=== PATIENT | female | born 1955 | race Caucasian/White ===

== ENCOUNTER 2022-01-28 12:23 | Day surgery (SDC) | payer OTHER, SELFPAY ==
[2022-01-22 11:32] VITALS: BMI 29.2
--- NOTE | 2022-01-28 09:01 | WPDHPUPDATE1 ---
History and Physical Update Update Date/Time: 01/28/22 09:01 History and Physical has been reviewed, including an updated exam of the patient. There are NO changes in the patient's condition. Risks, benefits, and alternatives have been discussed and questions answered. Patient agrees to proceed with procedure.
[2022-01-28 12:40] VITALS: BP 175/86; PULSE 72; RESP 16
[2022-01-28] MEDS: TETRACAINE HCL 0.5% OPHTH SOLN 4 ML BTL 1 DROP AFFCTD EYE ×3 (12:42→12:52)
--- NOTE | 2022-01-28 12:42 | W.PM.PROC2 ---
Procedure Note - Detailed Date of Procedure 01/28/22 Pre-op Diagnosis Posterior Capsule Opacification Post-op Diagnosis Same Procedure Performed YAG Laser Capsulotomy [RIGHT] eye Surgeon Kush Solitario MD Anesthesia Other (Topical) Description of Procedure After appropriate discussion, consent and topical anesthesia, the patient was placed in front of the laser. All settings were checked. The laser procedure was then performed. The patient tolerated the procedure well. Power Level: [3.5MJ] Number of Pulses: [20] Complications None Condition Stable Disposition Same day
== END 2022-01-28 13:00 | disposition home or self-care (01) ==
PROVIDERS: PCP Family Medicine
PROC: (CPT 66821; principal; 2022-01-28 13:00)
DX: H26.491 Other secondary cataract, right eye (principal)
CPT/HCPCS: 66821

== ENCOUNTER 2022-03-27 18:22 | Emergency (ER) | payer OTHER, SELFPAY ==
--- NOTE | 2022-03-27 18:27 | ED.ABDPAIN ---
HPI - Abdominal Pain General Chief Complaint: Abdominal Pain Stated Complaint: Abdominal Pain Time Seen by Provider: 03/27/22 18:27 Source: patient and RN notes reviewed Mode of arrival: ambulatory Limitations: no limitations History of Present Illness HPI narrative: 66-year-old female presents to the [facility] with complaints of abdominal pain. Patient recently discharged, Wednesday, 5 days ago from [facility]. was admitted March 17 for a bowel obstruction. 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 Patient is reporting pain 10 out of 10 without vomiting or diarrhea. Does note that she is more bloated than normal. Reports severe lower abdominal pain. States that she drove past the ER closer to home when she realized she could not make it back to the ER stopped at the [facility] and wanted EMS called. MD elicited complaint: abdominal pain Pertinent past history: other (Bowel obstruction) Related Data Home Medications Medication Instructions Recorded Confirmed amlodipine 5 mg tablet (Norvasc) 5 mg PO DAILY 01/22/22 01/22/22 buspirone 10 mg tablet 7.5 mg PO HS 01/22/22 01/22/22 clopidogrel 75 mg tablet (Plavix) 75 tablet PO DAILY 01/22/22 01/22/22 cyclobenzaprine 10 mg tablet 10 mg PO HS 01/22/22 01/22/22 famotidine 20 mg tablet (Pepcid) 20 mg PO BID 01/22/22 01/22/22 gabapentin 300 mg tablet 300 mg PO BID 01/22/22 01/22/22 insulin aspart U-100 100 unit/mL 1 sliding scale dose subcut 01/22/22 01/22/22 subcutaneous solution (Novolog USEASDIRECTD U-100 Insulin aspart) insulin glargine 100 unit/mL 15 unit subcut DAILY 01/22/22 01/22/22 subcutaneous cartridge levothyroxine 300 mcg tablet 300 mcg PO DAILY 01/22/22 01/22/22 ufqraj-rrwdarqz-tbfdope 4 cap PO QID 01/22/22 01/22/22 36,000-114,000-180,000 unit capsule,delay rel (Creon) nebivolol 10 mg tablet (Bystolic) 10 mg PO DAILY 01/22/22 01/22/22 pantoprazole 40 mg tablet,delayed 40 mg PO BID 01/22/22 01/22/22 release (Protonix) pitavastatin calcium 2 mg tablet 2 mg PO DAILY 01/22/22 01/22/22 (Livalo) ranolazine 1,000 mg 1,000 mg PO BID 01/22/22 01/22/22 tablet,extended release,12 hr zolpidem 5 mg tablet (Ambien) 5 mg PO HS 01/22/22 01/22/22 Allergies Allergy/AdvReac Type Severity Reaction Status Date / Time Penicillins Allergy Unknown Hives Verified 01/28/22 12:45 Sulfa (Sulfonamide Allergy Unknown Hives Verified 01/28/22 12:45 Antibiotics) vancomycin Allergy Unknown Hives Verified 01/28/22 12:45 HYDROMORPHONE HCL Allergy Unknown Unknown Uncoded 01/22/22 11:05 PROCHLORPERAZINE EDISYLATE Allergy Unknown Unknown Uncoded 01/22/22 11:05 PROCHLORPERAZINE MALEATE Allergy Unknown Unknown Uncoded 01/22/22 11:05 PROPOXYPHENE NAPSYLATE Allergy Unknown Unknown Uncoded 01/22/22 11:05 Review of Systems Review of Systems: All systems reviewed & are unremarkable except as noted in HPI and below Constitutional: Constitutional: Reports no additional constitutional complaints, Denies chills and Denies fever(s) Eyes: Eyes: Reports no additional eye complaints ENT: Reports system reviewed and no additional complaints, except as documented Cardiovascular: Cardiovascular: Reports no additional cardiovascular complaints Respiratory: Respiratory: Reports no additional respiratory complaints Gastrointestinal: Gastrointestinal: Reports as per HPI, Reports abdominal pain, Reports bloating, Denies diarrhea, Denies nausea and Denies vomiting Musculoskeletal: Musculoskeletal: Reports no additional musculoskeletal complaints Integumentary/Breasts: Skin/Breast: Reports system reviewed and no additional complaints, except as docu Neurologic: Reports system reviewed and no additional complaints, except as documented Psychiatric: Psychiatric: Reports no additional psychiatric complaints Allergic/Immunologic: Allergic/Immunologic: Reports no additional allergic/immunologic complaints PMFSH Past Medical History Medical H
[2022-03-27 18:34] VITALS: BP 226/118; PULSE 81; RESP 20; TEMP 36.6; O2SAT 100
== END 2022-03-27 18:44 | disposition short-term general hospital (02) ==
PROVIDERS: Emergency Provider Nurse Practitioner; PCP Family Medicine
DX: R10.9 Unspecified abdominal pain (principal)
CPT/HCPCS: 99215; G0463

== ENCOUNTER 2022-11-28 09:07 | Outpatient (CLI) | payer OTHER, SELFPAY ==
[2022-11-28 10:06] LABS: Basophils Absolute Auto 0.1 K/mm3 (0.0-0.1); Basophils Percent Auto 0.5 % (0.2-1.2); Eosinophils Absolute Auto 0.3 K/mm3 (0-0.3); Eosinophils Percent Auto 2.4 % (0-4.4); Hematocrit 42.5 % (37.0-47.0); Hemoglobin 13.7 g/dL (12.0-15.0); Immature Granulocyte Absolute 0.07 K/mm3 (0.00-0.031); Immature Granulocyte Percent A 0.5 % (0-0.5); Lymphocytes Absolute Auto 3.86 K/mm3 (0.9-3.2); Mean Corpuscular HGB Conc 32.2 g/dl (32-36); Mean Platelet Volume 10.8 fl (7.4-10.4); Monocytes Absolute Auto 0.9 K/mm3 (0.1-0.6); Monocytes Percent Auto 6.8 % (2.6-8.5); Neutrophils Absolute Auto 7.7 K/mm3 (1.3-6.7); Neutrophils Percent Auto 59.8 % (45.5-73.1); Platelet Count Result 325 k/mm3 (150-375); Red Blood Count 4.72 M/mm3 (4.2-5.4); Red Cell Distribution Width 15.7 % (11.5-14.5); White Blood Count 12.9 K/mm3 (4.5-10.0)
[2022-11-28 10:33] LABS: Alanine Aminotransferase 32 U/L (6-35); Albumin Level 4.1 g/dL (3.5-5.1); Alkaline Phosphatase 93 U/L (38-126); Anion Gap 2 mmol/L (8-16); Aspartate Amino Transferase 26 U/L (14-36); Bilirubin,Total 0.5 mg/dL (0.2-1.3); Blood Urea Nitrogen 19 mg/dL (7-17); Carbon Dioxide 33 mmol/L (22-30); Chloride 103 mmol/L (98-107); Cholesterol 127 mg/dL (0-200); Estimated Glomerular Filt Rate > 60; Glucose 127 mg/dL (65-110); HDL Direct 50 mg/dL; Potassium 4.2 mmol/L (3.4-5.0); Sodium 138 mmol/L (137-145); Triglycerides 98 mg/dL (<150)
[2022-11-28 10:44] LABS: LDL Cholesterol Direct 64 mg/dL
[2022-11-28 10:53] LABS: Creatinine Urine 34.3 mg/dL
[2022-11-28 10:57] LABS: Free T4 Free Thyroxine 1.28 ng/mL (0.78-2.19); Vitamin D 25 Hydroxy 29.7 ng/mL
[2022-11-28 10:58] LABS: MALB Creatinine Ratio < 17.5 mg/g (0-30); Microalbumin Urine Random < 6.0 mg/L (0-16.7)
== END 2022-11-28 09:08 | disposition home or self-care (01) ==
PROVIDERS: Family Medicine; PCP Family Medicine
DX: E11.65 Type 2 diabetes mellitus with hyperglycemia (principal); Z79.4 Long term (current) use of insulin; E55.9 Vitamin D deficiency, unspecified
CPT/HCPCS: 36415; 80053; 80061; 82043; 82306; 84439; 84443; 85025

== ENCOUNTER 2024-02-13 19:04 | Emergency (ER) | payer OTHER, BC, SELFPAY ==
--- NOTE | ~2024-02-13 | XR_ITS ---
Lumbosacral Spine: AP and lateral views Clinical History: Pain Findings: The normal lordotic curve is maintained. No fracture seen. There is 6 mm anterolisthesis of L4 over L5. There is moderate to advanced degenerative facet arthropathy at L4-L5 and L5-S1. There i s moderate facet arthropathy at L3-L4. The sacroiliac joints are normally outlined. Impression: 6 mm anterolisthesis of L4 over L5. Facet arthropathy, as above. Extensive stool suggests constipation. Reviewed, dictated and finalized at location M. Impression: 6 mm anterolisthesis of L4 over L5. Facet arthropathy, as above. Extensive stool suggests constipation.
[2024-02-13 19:13] VITALS: BP 153/77; PULSE 86; RESP 16; TEMP 36.6; O2SAT 97
--- NOTE | 2024-02-13 22:56 | ED.BACK ---
HPI - Back Pain/Injury General Chief Complaint: Back Pain/Injury Stated Complaint: R sided back pain Time Seen by Provider: 02/13/24 22:08 History of Present Illness HPI Narrative: 68-year-old female present to the emergency department for evaluation of worsening lower back pain. Patient states she has lower right-sided back pain. Patient denies any associated numbness or weakness. Patient denies any pain that radiates down her leg. Patient denies any change in bowel or bladder habits. Patient has been taking Tylenol for pain control with no significant improvement. Related Data Home Medications Medication Instructions Recorded Confirmed amlodipine 5 mg tablet (Norvasc) 5 mg PO DAILY 01/22/22 01/22/22 buspirone 10 mg tablet 7.5 mg PO HS 01/22/22 01/22/22 clopidogrel 75 mg tablet (Plavix) 75 tablet PO DAILY 01/22/22 01/22/22 cyclobenzaprine 10 mg tablet 10 mg PO HS 01/22/22 01/22/22 famotidine 20 mg tablet (Pepcid) 20 mg PO BID 01/22/22 01/22/22 gabapentin 300 mg tablet 300 mg PO BID 01/22/22 01/22/22 insulin aspart U-100 100 unit/mL 1 sliding scale dose subcut 01/22/22 01/22/22 subcutaneous solution (Novolog USEASDIRECTD U-100 Insulin aspart) insulin glargine 100 unit/mL 15 unit subcut DAILY 01/22/22 01/22/22 subcutaneous cartridge levothyroxine 300 mcg tablet 300 mcg PO DAILY 01/22/22 01/22/22 pchvaz-yotsznzc-burlkfs 4 cap PO QID 01/22/22 01/22/22 36,000-114,000-180,000 unit capsule,delay rel (Creon) nebivolol 10 mg tablet (Bystolic) 10 mg PO DAILY 01/22/22 01/22/22 pantoprazole 40 mg tablet,delayed 40 mg PO BID 01/22/22 01/22/22 release (Protonix) pitavastatin calcium 2 mg tablet 2 mg PO DAILY 01/22/22 01/22/22 (Livalo) ranolazine 1,000 mg 1,000 mg PO BID 01/22/22 01/22/22 tablet,extended release,12 hr zolpidem 5 mg tablet (Ambien) 5 mg PO HS 01/22/22 01/22/22 Allergies Allergy/AdvReac Type Severity Reaction Status Date / Time Penicillins Allergy Unknown Hives Verified 01/28/22 12:45 Sulfa (Sulfonamide Allergy Unknown Hives Verified 01/28/22 12:45 Antibiotics) vancomycin Allergy Unknown Hives Verified 01/28/22 12:45 HYDROMORPHONE HCL Allergy Unknown Unknown Uncoded 01/22/22 11:05 PROCHLORPERAZINE EDISYLATE Allergy Unknown Unknown Uncoded 01/22/22 11:05 PROCHLORPERAZINE MALEATE Allergy Unknown Unknown Uncoded 01/22/22 11:05 PROPOXYPHENE NAPSYLATE Allergy Unknown Unknown Uncoded 01/22/22 11:05 Review of Systems Review of Systems: All systems reviewed & are unremarkable except as noted in HPI and below PMFSH Past Medical History Medical History (Updated 02/14/24 @ 00:01 by Maria E Knowles) Bowel obstruction Surgical History Surgical History (Updated 03/27/22 @ 19:15 by Tara Farris APRN) H/O heart bypass surgery H/O splenectomy Family History Family History Other Diabetes mellitus Family history of Alzheimer's disease Family history of arthritis Family history of cardiovascular disease Family history of glaucoma Family history of malignant neoplasm Hypertension Social History Social History Smoking status: Never smoker Alcohol intake: current Exam Narrative: APPEARANCE: Uncomfortable appearing HEAD: normocephalic, atraumatic. EYES: PERRLA/EOMI, conjunctivae clear. NOSE: Normal no drainage EARS:TMS clear with good light reflex. THROAT: Pharynx clear, no exudate. NECK: Supple. No adenopathy, no masses. RESPIRATORY: Airway patent, respirations nonlabored. Clear to auscultation bilaterally, no rales, rhonchi, wheezing. CARDIOVASCULAR: Regular rate and rhythm without murmurs rubs or gallops. ABDOMINAL: Soft, nontender, nondistended, normal bowel sounds MUSCULOSKELETAL: Right lower paraspinal tenderness to palpation NEURO: Alert. Cranial nerves II through XII intact. Good gait. Good coordination SKIN: Warm, dry. Normal Color Course Course
[2024-02-13] MEDS: HYDROcodone/acetaminophen (*CRX) 5-325 MG TABLET 1 TAB PO (23:03)
[2024-02-13] MEDS: CYCLOBENZAPRINE HCL 10 MG TABLET PO (23:03)
[2024-02-13 23:38] VITALS: BP 167/86; PULSE 75; RESP 16; TEMP 37; O2SAT 93
== END 2024-02-13 23:40 | disposition home or self-care (01) ==
PROVIDERS: Emergency Provider Emergency Medicine; PCP Family Medicine
DX: M54.50 Low back pain, unspecified (principal); Z79.02 Long term (current) use of antithrombotics/antiplatelets; Z79.4 Long term (current) use of insulin; Z79.899 Other long term (current) drug therapy; Z95.1 Presence of aortocoronary bypass graft; Z90.81 Acquired absence of spleen
CPT/HCPCS: 72100; 99283; A9270

== ENCOUNTER 2024-08-02 01:44 | Emergency (ER) | payer OTHER, BC, SELFPAY ==
[2024-08-02] VITALS (19 sets, daily range): BP systolic 156–201; BP diastolic 95–118; PULSE 86–110; RESP 12–29; TEMP 36.6; O2SAT 95–99
[2024-08-02 02:50] LABS: Basophils Absolute Auto 0.1 K/mm3 (0.0-0.1); Basophils Percent Auto 0.7 % (0.2-1.2); Eosinophils Absolute Auto 0.6 K/mm3 (0-0.3); Eosinophils Percent Auto 4.2 % (0-4.4); Hematocrit 39.7 % (37.0-47.0); Immature Granulocyte Absolute 0.07 K/mm3 (0.00-0.031); Immature Granulocyte Percent A 0.5 % (0-0.5); Lymphocytes Absolute Auto 5.11 K/mm3 (0.9-3.2); Lymphocytes Percent Auto 33.5 % (18.3-44.2); Mean Corpuscular HGB Conc 32.7 g/dl (32-36); Mean Corpuscular Hemoglobin 29.7 pg (26-34); Mean Corpuscular Volume 90.6 fl (80-100); Mean Platelet Volume 10.2 fl (7.4-10.4); Monocytes Absolute Auto 1.1 K/mm3 (0.1-0.6); Monocytes Percent Auto 7.5 % (2.6-8.5); Neutrophils Absolute Auto 8.2 K/mm3 (1.3-6.7); Neutrophils Percent Auto 53.6 % (45.5-73.1); Platelet Count Result 486 k/mm3 (150-375); Red Blood Count 4.38 M/mm3 (4.2-5.4); Red Cell Distribution Width 14.6 % (11.5-14.5); White Blood Count 15.3 K/mm3 (4.5-10.0)
[2024-08-02 03:01] LABS: Anion Gap 5 mmol/L (4-12); Blood Urea Nitrogen 16 mg/dL (7-17); Calcium 9.6 mg/dL (8.4-10.2); Carbon Dioxide 25 mmol/L (22-30); Chloride 107 mmol/L (98-107); Estimated CRCL calculation 65 ml/min; Estimated Glomerular Filt Rate > 60; Glucose 201 mg/dL (65-110); Potassium 3.7 mmol/L (3.4-5.0); Sodium 137 mmol/L (137-145)
--- NOTE | 2024-08-02 03:01 | ECG_ITS ---
Test Date: 2024-08-02 03:03:54 Measurements Intervals [place] Rate: 88 P: 23 NH: 155 QRS: 6 QRSD: 110 T: 59 QT: 380 QTc: 462 Interpretive Statements SINUS RHYTHM INCOMPLETE RIGHT BUNDLE BRANCH BLOCK [90+ ms QRS DURATION, TERMINAL R IN V1/V2, 40+ ms S IN I/aVL/V4/V5/V6] No previous ECG available for comparison Electronically Signed On 08-07-2024 10:12:36 FILM AND VIDEO GRAPHICS DESIGNER by Doug Traore M.D.
--- NOTE | 2024-08-02 03:01 | PC.NURSE ---
pt called out to nursing station I have chest pain. ekg ordered.
[2024-08-02 03:50] LABS: Add Urine Microscopic? YES; Appearance Urine Clear (Clear); Bacteria Urine 4+ /hpf; Bilirubin Urine Negative (Negative); Blood Urine 2+ (Negative); Color Urine Yellow (Yellow); Glucose Urine UA Negative (Negative); Ketones Urine Negative (Negative); Leukocyte Esterase Ur Trace LEU/UL (Negative); Nitrate Urine Positive (Negative); Non Pathogenic Casts 0-2; Protein Urine Negative (Negative); Specific Grav Ur 1.009 (1.001-1.035); Squamous Epithelial Cell Urine None Seen /hpf (Few); Urobilinogen Urine 0.2 mg/dL (<2.0); WBC Urine 0-5 /hpf (0-3); pH Urine 5.5 (5.0-9.0)
[2024-08-02] MEDS: NITROGLYCERIN SL 0.4 MG TABLET SUBLINGUAL (05:43)
[2024-08-02] MEDS: ACETAMINOPHEN 500 MG TABLET 1000 MG PO (05:43)
[2024-08-02 06:31] LABS: Thyroid Stimulating Hormone Reflex 0.741 uIU/mL (0.465-4.68)
--- NOTE | 2024-08-02 06:52 | ED_ITS ---
HPI - General Adult General Chief complaint: Recheck/Abnormal Lab/Rx Stated complaint: hypoglycemia Time Seen by Provider: 08/02/24 02:52 History of Present Illness HPI narrative: This is a 69-year-old female with insulin-dependent diabetes presenting with fluctuating blood sugars. Patient has been taking her Lantus and NovoLog as per usual. She has a glucose measuring device that his tractor glucose throughout the day and she has been having swings between 250 and 70. she says this is not typical for her happen once in the past when her TSH was abnormal. Patient is denying fevers chills chest pain difficulty breathing or abdominal pain. She denies dysuria but says she has been having urinary urgency and frequency Related Data Home Medications ?Medication ?Instructions ?Recorded ?Confirmed ?Last Taken ?Type amlodipine 5 mg tablet (Norvasc) 5 mg PO DAILY 01/22/22 01/22/22 Unknown History buspirone 10 mg tablet 7.5 mg PO HS 01/22/22 01/22/22 Unknown History clopidogrel 75 mg tablet (Plavix) 75 tablet PO DAILY 01/22/22 01/22/22 Unknown History cyclobenzaprine 10 mg tablet 10 mg PO HS 01/22/22 01/22/22 Unknown History famotidine 20 mg tablet (Pepcid) 20 mg PO BID 01/22/22 01/22/22 Unknown History gabapentin 300 mg tablet 300 mg PO BID 01/22/22 01/22/22 Unknown History insulin aspart U-100 100 unit/mL 1 sliding scale dose subcut 01/22/22 01/22/22 Unknown History subcutaneous solution (Novolog USEASDIRECTD U-100 Insulin aspart) insulin glargine 100 unit/mL 15 unit subcut DAILY 01/22/22 01/22/22 Unknown History subcutaneous cartridge levothyroxine 300 mcg tablet 300 mcg PO DAILY 01/22/22 01/22/22 Unknown History ubhuya-rirttbmd-jbkhwme 4 cap PO QID 01/22/22 01/22/22 Unknown History 36,000-114,000-180,000 unit capsule,delay rel (Creon) nebivolol 10 mg tablet (Bystolic) 10 mg PO DAILY 01/22/22 01/22/22 Unknown History pantoprazole 40 mg tablet,delayed 40 mg PO BID 01/22/22 01/22/22 Unknown History release (Protonix) pitavastatin calcium 2 mg tablet 2 mg PO DAILY 01/22/22 01/22/22 Unknown History (Livalo) ranolazine 1,000 mg 1,000 mg PO BID 01/22/22 01/22/22 Unknown History tablet,extended release,12 hr zolpidem 5 mg tablet (Ambien) 5 mg PO HS 01/22/22 01/22/22 Unknown History Allergies Allergy/AdvReac Type Severity Reaction Status Date / Time Penicillins Allergy Unknown Hives Verified 08/02/24 01:45 Sulfa (Sulfonamide Allergy Unknown Hives Verified 08/02/24 01:45 Antibiotics) vancomycin Allergy Unknown Hives Verified 08/02/24 01:45 HYDROMORPHONE HCL Allergy Unknown Unknown Uncoded 08/02/24 01:45 PROCHLORPERAZINE EDISYLATE Allergy Unknown Unknown Uncoded 08/02/24 01:45 PROCHLORPERAZINE MALEATE Allergy Unknown Unknown Uncoded 08/02/24 01:45 PROPOXYPHENE NAPSYLATE Allergy Unknown Unknown Uncoded 08/02/24 01:45 [facility] Past Medical History Medical History Bowel obstruction Surgical History Surgical History H/O splenectomy H/O heart bypass surgery Family History Family History Other Diabetes mellitus Family history of Alzheimer's disease Family history of arthritis Family history of cardiovascular disease Family history of glaucoma Family history of malignant neoplasm Hypertension Social History Social History Smoking status: Never smoker Alcohol intake: current Exam 2 Narrative: APPEARANCE: No apparent distress. well-appearing, talkative Head: atraumatic. EYES: EOMI, NOSE: Atraumatic NECK: Trachea midline RESPIRATORY: No increased rate of breathing clear to auscultation CARDIOVASCULAR: RRR, ABDOMINAL: Non-distended soft nontender MUSCULOSKELETAl: No obvious deformities NEURO: Alert. Moving 4/4 extremities SKIN:: Warm, dry. Normal color PSYCHIATRIC: Normal affect Course Vital Signs Vital signs: Vital Signs Temperature 97.9 F 08/02/24 01:48 Pulse Rate 110 H 08/02/24 01:48 Respiratory Rate 21 H 08/02/24 01:48 Blood Pressure 201/118 H 08/02/24 01:48 Pulse Oximetry 99 08/02/24 01:48 Oxygen Delivery Room Air 08/02/24 01:48 Temperature 97.9 F 08/02/24 01:48 Pulse Rate 100 08/02/24 06:00 Respiratory Rate 16 08/02/24 06:00 Blood Pressure 171/97 H 08/02/24 06:00 Pulse Oximetry 97 08/02/24 06:00 Oxygen Delivery Room Air 08/02/24 01:48 Medical Decision Making MDM Narrative Medical decision making narrative: -Course: 69-year-old female presenting with fluctuating blood sugars. They have been stable in the ED in the fluctuations stopped. screening lab work was obtained. Patient's white count of 15. Urine with leuk esterase and nitrites and +4 bacteria. no white blood cells. I discussed this with the patient she has having urgency and frequency. Unlikely to be the cause of her fluctuating blood sugars but we can treat that and see if that helps. patient requested that we check her TSH which was normal. She also requested a nitro and Tylenol for her chronic chest pain. These were also provided. Patient declined any sort of cardiac workup including chest x-ray or troponins. Patient was informed of hers results is very happy with care. Patient was discharged. Encouraged follow-up with primary care physician. -DDX includes but is not limited to: Infection, insulin use, -Co-morbidities complicating care: insulin-dependent diabetes, hypothyroid -Independent interpretation of studies: labs reviewed Independent EKG interpretation: Rhythm [sinus], Rate [88], [place] -[normal], [place] -[normal], QRS [narrow], QTC [normal], T waves -[negative for concerning inversions], ST Segments - [Negative for concerning elevations] Final interpretations: NSR w/ incomplete rbbb. -Shared decision making / Disposition: Discharge Vital Signs Vital Signs: Vital Signs Temperature 97.9 F 08/02/24 01:48 Pulse Rate 110 H 08/02/24 01:48 Respiratory Rate 21 H 08/02/24 01:48 Blood Pressure 201/118 H 08/02/24 01:48 Pulse Oximetry 99 08/02/24 01:48 Oxygen Delivery Room Air 08/02/24 01:48 Temperature 97.9 F 08/02/24 01:48 Pulse Rate 100 08/02/24 06:00 Respiratory Rate 16 08/02/24 06:00 Blood Pressure 171/97 H 08/02/24 06:00 Pulse Oximetry 97 08/02/24 06:00 Oxygen Delivery Room Air 08/02/24 01:48 Lab Data 08/02/24 02:45 08/02/24 02:45 Labs: Lab Results 08/02/24 08/02/24 08/02/24 Range/Units 02:44 02:45 03:38 WBC 15.3 H (4.5-10.0) K/mm3 RBC 4.38 (4.2-5.4) M/mm3 Hgb 13.0 (12.0-15.0) g/dL Hct 39.7 (37.0-47.0) % MCV 90.6 (80-100) fl MCH 29.7 (26-34) pg MCHC 32.7 (32-36) g/dl RDW 14.6 H (11.5-14.5) % Plt Count 486 H (150-375) k/mm3 MPV 10.2 (7.4-10.4) fl Immature Gran % (Auto) 0.5 (0-0.5) % Neut % (Auto) 53.6 (45.5-73.1) % Lymph % (Auto) 33.5 (18.3-44.2) % [place] % (Auto) 7.5 (2.6-8.5) % Eos % (Auto) 4.2 (0-4.4) % Baso % (Auto) 0.7 (0.2-1.2) % Lymph # (Auto) 5.11 H (0.9-3.2) K/mm3 [place] # (Auto) 1.1 H (0.1-0.6) K/mm3 Eos # (Auto) 0.6 H (0-0.3) K/mm3 Baso # (Auto) 0.1 (0.0-0.1) K/mm3 Abs Immat Gran (auto) 0.07 H (0.00-0.031) K/mm3 Absolute Neuts (auto) 8.2 H (1.3-6.7) K/mm3 Absolute Nucleated RBC 0.000 (0.0-0.012) K/mm3 Nucleated RBC % 0.0 (0.0-0.2) % Sodium 137 (137-145) mmol/L Potassium 3.7 (3.4-5.0) mmol/L Chloride 107 (98-107) mmol/L Carbon Dioxide 25 (22-30) mmol/L Anion Gap 5 (4-12) mmol/L BUN 16 (7-17) mg/dL Creatinine 0.70 (0.7-1.0) mg/dL Estim Creat Clear Calc 65 ml/min Estimated GFR > 60 (59 - ) Glucose 201 H (65-110) mg/dL Calcium 9.6 (8.4-10.2) mg/dL TSH (Reflex) 0.741 (0.465-4.68) uIU/mL Urine Color Yellow (Yellow) Urine Appearance Clear (Clear) Urine pH 5.5 (5.0-9.0) Ur Specific [place] 1.009 (1.001-1.035) Urine Protein Negative (Negative) mg/dL Urine Glucose (UA) Negative (Negative) mg/dL Urine Ketones Negative (Negative) mg/dL Ur Blood (Man) 2+ H (Negative) Urine Nitrate Positive H (Negative) Urine Bilirubin Negative (Negative) Urine Urobilinogen 0.2 (<2.0) mg/dL Leukocyte Esterase Rfl Trace H (Negative) ENIO/UL Urine RBC 11-20 H (0-2) /hpf Urine WBC 0-5 (0-3) /hpf Ur Squamous Epith Cells None seen (Few) /hpf Urine Bacteria 4+ H /hpf Urine Casts 0-2 Discharge Plan Discharge Clinical Impression: Hypoglycemia, Acute UTI Patient Disposition: Home, Self-Care Condition: Stable Instructions: Antibiotic Form, Hypoglycemia in a Person with Diabetes (DC), Dysuria (ED) Additional Instructions: You were seen emergency department for fluctuating blood sugars. Thankfully your blood sugars have stabilized. I am unsure of the cause. please continue to monitor your blood sugars and eat food and use insulin appropriately. You were found to have some symptoms that are concerning for UTI so we will treat you with Keflex although I am not convinced that is the cause of your fluctuating sugars. If you develop any new symptoms such as fevers chills chest pain difficulty breathing abdominal pain or low blood sugars return to the ED for re-evaluation. Patient Language: Surinamese Prescriptions: No Action methylprednisolone [Medrol (Mateo)] 4 mg tablets,dose pack See Rx Instructions .ROUTE .COMPLEX Qty: 21 0RF Rx Instructions: for 6 days cyclobenzaprine 10 mg tablet 10 mg PO BID PRN (Reason: muscle spasm) Qty: 14 0RF hydrocodone-acetaminophen 5-325 mg tablet 1 tablet PO Q12H PRN (Reason: pain) Qty: 14 0RF cyclobenzaprine [Flexeril] 10 mg Tablet 10 mg PO HS levothyroxine 300 mcg Tablet 300 mcg PO DAILY clopidogrel [Plavix] 75 mg tablet 75 tablet PO DAILY amlodipine [Norvasc] 5 mg Tablet 5 mg PO DAILY famotidine [Pepcid] 20 mg Tablet 20 mg PO BID insulin aspart U-100 [Novolog U-100 Insulin aspart] 100 unit/mL Solution 1 sliding scale dose SUBCUT USEASDIRECTD pantoprazole [Protonix] 40 mg Tablet,Delayed Release (Dr/Ec) 40 mg PO BID buspirone [BuSpar] 10 mg Tablet 7.5 mg PO HS zolpidem [Ambien] 5 mg Tablet 5 mg PO HS gabapentin 300 mg Tablet 300 mg PO BID Lantus U-100 Insulin 100 unit/mL Cartridge 15 unit SUBCUT DAILY ranolazine 1,000 mg tablet extended release 12 hr 1,000 mg PO BID nebivolol [Bystolic] 10 mg Tablet 10 mg PO DAILY Livalo 2 mg Tablet 2 mg PO DAILY Creon 36,000-114,000- 180,000 unit Capsule,Delayed Release(Dr/Ec) 4 cap PO QID Rx Instructions: administer with meals and/or snacks Follow-up/Referrals: Liam,Ramirez Gorman MD [Primary Care Provider] - 1 Week
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
--- OUTSIDE RECORDS SUMMARY | 2024-08-09 01:53 | XMS_ITS ---
Author Organization [facility] [place] Address [address] [place] [address] Care Team Providers Care Psychiatric Rn Name Role Phone Jayce Irby Unavailable [phone] ALLERGIES Allergen (clinical drug ingredient) Drug/Non Drug [...] Drug Allergy Activ e REASON FOR VISIT BCBS/ FU Visit and Poss. Facets (s)--OFF Plavix 5-7 days MEDICATIONS Medication SIG (Take, Route, Frequency, Duration) Notes Start Date End Date Status HYDROcodone-Acetaminop hen 5-325 MG 1 tablet as needed Orally q 6-8 hours PRN pain for 5 days 11/19/2023 Active busPIRone HCl 7.5 MG 1 tablet Orally Twice a day Active Alendronate Sodium 70 MG 1 tablet 30 minutes before the first food, beverage or medicine of the day with plain water Orally Active Aspirin 81 MG 1 tablet Orally Once a day Active Amitriptyline HCl 10 MG 1 tablet at bedtime Orally Once a day Active Levothyroxine Sodium 300 MCG 1 tablet in the morning on an empty stomach Orally Once a day Active hydrOXYzine HCl 25 MG 1 tablet as needed Orally Once a day Active HYDROcodone-Acetaminop hen 5-325 MG 1 tablet as needed Orally every 6-8 hrs PRN pain; please use sparingly for 5 days Aware that she takes ambien and cyclobenzaprine; aware of allergy to hydomorphone; she has taken this medication in past without difficulty 11/19/2023 Active Calcium 500 MG 1 tablet with meals Orally Twice a day Active Glucagon 1 MG/0.2ML as directed Subcutaneous Active Pitavastatin Calcium 2 MG 1 tablet Orally Once a day Active Levothyroxine Sodium 200 MCG 1 tablet in the morning on an empty stomach Orally Once a day Active Vitamin D2 50 MCG (2000 UT) 1 tablet Orally Once a day Active Multivitamin - 1 tablet Orally Once a day Active Vitamin D3 125 MCG (5000 UT) 1 tablet Orally Once a day Active Pantoprazole Sodium 40 MG 1 tablet Orally Once a day Active Insulin Aspart 100 UNIT/ML as directed Injection Active Nebivolol HCl 10 MG 1 tablet Orally Once a day Active Vitamin B-12 1000 MCG 1 tablet Orally Once a day Active Insulin Glargine-yfgn 100 UNIT/ML as directed Subcutaneous Active cloNIDine 0.2 MG/24HR 1 patch to skin Transdermal Active Clopidogrel Bisulfate 75 MG 1 tablet Orally Once a day Active Norvasc 5 MG 1 tablet Orally Once a day Active Famotidine 20 MG 1 tablet at bedtime as needed Orally Once a day Active Diphenoxylate-Atropine 2.5-0.025 MG/5ML 5 mL as needed Orally Four times a day Active Cyclobenzaprine HCl 10 MG 1 tablet at bedtime as needed Orally Once a day Active VITAL SIGNS Temperature 99 degrees Fahrenheit 11/19/2023 Blood pressure systolic 162 mm Hg 11/19/19 24 Blood pressure diastolic 94 mm Hg 024 Heart Rate 76 /min 11/19/2023 Respiratory Rate 18 /min 11/19/2023 Height 63 in 11/19/2023 Weight 155 lbs 11/19/2023 BMI 27.45 kg/m2 11/19/2023 Encounters Encounter Location Date Provider Diagnosis [place] [facility] [address] [place] [place] [address] 11/19/2023 Jayce Irby Cervical spondylosis M47.812 and Neck pain M54.2 ASSESSMENTS Encounter Date Diagnosis Assessment Notes Treatment Notes Treatment Clinical Notes Section Notes 11/19/2023 Cervical spondylosis (ICD-10 - M47.812) Impression1. Interval development nonradicular right-sided neck pain attributed to right C2/3 and C3/4 facet arthropathy (cervical spondylosis).2. Patient has achieved near complete relief of previous left sided neck pain following left C7/T1 facet joint injection of 06/03/2023.3. Multiple level cervical spondylosis changes.Plan1. Proceed with right C2/3 and C 3/4 facet joint/medial branch injections with fluoroscopy. She does elect to receive IV sedation. Patient is aware that exogenously administered corticosteroids will result in transient elevation of blood sugar in diabetics.2. We discussed possible future candidacy for cervical facet RFA if on (2) occasions, she achieves 80% reduction of pain but of short-term duration.3. Patient indicated that she experienced a 3-5-day period of flareup following previous facet injection and requests a small supply of pain medication. Although patient has listed allergy to hydromorphone, as well as chronic use of Ambien, she has tolerated hydrocodone in the past. Prescription provided for hydrocodone/acetami nophen 5/325, 15 quantity, 1 tablet every 6-8 hours as needed pain. Prescription was sent electronically to designated pharmacy. The prescription was resent as we received a fax message from the pharmacy indicating that I needed to be aware that she takes generic Ambien and Flexeril.4. We discussed a course of physical therapy although the patient does not have interest in pursuing this at the present time.5. Otherwise, return to clinic as needed. Pain scores on numeric scale:Preinjec tion: 810Post injection: 10/09Clinical assessment completed only after patient fully recovered from propofol sedation. 11/19/2023 Neck pain (ICD-10 - M54.2) PLAN OF TREATMENT Medication Medication Name Sig Start Date Stop Date Notes HYDROcodone-Acetaminop hen 5-325 MG 1 tablet as needed Orally q 6-8 hours PRN pain for 5 days 11/19/2023 HYDROcodone-Acetaminop hen 5-325 MG 1 tablet as needed Orally every 6-8 hrs PRN pain; please use sparingly for 5 days 11/19/2023 Aware that she take s ambien and cyclobenzaprine; aware of allergy to hydomorphone; she has taken this medication in past without difficulty Treatment Notes Assessment Notes Cervical spondylosis Impression1. Interv al development nonradicular right-sided neck pain attributed to right C2/3 and C3/4 facet arthropathy (cervical spondylosis).2. Patient has achieved near complete relief of previous left sided neck pain following left C7/T1 facet joint injection of 06/03/2023.3. Multiple level cervical spondylosis changes.Plan1. Proceed with right C2/3 and C 3/4 facet joint/medial branch injections with fluoroscopy. She does elect to receive IV sedation. Patient is aware that exogenously administered corticosteroids will result in transient elevation of blood sugar in diabetics.2. We discussed possible future candidacy for cervical facet RFA if on (2) occasions, she achieves 80% reduction of pain but of short-term duration.3. Patient indicated that she experienced a 3-5-day period of flareup following previous facet injection and requests a small supply of pain medication. Although patient has listed allergy to hydromorphone, as well as chronic use of Ambien, she has tolerated hydrocodone in the past. Prescription provided for hydrocodone/acetaminophen 5/325, 15 quantity, 1 tablet every 6-8 hours as needed pain. Prescription was sent electronically to designated pharmacy. The prescription was resent as we received a fax message from the pharmacy indicating that I needed to be aware that she takes generic Ambien and Flexeril.4. We discussed a course of physical therapy although the patient does not have interest in pursuing this at the present time.5. Otherwise, return to clinic as needed. MEDICATIONS ADMINISTERED Medication Instructions Date of Administration Dosage Notes RIGHT C2/3 and C3/4 Facet Elvi int Injections 11/19/2023 Progress Notes * Steff MITTAL:1955 (68 yo F)Acc No.[id number]:11/19/2023 Progress Notes Patient:??Steff MITTAL Provider:??Jayce Irby DO :1955?Age:68 Y?Sex:Fe male Date:11/19/2023 Address:[address] [place], [place] [id number] Subjective: * Chief Complaints: * ?BCBS/ FU Visit and Pos s. Facets (s)--OFF Plavix 5-7 days * HPI: ?Follow-up Questionnaire:?Pain Evaluation??This patient encounter was conducted at the [facility]. The patient completed a questionnaire on the progress that has been made since the last office visit. This form was reviewed and the responses are included in this progress note..?Location of pain:??left neck, right neck.?Onset of pain:??years ago.?Average Pain Since Last Visit on Scale of 0 to 10:??7.?Number describing interference w/enjoyment of life:??5.?Relief from Injections/Medications:??c - I am better, but not great yet..?Improvement in functional ability:??c- I can do more stuff, but the pain still stops me from doing some things..?Level of Pain on 1-10 Scale w/ 10 being most severe- TODAY??8.?Level of Pain on 1-10 Scale w/ 10 being most severe- LEAST??6.?Level of Pain on 1-10 Scale w/ 10 being most severe- WORST??9.?Pain Level on 1-10 Scale w/ 10 being most severe- OVERALL??8.?Words that best describe the pain:??aching, sharp.?Duration of pain:??constant, mostly in the morning.?Aggravating/Associated factors of pain:??coughing, sneezing, rolling in bed, driving.?The Pain is Associated with:??headache.?Relieving factors of pain:??ice.? This 68-year-old KVPGV-sbgu-jubtesek female presents to the pain clinic today for follow-up visit and in anticipation of an injection. I last saw this patient on 06/03/2023, upon referral from Dr. Gaurang Demarco, her neurosurgical incident response consultant, and she underwent left C7/T1 facet joint injection. Patient initially indicated 70% relief of pain although upon further discussion, she describes little to no left-sided neck pain but interval development of right upper neck pain over the past 2 weeks, spontaneously. She describes persistent aching pain in the upper neck with associated morning headaches in the occipital region. Patient states that surgical options offered by Dr. Demarco would likely involve multiple level fusion which she hopes to avoid. She does not describe specific arm symptoms and rarely experiences paresthesias in the upper extremities. Patient has not been involved in physical therapy since approximately 2021 and seems disinterested in further physical therapy at this time. 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 She has history of coronary artery disease, undergoing previous two-vessel coronary artery bypass surgery in 2005. She also describes diabetes mellitus type 1. She is chronically on Plavix (clopidogrel). Patient indicates allergies to penicillin, sulfa antibiotics, and amoxicillin and hydromorphone. ?Imaging studies: ?CT cervical spine 11/05/2022 revealed significant facet arthropathy C2/3 and C7/T1, more pronounced on the left side. ?MRI cervical spine 12/02/2022 revealed reversal of normal lordotic curvature. Minimal anterior listhesis C7/T1. Degenerative disc changes C3/4 with minimal right-sided foraminal encroachment. Broad-based protrusion C6/7 with minimal right-sided foraminal encroachment. * ROS:?Pain Management ROS:?Patient Reports: GENERAL:??disturbed sleeping habits.??Patient Denies: GENERAL:??weight or appetite changes, fever, chills,.??Patient Denies: EYE:??eye infections, blurred vision, double vision, blindness.??Patient Denies: ENT:??hearing loss, inflamed nose, hoarseness, sore throat, bloody nose, sinusitis, dizziness.??Patient Denies: CARDIAC:??chest pains, heart murmur, skipped beats.??Patient Denies: GENITOURINARY??bladder incontinence, difficulty urinating.??Patient Denies: RESPIRATORY??cough, coughing up blood, wheezing, shortness of breath, difficulty breathing on exertion.??Patient Denies: GI??constipation, diarrhea, blood in stools, nausea/vomiting.??Patient Reports: NEUROLOGIC??headaches.??Patient Denies: NEUROLOGIC??dizziness, falling, seizures, numbness, tremor.??Patient Denies: ENDOCRINE??hot and cold flashes.??Patient Denies: HEMATOLOGICAL??easy bruisability, difficulty in clotting the blood.??Patient Denies: JOINTS??joint or [...] DM, Bladder cancer.??Mother: alive, dementia.?? * Social History:?Education:?How far did you get in your education?: Graduate School. * Medications:??TakingNorvasc 5 MG Tablet 1 tablet Orally Once a day Famotidine 20 MG Tablet 1 tablet at [...] 100 UNIT/ML Solution Pen-injector as directed Subcutaneous Pantoprazole Sodium 40 MG Tablet Delayed Release 1 tablet Orally Once a day Insulin Aspart 100 UNIT/ML Solution as directed Injection Nebivolol HCl 10 MG Tablet 1 tablet Orally Once a day Vitamin D3 125 [...] of the day with plain water Orally Taking Norvasc 5 MG Tablet 1 tablet Orally Once a day Taking Famotidine 20 MG Tablet 1 tablet at [...] tablet Orally Once a day Taking Vitamin B-12 1000 MCG Tablet 1 tablet Orally Once a day Taking Insulin Glargine-yfgn 100 UNIT/ML Solution Pen-injector as directed Subcutaneous Taking Pantoprazole Sodium 40 MG Tablet Delayed Release 1 tablet Orally Once a day Taking Insulin Aspart 100 UNIT/ML Solution as directed Injection Taking Nebivolol HCl 10 MG Tablet 1 tablet Orally Once a day Taking Vitamin D3 [...] of the day with plain water Orally DiscontinuedRanolazine ER 1000 MG Tablet Extended Release 12 Hour 1 tablet Orally Twice a day Ondansetron 8 MG Tablet Disintegrating 1 tablet on the tongue and allow to dissolve as needed Orally Once a day Zolpidem Tartrate 5 MG Tablet 1 tablet at bedtime as needed Orally Once a day Discontinued Ranolazine ER 1000 MG Tablet Extended Release 12 Hour 1 tablet Orally Twice a day Discontinued Ondansetron 8 MG Tablet Disintegrating 1 tablet on the tongue and allow to dissolve as needed Orally Once a day Discontinued Zolpidem Tartrate 5 MG Tablet 1 tablet at bedtime as needed Orally Once a day * Allergies:??CompazineDarvoce t-N 50DilaudidPenicillinSulfa AntibioticsVancomycinno[Allergies Verified] Objective: * Vitals:??Temp:99F, HR:76/min , BP:162/94mm Hg, Wt:155lbs, BMI:27.45Index, Ht: 63 in, RR:18/min, Ht-cm: 160.02 cm, Wt-k.31 kg. * Examination: ?DGS: Follow-up exam elements: ?General??The patient appeared in no distress. The patient is alert and oriented to time, place, and person..?Respiratory??The lungs are grossly clear to auscultation in all jacobsen.?Cardiovascular??Regular rate and rhythm with soft systolic murmur suspected right upper sternal border.? No appreciable peripheral edema noted..?Neck??Grossly normal head position observed.? She reports provocation of right-sided neck pain with extension and rotation to the right.? Only mild tenderness over the cervical paraspinal and trapezius area noted, more prominent on the right side..?Musculoskeletal??Bilateral shoulder range of motion remains normal without provocation of pain..?Neurologic??Patient is right-hand dominant.? She denies areas of persistent sensory loss in the upper extremities.? Upper extremity proximal and distal motor strength appears symmetrical.? DTRs trace to 1 bilateral biceps, triceps and brachioradialis.? Spurling's negative bilaterally.? She does not describe signs/symptoms of cervical myelopathy..? Assessment: * Assessment: 1.??Cervical spondylosis - M 47.812??2.??Neck pain - M54.2?? Plan: * Treatment: * Procedures:?Right C2/3 and C3/4 facet joint/medial branch injections with fluoroscopy After signing consent, patient was taken to procedure area where she was placed supine on fluoroscopically compatible table. Monitors were applied consisting of automatic blood pressure cuff, pulse oximeter, EKG and nasal cannula to monitor end-tidal CO2. She was sedated with incremental dosing of propofol, titrated to effect. Please refer to nursing notes for propofol dosages and vital signs throughout today's procedure. With head turned to the left, right side of neck was prepped with Betadine solution allowed to dry on the skin. Sterile drapes were applied and aseptic technique observed. Using right oblique fluoroscopic imaging, the right C2/3 and C3/4 facet joints were identified and overlying skin at each site anesthetized with 0.25% preservative-free bupivacaine via 27-gauge needle. Using posterolateral approaches, 25-gauge 3.5 inch spinal needles placed within the right C2/3 and C3/4 facet joints. After negative aspiration for blood, CSF or joint fluid, 0.5 mL volume containing 0.25% preservative-free bupivacaine with 2 mg preservative free and particulate free dexamethasone was deposited into each joint. [place] withdrawn tips intact. No complications encountered. Prep was wiped from the skin and latex free Band-Aid placed over puncture sites. She was transported to recovery area where she was observed for short while before being discharged in satisfactory condition. At discharge, she noted improvement of pain. Please refer to clinical notes for specific pain scores. Patient is also aware that exogenously administered corticosteroids will result in transient elevation of blood sugar in diabetics. ? * Therapeutic Injections:? RIGHT C2/3 and C3/4 Facet Joint Injections given by Jayce Irby DO * Procedure Codes:?? RIGHT C2/ 3 and C3/4 Facet Joint Injections * Preventive Medicine:?PQRS:?PQRS??G8417: BMI above normal (overweight) and f/u plan documented., G8428: Current medication with name, dosage, frequency, or route NOT documented, not given - performance NOT met., 1036F: Patient screened for tobacco use and identified as a non-user of tobacco..?Oswestry Score:?Oswestry Score??11.?? * Images: * Sign off status: Completed true * Provider:??Jayce Irby DO Date:??0 11/19/2023 History and Physical Notes * HPI (History of Present Illness) Category Sub-Category Detail Notes Category Not es Follow-up Questionnaire Average Pain Since Last Visit on Scale of 0 to 10: 7 This 68-year-old [id number]-[id number] female presents to the pain clinic today for follow-up visit and in anticipation of an injection. I last saw this patient on 06/03/2023, upon referral from Dr. Gaurang Demarco, her neurosurgical incident response consultant, and she underwent left C7/T1 facet joint injection. Patient initially indicated 70% relief of pain although upon further discussion, she describes little to no left-sided neck pain but interval development of right upper neck pain over the past 2 weeks, spontaneously. She describes persistent aching pain in the upper neck with associated morning headaches in the occipital region. Patient states that surgical options offered by Dr. Demarco would likely involve multiple level fusion which she hopes to avoid. She does not describe specific arm symptoms and rarely experiences paresthesias in the upper extremities. Patient has not been involved in physical therapy since approximately 2021 and seems disinterested in further physical therapy at this time. 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 She has history of coronary artery disease, undergoing previous two-vessel coronary artery bypass surgery in 2005. She also describes diabetes mellitus type 1. She is chronically on Plavix (clopidogrel). Patient indicates allergies to penicillin, sulfa antibiotics, and amoxicillin and hydromorphone. Imaging studies: CT cervical spine 11/05/2022 revealed significant facet arthropathy C2/3 and C7/T1, more pronounced on the left side. MRI cervical spine 12/02/2022 revealed reversal of normal lordotic curvature. Minimal anterior listhesis C7/T1. Degenerative disc changes C3/4 with minimal right-sided foraminal encroachment. Broad-based protrusion C6/7 with minimal right-sided foraminal encroachment. Number describing interferen ce w/enjoyment of life: 5 Relief from Injections/Medications: c - I am better, but not great yet. Improvement in functional ability: c- I can do more stuff, but the pain still stops me from doing some things. Pain Evaluation This patient encount er was conducted at the [facility]. The patient completed a questionnaire on the progress that has been made since the last office visit. This form was reviewed and the responses are included in this progress note. Onset of pain: years ago Location of pain: left neck, right nec k Duration of pain: constant, mostly in the morning Words that best describe the pain: achin g, sharp Aggravating/Associated factors of pain: coughing, sneezing, rolling in bed, driving Relieving factors of pain: ice Level of Pain on 1-10 Scale w/ 10 being most severe- TODAY 8 Level of Pain on 1-10 Scale w/ 10 being most severe- LEAST 6 Level of Pain on 1-10 Scale w/ 10 being most severe- WORST 9 Pain Level on 1-10 Scale w/ 10 being most severe- OVERALL 8 The Pain is Associated with: headache Examination Category Sub-Category Detail Notes Category Not es DGS: Follow-up exam elements General The patient appeared in no distress. The patient is alert and oriented to time, place, and person. Respiratory The lungs are grossl y clear to auscultation in all jacobsne Cardiovascular Regular rate and rhy thm with soft systolic murmur suspected right upper sternal border. No appreciable peripheral edema noted. Neck Grossly normal head position observed. She reports provocation of right- sided neck pain with extension and rotation to the right. Only mild tenderness over the cervical paraspinal and trapezius area noted, more prominent on the right side. Musculoskeletal Bilateral shoulder r all of motion remains normal without provocation of pain. Neurologic Patient is right-kapadia d dominant. She denies areas of persistent sensory loss in the upper extremities. Upper extremity proximal and distal motor strength appears symmetrical. DTRs trace to 1 bilateral biceps, triceps and brachioradialis. Spurling's negative bilaterally. She does not describe signs/symptoms of cervical myelopathy.
--- OUTSIDE RECORDS SUMMARY | 2024-08-09 01:54 | XMS_ITS | Patient Health Record ---
Author Organization [facility] [place] Address [address] [place] [address] Care Team Providers Care Thermostat Maker Name Role Phone Jayce Irby Unavailable [phone] ALLERGIES Allergen (clinical drug ingredient) Drug/Non Drug [...] Unknown Drug Allergy Activ e REASON FOR REFERRAL No Information MEDICATIONS Medication SIG (Take, Route, Frequency, Duration) Notes Start Date End Date Status Pantoprazole Sodium 40 MG 1 tablet Orally Once a day Active Vitamin B-12 1000 MCG 1 tablet Orally Once a day Active HYDROcodone-Acetaminop hen 5-325 MG 1 tablet as needed Orally q 6-8 hours PRN pain for 5 days 11/19/2023 Active Insulin Glargine-yfgn 100 UNIT/ML as directed Subcutaneous Active Insulin Aspart 100 UNIT/ML as directed Injection Active Nebivolol HCl 10 MG 1 tablet Orally Once a day Active Vitamin D2 [...] as needed Orally Once a day Active Pitavastatin Calcium 2 MG 1 tablet Orally Once a day Active HYDROcodone-Acetaminop hen 5-325 MG 1 tablet as needed Orally every 6-8 hrs PRN pain; please use sparingly for 5 days Aware that she takes ambien and cyclobenzaprine; aware of allergy to hydomorphone; she has taken this medication in past without difficulty 11/19/2023 Active Levothyroxine Sodium 200 MCG 1 tablet in the morning on an empty stomach Orally Once a day Active Norvasc 5 MG 1 tablet Orally Once a day Active Calcium 500 MG 1 tablet with meals Orally Twice a day Active Famotidine 20 MG 1 tablet at bedtime as needed Orally Once a day Active busPIRone HCl 7.5 MG 1 tablet Orally Twice a day Active Glucagon 1 MG/0.2ML as directed Subcutaneous Active cloNIDine 0.2 MG/24HR 1 patch to skin Transdermal Active Alendronate Sodium 70 MG 1 tablet 30 minutes before the first food, beverage or medicine of the day with plain water Orally Active Clopidogrel Bisulfate 75 MG 1 tablet Orally Once a day Active Diphenoxylate-Atropine 2.5-0.025 MG/5ML 5 mL as needed Orally Four times a day Active Aspirin 81 MG 1 tablet Orally Once a day Active Cyclobenzaprine HCl 10 MG 1 tablet at bedtime as needed Orally Once a day Active Amitriptyline HCl 10 MG 1 tablet at bedtime Orally Once a day Active PROBLEMS Problem Type ICD Code Onset Dates Problem Status W/U Status Risk SNOMED Code Notes Problem Neck pain (M54.2) Active confirmed Neck pain (92135320) Problem Cervical spondylosis (M47.812) Active confirmed Cervical spondylosis (334868090) VITAL SIGNS Heart Rate 76 /min 11/19/2023 Temperature 99 degrees Fahrenheit 11/19/2023 Respiratory Rate 18 /min 11/19/2023 Blood pressure diastolic 94 mm Hg 11/19/2023 Height 63 in 11/19/2023 Blood pressure systolic 162 mm Hg 11/19/2023 Weight 155 lbs 11/19/2023 BMI 27.45 kg/m2 11/19/2023 Encounters Encounter Location Date Provider Diagnosis [facility] [address] [place] [address] 11/19/2023 Jacye Ibry Cervical spondylosis M47.812 and Neck pain M54.2 [...] needed. Pain scores on numeric scale:Preinjec tion: 8/10Post injection: 310Clinical assessment completed only after patient fully recovered from propofol sedation. 11/19/2023 Neck pain (ICD-10 - M54.2) PLAN OF TREATMENT No Information MEDICATIONS ADMINISTERED Medication Instructions Date of Administration Dosage Notes LEFT C7/T1 Facet/MB Injection 06/03/2023 RIGHT C2/3 and C3/4 Facet Elvi int Injections 11/19/2023 MEDICAL (GENERAL) HISTORY Medical History History ICD Code high blood pressure angina thyroid disease headaches graves headaches diabetic Surgical History Surgery Date(Month/Year) open heart 2005 auto islet transplant 2013 pancrease and spleen 2013
--- OUTSIDE RECORDS SUMMARY | 2024-08-09 01:54 | XMS_ITS ---
Author Organization [facility] [place] Address [address] [address] Care Team Providers Care Lens Cementer Name Role Phone Jayce Irby [phone] REASON FOR VISIT ZULAY, MAYURI/ Dr. Gaurang Demarco/ MICHAEL and LEFT C7/T1 Facet Injection (s) Encounters Encounter Location Date Provider Diagnosis [facility] [place] [address] [place], [place] [address] 03/12/2023 Jayce Irby PLAN OF TREATMENT No Information Progress Notes * Steff MITTAL:1955 (69 yo F)Acc No.[id number]:03/12/2023 Progress Notes Patient:??Steff MITTAL Provider:??Jayce Irby DO :1955?Age:67 Y?Sex:Fe male Date:03/12/2023 Address:[address] [place] [address];[facility] Subjective: * Chief Complaints: * ?1. ZULAY, MAYURI/ Dr. Destin Demarco/ MICHAEL and LEFT C7/T1 Facet Injection (s). * Medical History:?? Objective: Assessment: Plan: * Treatment: * Images: * Sign off status: Pending * Provider:??Jayce Irby DO Date:??0 03/12/2023
== END 2024-08-02 07:20 | disposition home or self-care (01) ==
PROVIDERS: Physician Assistant; Emergency Provider Emergency Medicine; PCP Family Medicine
DX: E11.649 Type 2 diabetes mellitus with hypoglycemia without coma (principal); N39.0 Urinary tract infection, site not specified; E03.9 Hypothyroidism, unspecified; Z95.1 Presence of aortocoronary bypass graft; Z90.81 Acquired absence of spleen; Z79.4 Long term (current) use of insulin; Z79.899 Other long term (current) drug therapy; Z79.02 Long term (current) use of antithrombotics/antiplatelets; I45.10 Unspecified right bundle-branch block
CPT/HCPCS: 36415; 80048; 81001; 84443; 85025; 87077; 87086; 87186; 93005; 96365; 96366; 99284; A9270

== ENCOUNTER 2025-03-04 02:11 | Emergency (ER) | payer BC, OTHER, SELFPAY ==
[2025-03-04] VITALS (23 sets, daily range): BP systolic 138–176; BP diastolic 74–102; PULSE 60–99; RESP 11–21; TEMP 36.6–36.9; O2SAT 94–99
--- NOTE | ~2025-03-04 | CT_ITS ---
EXAMINATION: CT abdomen pelvis wo con DATE: 03/04/2025 03:34 INDICATION: Small bowel obstruction TECHNIQUE: Computed tomography (CT) of the abdomen and pelvis was performed without intravenous contr ast. Automated exposure control and iterative reconstruction technique were employed. The dose-length product was 758.26 mGy-cm. COMPARISON: 09/14/2018 FINDINGS: Lung bases are clear. Heart size normal. No pericardial or pleural effusion. Cholecystectomy clips at the gallbladder fossa. Postoperative changes likely proper procedure with absent spleen, nonvisualiz ed pancreas and likely resection of the duodenum and choledochojejunostomy. There is additional small bowel anastomosis in the central abdomen. Liver and bilateral adrenal glands are normal. Spleen is n ot visualized and likely surgically absent. Severe fatty atrophy of the pancreas. 10 mm nonobstructin g stone at a lower pole calyx of the left kidney. No stones at the right kidney or bilateral ureters. There is however unchanged mild right hydroureteronephrosis most prominent at the external pelvis wi thout evident obstructing stone or mass. Small bowel obstruction. The appendix is not visualized. No pericecal inflammatory change to suggest acute appendicitis. The uterus bilateral ovaries are not mariza ntified and have likely been surgically resected. Bladder is normal. No free intraperitoneal gas or f luid. No pathologically enlarged abdominal or pelvic lymphadenopathy. Moderate to severe lower lumbar spondylosis. IMPRESSION: 1. Postoperative change of prior Whipple procedure. No acute intra-abdominal/pelvic process. 2. Nonobstructing 10 mm left renal stone. 3. Unchanged right ureteropelvic junction obstruction with mild right hydronephrosis but without evid ent obstructing stone or mass. Reviewed, dictated and finalized at location A. IMPRESSION: 1. Postoperative change of prior Whipple procedure. No acute intra-abdominal/pe lvic process. 2. Nonobstructing 10 mm left renal stone. 3. Unchanged right ureteropelvic junction obstruction with mild right hydroneph rosis but without evident obstructing stone or mass.
--- OUTSIDE RECORDS SUMMARY | 2025-03-04 02:13 | XMS_ITS | Patient Health Record ---
Author Organization [facility] [place] Address [address] [address] Care Team Providers Care Supervisor White Sugar Name Role Phone Jayce Irby Unavailable [phone] Allergies Allergen (clinical drug ingredient) Drug/Non Drug Allergy documented on EMR Reaction Allergy Type Onset Date Status hydromorphone Dilaudid Unknown Drug Allergy Act jagdeep Compazine Unknown Drug Allergy Active Penicillin Unknown Drug Allergy Active Substance with sulfonamide structure and antibacterial mechanism of action (substance) Sulfa Antibiotics Unknown Drug Allergy Active vancomycin Vancomycin Unknown Drug Allergy Activ e Reason For Referral No Information Medications Medication SIG (Take, Route, Frequency, Duration) Notes Start Date End Date Status Zepbound 2.5 MG/0.5ML 0.5 mL Subcutaneous Active Vitamin D2 50 MCG (2000 UT) 1 tablet Orally Once a day Active Vitamin D3 125 MCG (5000 UT) 1 tablet Orally Once a day Active Ranolazine ER 1000 MG 1 tablet Orally Twice a day Active Pitavastatin Calcium 2 MG 1 tablet Orally Once a day Active Semglee (yfgn) 100 UNIT/ML as directed Subcutaneous Active Multivitamin - 1 tablet Orally Once a day Active Ondansetron 8 MG 1 tablet on the tongue and allow to dissolve as needed Orally Once a day Active Pregabalin 100 MG 1 capsule Orally Once a day Active Vitamin B-12 1000 MCG 1 tablet Orally Once a day Active Clopidogrel Bisulfate 75 MG 1 tablet Orally Once a day Active Pantoprazole Sodium 40 MG 1 tablet Orally Once a day Active Insulin Glargine-yfgn 100 UNIT/ML as directed Subcutaneous Active Nebivolol HCl 10 MG 1 tablet Orally Once a day Active Insulin Aspart 100 UNIT/ML as directed Injection Active Famotidine 20 MG 1 tablet at bedtime as needed Orally Once a day Active Alendronate Sodium 70 MG 1 tablet 30 minutes before the first food, beverage or medicine of the day with plain water Orally Active Norvasc 5 MG 1 tablet Orally Once a day Active Amitriptyline HCl 10 MG 1 tablet at bedtime Orally Once a day Active HYDROcodone-Acetaminop hen 5-325 MG 1 tablet as needed Orally every 6-8 hrs PRN pain; please use sparingly; Duration: 5 days Aware that she takes ambien and cyclobenzaprine; aware of allergy to hydomorphone; she has taken this medication in past without difficulty 03/01/2025 Active Cyclobenzaprine HCl 10 MG 1 tablet at bedtime as needed Orally Once a day Active Diphenoxylate-Atropine 2.5-0.025 MG/5ML 5 mL as needed Orally Four times a day Active HYDROcodone-Acetaminop hen 5-325 MG 1 tablet as needed Orally q 6-8 hours PRN pain; Duration: 5 days 11/19/2023 Active cloNIDine 0.2 MG/24HR 1 patch to skin Transdermal Active Levothyroxine Sodium 200 MCG 1 tablet in the morning on an empty stomach Orally Once a day Active Nitroglycerin 0.4 MG 1 tablet under the tongue and allow to dissolve as needed. Take every 5 minutes up to 3 times if chest pain persists Sublingual Three times a day Active hydrOXYzine HCl 25 MG 1 tablet as needed Orally Once a day Active Levothyroxine Sodium 300 MCG 1 tablet in the morning on an empty stomach Orally Once a day Active HumaLOG KwikPen Acti ve Calcium 500 MG 1 tablet with meals Orally Twice a day Active Hyoscyamine Sulfate 0.125 MG 1 tablet as needed Orally every 8 hrs Active Glucagon 1 MG/0.2ML as directed Subcutaneous Active Baqsimi One Pack 3 MG/DOSE as directed Nasally Active Aspirin 81 MG 1 tablet Orally Once a day Active Creon [id number] UNIT as directed Orally Active busPIRone HCl 7.5 MG 1 tablet Orally Twice a day Active Problems Problem Type SNOMED Code ICD Code Onset Dates Problem Status W/U Status Risk Notes Problem Neck pain (71516532) Neck pain (M54.2) Active confirmed Problem Cervical spondylosis (478531613) Cervical spondylosis (M47.812) Active confirmed Problem Cervicogenic headache (878686442) Cervicogenic headache (R51.9) Active confirmed Vital Signs Heart Rate 71 /min 03/01/2025 Temperature 97.1 degrees Fahrenheit 03/01/2025 Respiratory Rate 18 /min 03/01/2025 Blood pressure diastolic 70 mm Hg 03/01/2025 Height 63 in 03/01/2025 Blood pressure systolic 109 mm Hg 03/01/2025 Weight 165 lbs 03/01/2025 BMI 29.23 kg/m2 03/01/2025 Encounters Encounter Location Date Provider Diagnosis [facility] [address] [place] [address] 02/21/2025 Jayce Irby Neck pain M54.2 ; Cervical spondylosis M47.812 and Cervicogenic headache R51.9 [facility] [address] [place] [address] 03/01/2025 Jayce Ibry Cervical spondylosis M47.812 and Cervicogenic headache R51.9 Assessments Encounter Date Diagnosis (ICD Code) Assessment Notes Treatment Notes Treatment Clinical Notes Section Notes 02/21/2025 Neck pain (ICD-10 - M54.2) 02/21/2025 Cervical spondylosis (ICD-10 - M47.812) Impression1. Chronic and recurrent nonradicular right-sided neck pain associated with right C2/3 and C3/4 facet arthropathy (cervical spondylosis).2. Recent description of cervicogenic headache extending right occipital region.3. Multiple level cervical degenerative disc and spondylosis changes.Plan1. Obtain cervical spine x-rays with flexion and extension views today. Results were received by the time this note was prepared and referenced under HPI.2. Patient to be scheduled for right C2/3 and C3/4 facet joint/medial branch injections with fluoroscopy. She also request sedation (propofol).3. Patient will need to get permission from prescribing physician to hold Plavix for 7 days prior to procedure. She may remain on aspirin.4. If she achieves 80% reduction of pain, on (2) occasions, consider future cervical facet RFA. She has already undergone this procedure 11/19/2023 with excellent pain relief and duration exceeding 12 months.5. Patient should maintain some form of daily home exercise program for maintenance of cervical strength and range of motion. At some point in the future, particularly if we go forward with cervical facet RFA, a formal course of physical therapy will be strongly recommended. 03/01/2025 Cervical spondylosis (ICD-10 - M47.812) Impression1. Chronic and recurrent nonradicular right-sided neck pain attributed to right C2/3 and C3/4 facet arthropathy (cervical spondylosis).2. Component cervicogenic headaches, right occipital region.3. Multiple level cervical degenerative disc and spondylosis changes.4. Patient previously achieved 90% reduction of pain for 1 year following right C2/3 and C3/4 facet joint/medial branch injections of 11/19/2023.Plan1. Proceed with right C2/3 and C3/4 facet joint/medial branch injection with fluoroscopy. She does elect to receive IV sedation. Patient is aware that exogenously administered corticosteroids will likely result in transient elevation of blood sugar in diabetics. She has been off Plavix for 7 days.2. Patient was instructed to restart Plavix (clopidogrel) at next usual dosage time.3. Prescription hydrocodone/acetam inophen 5/325, 15 quantity, 1 tablet every 6-8 hours as needed for postprocedural pain. Patient was reminded that hydrocodone represents a schedule II narcotic with potential for addiction, abuse and diversion. Prescription was sent electronically to designated pharmacy.4. If the patient again achieves 1 year or greater relief, injections may be repeated. If however she achieves 80% reduction of pain but of much shorter duration of relief, less than 6+ months, consider future cervical facet RFA.5. She was encouraged to maintain some form of daily home exercise program for maintenance of cervical strength and range of motion.6. Otherwise, return to clinic as needed. 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
--- OUTSIDE RECORDS SUMMARY | 2025-03-04 02:13 | XMS_ITS | Patient Health Record ---
Author Organization [facility] Address [address] [place], [place] [address] Care Team Providers Care Bulk Cooler Installer Name Role Phone MCGUIREJHONY SIM Unavailable [phone] Ramirez Wheeler Unavailable Unavailable Reason For Referral No Information Plan Of Treatment No Information Insurance Providers Payer Name Payer Address Payer Phone Subscriber Number Group Number Insured Name Patient Relationship to Insured Coverage Start Date Coverage End Date [employer] [address] [place] [address] [id number] NONA MITTAL Self - patient is the insured
--- OUTSIDE RECORDS SUMMARY | 2025-03-04 02:14 | XMS_ITS | Encounter Summary ---
Author Organization [facility] Facility Care Team Providers Care Canoe Inspector Final Name Role Phone Ramirez Wheeler MD Primary Care Provider [phone] Guillermina Kingston RN Unavailable [phone] Guillermina Kingston RN Unavailable [phone] Guillermina Kingston RN Unavailable [phone] Laine Ortiz MD Unavailable [phone] Jani Howard MD Unavailable [phone] Francie Waldron MD Unavailable [phone] Ramirez Rowe DPM Unavailable [phone] Carmina Dominguez [facility] Unavailable Gia Solano Primary Care Provider Jennifer Henderson RN Unavailable [phone] Laine Ortiz MD Primary Care Provider [phone] Suleman Escalante MD Primary Care Provider [phone] Encounter Details Date Type Department Care Team (Latest Contact Info) Description 11/26/2016 Orders Only [facility] Provider, MD Diana [address] [place] [address] Social History Tobacco Use Types Packs/Day Years Used Date Smoking Tobacco: Never Comments Unknown Sex and Gender Information Value Date Recorded Sex Assigned at Not on file Legal Sex Female 2:48 AM FRONT FACER Gender Identity Not on file Sexual Orientation Not on file documented as of this encounter Plan of Treatment Not on file documented as of this encounter Procedures Procedure Name Priority Date/Time Associated Diagnosis Comments CARDIOLOGY REPORT 12/01/2016 12: 00 AM CDT documented in this encounter Results * CARDIOLOGY REPORT (12/01/2016 12:00 AM CDT) Anatomical Region Laterality Modality Other Narrative 12/01/2016 12:00 AM CDT Ordered by an unspecified provider. us Historical Provider [facility] STEVE JONES Final Result documented in this encounter Visit Diagnoses Not on filedocumented in this encounter Additional Health Concerns Infection Onset Date Last Indicated Resolved Time C. difficile Comment:Treatment completed and symptoms resolved. 06/13/2012 06/12/2012 03/18/2022 9:44 AM C DT VRE Comment:3 NEG STOOL CULTURES 06/13/2012 06/12/2012 03/19/2021 5:00 AM CDT COVID: Suspected 05/21/2021 05/21/2021 06/04/2021 3:05 AM CDT documented as of this encounter Care Teams Canoe Inspector Final Relationship Specialty Start Date End Date Ramirez Wheeler MD PCP - General Family Medicine 05/11/18 05/03/22 Gia Solano PA [address] [place] [address] [address] [place] [address] PCP - General Family Medicine 05/04/22 11/04/22 Laine Ortiz MD [address] [place] [address] [address] [place] [address] PCP - General Cardiology 03/02/23 06/10/23 Suleman Escalante MD [address] [place] [address] [address] [place], [place] [address] PCP - General Family Medicine 06/11/23 09/23/23 Guillermina Kingston, SILVINO Service Desk Specialist 11/23/18 12/12/18 Guillermina Kingston RN Service Desk Specialist 12/13/18 12/13/18 Guillermina Kingston, SILIVNO Service Desk Specialist 12/13/18 02/08/19 Laine Ortiz MD [address] [place] [address] [address] [place], [place] [address] Referring Physician Cardiology 06/04/21 Jani Howard MD [facility] [address] [address] Consulting Physician Pulmonary Disease 06/04/21 Francie Waldron MD [address] [place] [address] [address] [place] [address] Consulting Physician Gastroenterology 06/04/21 Ramirez Rowe, DPM [address] [place] [address] [facility] [address] [place] [address] Consulting Physician Podiatry 06/04/21 Carmina Dominguez, Matthew [address] [facility] [facility] [address] [place] [address] Pharmacist Pharmacy 02/11/22 02/22/22 Jennifer Henderson RN [address] [address] Service Desk Specialist 02/15/23 03/01/23 documented as of this encounter
--- OUTSIDE RECORDS SUMMARY | 2025-03-04 02:14 | XMS_ITS | Encounter Summary ---
Author Organization [facility] Address [address] [place] [address] Care Team Providers Care Chief Maintenance Supervisor Name Role Phone Ramirez Wheeler MD Primary Care Provider [phone] Laine Ortiz MD Unavailable [phone] Suleman Escalante MD Primary Care Provider [phone] None, Provider Primary Care Provider [facility] Ramirez Wheeler MD Primary Care Provider [phone] Kike Avalos MD Primary Care Provider [phone] Ramirez Wheeler MD Primary Care Provider [phone] Encounter Details Date Type Department Care Team (Latest Contact Info) Description 02/08/2018 Abstract [facility] Misha Gonzalez MD Social History Tobacco Use Types Packs/Day Years Used Date Smoking Tobacco: Never Smokeless Tobacco: Never Alcohol Use Standard Drinks/Week Comments No 0 (1 standard drink = 0.6 oz pur e alcohol) Comments Unknown Sex and Gender Information Value Date Recorded Sex Assigned at Female 02/06/2025 12:55 PM CDT Legal Sex Female 9:42 PM CDT Gender Identity Not on file Sexual Orientation Not on file 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 [address] [place] [address] documented as of this encounter Visit Diagnoses Not on filedocumented in this encounter Care Teams Chief Maintenance Supervisor Relationship Specialty Start Date End Date Ramirez Wheeler MD PCP - General FAMILY PRACTICE 01/31/16 08/01/22 Suleman Escalante MD [address] [place] [address] PCP - General FAMILY PRACTICE 08/02/22 05/30/23 Jenn Naranjo MD PCP - General [facility] PHYSICIAN SPECIALTY 05/31/23 06/27/23 Ramirez Wheeler MD PCP - General FAMILY PRACTICE 06/28/23 03/01/24 Kike Avalos MD [address] [place] [address] PCP - General INTERNAL MEDICINE 03/02/24 04/01/24 Ramirez Wheeler MD [address] [place] [address] PCP - General FAMILY PRACTICE 04/02/24 Laine Ortiz MD [facility]. [address] [place] [address] Jhony Supervisor Electronics Assembly CARDIOVASCULAR DISEASE 01/31/16 documented as of this encounter
--- OUTSIDE RECORDS SUMMARY | 2025-03-04 02:14 | XMS_ITS | Encounter Summary ---
Author Organization [facility] Facility Care Team Providers Care Internal Medicine Physician Name Role Phone Ramirez Wheeler MD Primary Care Provider [phone] Guillermina Kingston RN Unavailable [phone] Guillermina Kignston RN Unavailable [phone] Guillermina Kingston RN Unavailable [phone] Laine Ortiz MD Unavailable [phone] Jani Howard MD Unavailable [phone] Francie Waldron MD Unavailable [phone] Ramirez Rowe DPM Unavailable [phone] Carmina Dominguez [facility] Unavailable Gia Solano Primary Care Provider Jennifer Henderson RN Unavailable [phone] Laine Ortiz MD Primary Care Provider [phone] Suleman Escalante MD Primary Care Provider [phone] Encounter Details Date Type Department Care Team (Latest Contact Info) Description 11/19/2016 Orders Only [facility]IN[facility]V Provider, MD Diana [address] [place] [address] Social History Tobacco Use Types Packs/Day Years Used Date Smoking Tobacco: Never Comments Unknown Sex and Gender Information Value Date Recorded Sex Assigned at Not on file Legal Sex Female 2:48 AM EMERGENCY VETERINARY ASSISTANT Gender Identity Not on file Sexual Orientation Not on file documented as of this encounter Plan of Treatment Not on file documented as of this encounter Procedures Procedure Name Priority Date/Time Associated Diagnosis Comments COLONOSCOPY - SCAN 11/19/2016 12 :00 AM CDT documented in this encounter Results * COLONOSCOPY - SCAN (11/19/2016 12:00 AM CDT) Narrative 11/19/2016 12:00 AM CDT Ordered by an unspecified provider. us Historical Provider Final Res ult documented in this encounter Visit Diagnoses Not on filedocumented in this encounter Additional Health Concerns Infection Onset Date Last Indicated Resolved Time C. difficile Comment:Treatment completed and symptoms resolved. 06/13/2012 06/12/2012 03/18/2022 9:44 AM C DT VRE Comment:3 NEG STOOL CULTURES 06/13/2012 06/12/2012 03/19/2021 5:00 AM CDT COVID: Suspected 05/21/2021 05/21/2021 06/04/2021 3:05 AM CDT documented as of this encounter Care Teams Internal Medicine Physician Relationship Specialty Start Date End Date Ramirez Wheeler MD PCP - General Family Medicine 05/11/18 05/03/22 Gia Solano PA [address] [place] [address] [address] [place] [address] PCP - General Family Medicine 05/04/22 11/04/22 Laine Ortiz MD [address] [place] [address] [address] [place] [address] PCP - General Cardiology 03/02/23 06/10/23 Suleman Escalante MD [address] [place] [address] [address] [place] [address] PCP - General Family Medicine 06/11/23 09/23/23 Guillermina Kingston, SILVINO Electrolysist 11/23/18 12/12/18 Guillermina Kingston, SILVINO Electrolysist 12/13/18 12/13/18 Guillermina Kingston, SILVINO Electrolysist 12/13/18 02/08/19 Laine Ortiz MD [address] [place] [address] Referring Physician Cardiology 06/04/21 Jani Howard MD [facility] [address] [address] Consulting Physician Pulmonary Disease 06/04/21 Francie Waldron MD [address] [place] [address] [address] Consulting Physician Gastroenterology 06/04/21 Ramirez Rowe, MAURICIO [address] [place] [address] [address] Consulting Physician Podiatry 06/04/21 Carmina Dominguez, Matthew [address] [place] [address] [address] [place] [address] Pharmacist Pharmacy 02/11/22 02/22/22 Jennifer Henderson RN [address] [facility] [place] [address] Electrolysist 02/15/23 03/01/23 documented as of this encounter
--- OUTSIDE RECORDS SUMMARY | 2025-03-04 02:14 | XMS_ITS | Encounter Summary ---
Author Organization [facility] Facility Care Team Providers Care Copy Camera Operator Name Role Phone Ramirez Wheeler MD Primary Care Provider [phone] Guillermina Kingston RN Unavailable [phone] Guillermina Kingston RN Unavailable [phone] Guillermina Kingston RN Unavailable [phone] Laine Ortiz MD Unavailable [phone] Jani Howard MD Unavailable [phone] Francie Waldron MD Unavailable [phone] Ramirez Rowe DPM Unavailable [phone] Carmina Dominguez [facility] Unavailable Gia Solnao Primary Care Provider Jennifer Henderson RN Unavailable [phone] Laine Ortiz MD Primary Care Provider [phone] Suleman Escalante MD Primary Care Provider [phone] Encounter Details Date Type Department Care Team (Latest Contact Info) Description 11/25/2016 Orders Only [facility] Provider, MD Diana [address] [place] [address] Social History Tobacco Use Types Packs/Day Years Used Date Smoking Tobacco: Never Comments Unknown Sex and Gender Information Value Date Recorded Sex Assigned at Not on file 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 Gender Identity Not on file Sexual Orientation Not on file documented as of this encounter Plan of Treatment Not on file documented as of this encounter Procedures Procedure Name Priority Date/Time Associated Diagnosis Comments SCAN - LABS 11/27/2016 12:00 AM CDT documented in this encounter Results * SCAN - LABS (11/27/2016 12:00 AM CDT) Narrative 11/27/2016 12:00 AM CDT Ordered by an unspecified [...] documented as of this encounter Care Teams Copy Camera Operator Relationship Specialty Start Date End Date Ramirez Wheeler MD PCP - General Family Medicine 05/11/18 05/03/22 Gia Solano PA [address] [place] [address] [address] [place] [address] PCP - General Family Medicine 05/04/22 11/04/22 Laine Ortiz MD [address] [place] [address] [address] [place] [address] PCP - General Cardiology 03/02/23 06/10/23 Suleman Escalante MD [address] [place] [address] [address] [place] [address] PCP - General Family Medicine 06/11/23 09/23/23 Guillermina Kingston, [employer] 11/23/18 12/12/18 Guillermina Kingston, [employer] 12/13/18 12/13/18 Guillermina Kingston, [employer] 12/13/18 02/08/19 Laine Ortiz MD [address] [place] [address] Referring Physician Cardiology 06/04/21 Jani Howard MD [facility] [address] [address] Consulting Physician Pulmonary Disease 06/04/21 Francie Waldron MD [address] [place] [address] [address] Consulting Physician Gastroenterology 06/04/21 Ramirez Rowe, MAURICIO [address] [place] [address] [address] Consulting Physician Podiatry 06/04/21 Carmina Dominguez, Matthew [address] [place] [address] [address] [place] [address] Pharmacist Pharmacy 02/11/22 02/22/22 Jennifer Henderson RN [address] [place] [address] [employer] Professional 02/15/23 03/01/23 documented as of this encounter
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
--- OUTSIDE RECORDS SUMMARY | 2025-03-04 02:14 | XMS_ITS | Clinical Summary ---
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 Jenny Benjamin. Metoclopramide is a home medication. 09-17-18 Loree, PharmD. Makes her very hyper hyperactivity Metoclopramide ok per Dr. Jenny Benjamin. Metoclopramide is a home medication. 09-17-18 Adelita Ralph. Metoclopramide ok per Dr. Jenny Benjamin. Metoclopramide is a home medication. 09-17-18 Loree, PharmD. Makes her very hyper Niacin Rash Medium 10/16/2016 Penicillins Hives Medium 10/21/2018 Hives Hives Prochlorperazine Other (See comments),Unknown Low 10/21/2018 Other reaction(s): HYPERACTIVITY HYPERACTIVITY Okay to give with benedryl as patient has tolerated in the past per Yao Borja MD. 09-17-2018 Angie Gallagher PharmZena Okay to give with benedryl as patient has tolerated in the past per Yao Borja MD. 09-17-2018 Angie Gallagher PharmD Other reaction(s): HYPERACTIVITY HYPERACTIVITY Other reaction(s): HYPERACTIVITY HYPERACTIVITY Propoxyphene Unknown,Hives Medium 10/21/2018 Hives Propoxyphene-Acetaminophe n Rash Medium 06/19/2014 Rosuvastatin Muscle pain Medium 10/16/2016 Simvastatin Muscle pain,Headache Medium 10/16/2016 Muscle cramps Muscle cramps Sufentanil Hives Medium 06/19/2014 Sulfa (Sulfonamide Antibiotics) Hives Medium 10/16/2016 Unclassified Drug Rash Medium 10/16/2016 Cannot take due to transplant Vancomycin Hives Medium 09/17/2018 Medications OMNIPOD DASH INSULIN POD cartridge CHANGE OMNIPOD POD EVERY 2 TO 3 DAYS UTD 0 05/24/20 19 Active cyanocobalamin (Vitamin B-12) 1,000 mcg/mL injectionIndicatio ns:B12 deficiency Inject 1 mL (1,000 mcg total) into the muscle as instructed every 30 (thirty) days 3 mL 1 05/14/20 20 Active nitroglycerin (NITROSTAT) 0.[address] 1 tablet (0.4 mg total) under the tongue every 5 (five) minutes as needed for chest pain 90 tablet 3 05/14/20 20 Active syringe with needle (BD Luer-Xiang Syringe) 3 mL 25 gauge x 1 syringeIndications :B12 deficiency 1 Syringe as directed 6 times daily 600 Syringe 1 05/14/20 20 Active pen needle, diabetic 32 gauge x 5/32 needle 02/29/20 19 Active lancets misc Test blood sugar 3 times daily 450 each 3 05/06/20 21 Active aspirin 325 mg enteric coated tablet TAKE 1 TABLET BY MOUTH EVERY DAY 90 tablet 3 08/04/19 22 Active gabapentin (NEURONTIN) 300 mg capsuleIndications :Tendinopathy of right rotator cuff TAKE 1 CAPSULE BY MOUTH TWICE A DAY 180 capsule 1 12/23/19 22 Active lancing device with lancets kit 3 (three) times a day 09/27/19 Active ranolazine ER (RANEXA) 1,000 mg 12 hr tabletIndications: 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 Take 1 tablet (1,000 mg total) by mouth 2 (two) times a day 180 tablet 3 01/01/20 Active insulin aspart (NovoLOG) 100 unit/mL (3 mL) pen for injectionIndicatio ns:Type 2 diabetes mellitus with diabetic autonomic neuropathy, with long-term current use of insulin ([facility]) INJECT SUBCUTANEOUSLY DIRECTED PER SLIDING SCALE, DO NOT EXCEED 45 UNITS DAILY 9 mL 1 01/01/20 Active Additional Information Patient taking differently: 0-5 Units subcutaneous 3 times daily with meals, INJECT SUBCUTANEOUSLY DIRECTED PER SLIDING SCALE, DO NOT EXCEED 45 UNITS [id number] 1 [id number] 2 -394 3 [id number] 4 [id number] 5 units, Reported on 03/21/[address] (PROTONIX) 40 mg EC tabletIndications: Gastroesophageal reflux disease without esophagitis Take 1 tablet (40 mg total) by mouth 2 (two) times a day 60 tablet 2 01/01/20 Active pancrelipase (Creon) 36,000 units of lipase capsuleIndications :exocrine pancreatic insufficiency Take 4 capsules by mouth 4 (four) times a day 1440 capsule 3 01/01/20 Active diphenoxylate-atro pine (LOMOTIL) 2.5-0.025 mg per tablet TAKE 1 TABLET BY MOUTH FOUR TIMES A DAY NEEDED 01/11/20 Active BD Veo Insulin Syringe UF 0.3 mL 31 gauge x 15/64 syringeIndications :Type 2 diabetes mellitus with diabetic autonomic neuropathy, with long-term current use of insulin (HCC) 6 times daily 600 each 2 03/10/20 22 Active ergocalciferol (VITAMIN D) 50,000 unit capsuleIndications :Vitamin D deficiency TAKE 1 CAPSULE BY MOUTH ONE TIME PER WEEK 6 capsule 1 03/19/20 22 Active lancing device with lancets (Accu-Chek FastClix Lancing Dev) kitIndications:Typ e 2 diabetes mellitus with diabetic autonomic neuropathy, with long-term current use of insulin (HCC) 1 each 6 (six) times a day 1 kit 11 03/25/20 22 Active levothyroxine (SYNTHROID) 75 mcg tabletIndications: Postprocedural hypothyroidism TAKE 1 TABLET (75 MCG TOTAL) BY MOUTH SHRIMP PACKER BEFORE BREAKFAST 90 tablet 03/27/20 22 Active levothyroxine (SYNTHROID) 200 mcg tabletIndications: Postprocedural hypothyroidism TAKE 1 TABLET (200 MCG TOTAL) BY MOUTH SHRIMP PACKER BEFORE BREAKFAST 90 tablet 03/27/20 22 Active sucralfate (CARAFATE) 1 gram tabletIndications: Heartburn,Preventi on of Stress Ulcer Take 1 tablet (1 g total) by mouth 4 (four) times a day (with meals and nightly) 120 tablet 3 03/29/20 Active amLODIPine (NORVASC) 10 mg tabletIndications: Essential (primary) hypertension Take 1 tablet (10 mg total) by mouth daily 90 tablet 2 07/20/20 Active alendronate (FOSAMAX) 70 mg tabletIndications: Other osteoporosis without current pathological fracture Take 1 tablet (70 mg total) by mouth every 7 days Take in the morning with a full glass of water, on an empty stomach, and do not take anything else by mouth or lie down for the next 30 min. 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 Take 1 tablet (75 mg total) by mouth daily 90 tablet 1 07/20/20 Active busPIRone (BUSPAR) 7.5 mg tabletIndications: Situational anxiety Take 1 tablet (7.5 mg total) by mouth 3 (three) times a day 270 tablet 1 07/20/20 Active famotidine (PEPCID) 20 mg tabletIndications: Gastroesophageal reflux disease without esophagitis Take 2 tablets (40 mg total) by mouth 2 (two) times a day 360 tablet 3 07/20/20 22 Active nebivoloL (Bystolic) 10 mg tabletIndications: Essential (primary) hypertension Take 1 tablet (10 mg total) by mouth daily 90 tablet 2 07/20/20 22 Active pitavastatin calcium (Livalo) 2 mg tabletIndications: Mixed hyperlipidemia Take 1 tablet (2 mg total) by mouth daily 90 tablet 3 07/20/20 22 Active traMADoL (ULTRAM) 50 mg tabletIndications: Cracked root of tooth Take 1-2 tablets (50-100 mg total) by mouth every 8 (eight) hours as needed for pain for up to 4 days 20 tablet 10/03/19 23 Active hydrOXYzine (ATARAX) 25 mg tabletIndications: Primary insomnia Take 2 tablets (50 mg total) by mouth nightly 60 tablet 2 10/03/19 23 Active LANTUS 100 unit/mL vial for injectionIndicatio ns:Type 2 diabetes mellitus with diabetic autonomic neuropathy, with long-term current use of insulin (HCC) INJECT 13 UNITS UNDER THE SKIN DAILY 13 UNITS UNDER THE SKIN NIGHTLY 10 mL 2 10/17/19 23 Active HYDROcodone-acetam inophen (NORCO) 5-325 mg per tabletIndications: Pain Take 1 tablet by mouth every 6 (six) hours as needed for pain 10 tablet 11/06/19 23 Active cyclobenzaprine (FLEXERIL) 10 mg tablet Take 1 tablet (10 mg total) by mouth 2 (two) times a day as needed for muscle spasms 20 tablet 11/06/19 23 Active zolpidem (AMBIEN) 5 mg tablet TAKE 1 TABLET BY MOUTH EVERY DAY AT BEDTIME NEEDED FOR SLEEP 30 tablet 3 04/12/20 23 Active Active Problems Problem Noted Date Diagnosed Date Moderate malnutrition 03/29/2022 Abdominal pain 03/28/2022 SBO (small bowel obstruction) 03/17/2022 Tendinopathy of right rotator cuff 06/06/2021 Asplenia 06/04/2021 B12 deficiency 02/09/2019 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 Her DME is adapt. Assessment & Plan (05/06/2021 1:29 PM CDT): Patient continue to wear her CPAP at 12 cm water pressure while sleeping. Her CPAP as part of the [employer] recall. The patient has registered her machine but would like me to order her a new CPAP through [facility]. I have sent an order over. Assessment & Plan (09/18/2018 9:20 AM GUEST SERVICES DIRECTOR): -Cont CPAP 14 Assessment & Plan (09/17/2018 5:15 AM GUEST SERVICES DIRECTOR): -Cont CPAP 14 History of pancreatectomy 09/17/2018 Assessment & Plan (09/18/2018 9:19 AM GUEST SERVICES DIRECTOR): -s/p auto islet cell transplantation -Cont pancreatic enzymes, insulin as noted above Assessment & Plan (09/17/2018 5:22 AM GUEST SERVICES DIRECTOR): -s/p auto islet cell transplantation -Cont pancreatic enzymes, insulin as noted above Situational anxiety 09/17/2018 Assessment & Plan (09/18/2018 9:18 AM GUEST SERVICES DIRECTOR): -Cont home Effexor, Ativan PRN Assessment & Plan (09/17/2018 5:25 AM GUEST SERVICES DIRECTOR): -Cont home Effexor, Ativan PRN Incomplete tear of right rotator cuff 09/07/2018 Other osteoporosis without current pathological fracture 09/07/2018 Peripheral polyneuropathy 05/16/2018 Gastroparesis 02/08/2018 Type 2 diabetes mellitus wit h diabetic autonomic neuropathy, with long-term current use of insulin ([facility]) 02/08/2018 Hyperlipidemia, mixed 05/25/2017 Irritable bowel syndrome with diarrhea 7 Psychophysiologic insomnia 05/25/2017 Assessment & Plan (06/22/2022 3:19 PM GUEST SERVICES DIRECTOR): I have sent an order over for Ambien 5 mg. Vitamin D deficiency 05/25/2017 PAUL (generalized anxiety disorder) 01/22/2017 Gastroesophageal reflux disease without esophagi tis 01/22/2017 Osteoarthritis of spine with radiculopathy, cerv ical region 10/02/2016 Bipolar disorder 01/20/2016 Seizure disorder (CMS/HCC) 01/20/2016 Assessment & Plan (06/22/2022 3:20 PM GUEST SERVICES DIRECTOR): The patient has not had a seizure since being on CPAP. Assessment & Plan (05/06/2021 1:30 PM CDT): The patient has not had a seizure since being on CPAP. 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 12/07/2019 05/14/2020 Overview (12/07/2019): Last Assessment & Plan: -s/p CABG Continue ASA/Plavix/statin Pure hypercholesterolemia 06/15/2019 Essential hypertension 06/15/201905/14 Anemia 02/09/2019 05/14/2020 Pancreatic disease 02/09/2019 0 Thyroid dysfunction 02/09/2019 05/14/20 20 Disorder of pancreas 02/09/2019 020 Abdominal pain 09/17/2018 05/14/2020 Assessment & Plan (09/18/2018 9:18 AM GUEST SERVICES DIRECTOR): -Likely due to UTI and mild dehydration in setting of finicky bowel; improved with treatment of UTI, CT A/P from [facility] grossly negative continue PPI BID -Treatment of UTI as noted below -Pain control with home Tramadol. Avoid IV opiates if possible. Assessment & Plan (09/17/2018 5:29 AM GUEST SERVICES DIRECTOR): -Pt presenting with 1 week of mid to epigastric abdominal pain, N/V, and diarrhea. Etiology not entirely clear but includes viral gastroenteritis, gastritis/PUD/anastomatic ulcer, UTI. Pt has hx of SBO but unlikely bowel obstruction as she reports having significant diarrhea. Cannot r/o opiate withdrawal as she reports she was recently taken of Percocet, however duration of symptoms is not entirely c/w withdrawal. -Check abdominal plain films given worsening of symptoms. Obtain recent CT A/P from [facility] although may need repeat CT. -IV PPI BID -Check Cdiff, stool cx -Cont home Zofran PRN and Reglan 10 QID, however Reglan should not be used nursing home -Treatment of UTI as noted below -Pain control with home Tramadol. Avoid IV opiates if possible. -CLD and advance diet as tolerated -Consider GI c/s if symptoms do not improve Diarrhea 09/17/2018 05/14/2020 Assessment & Plan (09/17/2018 5:18 AM GUEST SERVICES DIRECTOR): -Pt worsening of chronic diarrhea. Reports compliance with pancreatic enzymes. -Check Cdiff, stool cx -Cont pancreatic enzymes CAD (coronary artery disease) 09/17/2018 05/14/2020 Assessment & Plan (09/18/2018 9:17 AM GUEST SERVICES DIRECTOR): -s/p CABG Continue ASA/Plavix/statin Assessment & Plan (09/17/2018 5:15 AM GUEST SERVICES DIRECTOR): -s/p CABG -Decrease ASA from 325 to 81 given GI symptoms, hold Plavix in case GI procedure needed (no cardiac stents present per patient) Diabetes 09/17/2018 05/14/2020 Assessment & Plan (09/18/2018 9:19 AM GUEST SERVICES DIRECTOR): -Post-pancreatectomy DM s/p auto islet cell transplant at [place] 2012 -Check A1c -Pt reports hypoglycemia despite holding insulin x 4 days. Home insulin regimen Lantus 7 U QHS. -Accuchecks + extra LDSSI resume home regimen when eating well; monitor glucose; PCP Wednesday, GI appt Assessment & Plan (09/17/2018 5:21 AM GUEST SERVICES DIRECTOR): -Post-pancreatectomy DM s/p auto islet cell transplant at [place] 2012 -Check A1c -Pt reports hypoglycemia despite holding insulin x 4 days. Home insulin regimen Lantus 7 U QHS. -Accuchecks + extra LDSSI Complicated UTI (urinary tract infection) 09/17/2018 05/14/2020 Assessment & Plan (09/18/2018 9:16 AM GUEST SERVICES DIRECTOR): -U/A c/f UTI at OSH s/p Levaquin -Repeat U/A here Positive; Culture pending -CTX. Of note, pt has a listed allergy to PCN and cefuroxime although states that she is able to tolerate other cephalosporins and has had Rocephin in the past. She also takes Macrodantin chronically for chronic reflux per pt. Pt feels clinically improved after Ctx; Will Rx cephalosporin PO to complete 7 day course (5 more days.) F/u PCP and GI MD, Plan d/c today; Follow up culture results to tailor abx if necessary Discharge Planning I have spent 35 minutes on discharge planning activities. Time spent was on Coordination of care, d/c summary, med rec, Rxs. Assessment & Plan (09/17/2018 5:27 AM GUEST SERVICES DIRECTOR): -U/A c/f UTI at OSH s/p Levaquin -Repeat U/A with culture -CTX. Of note, pt has a listed allergy to PCN and cefuroxime although states that she is able to tolerate other cephalosporins and has had Rocephin in the past. She also takes Macrodantin chronically for chronic reflux per pt. 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 05/14/2020 Type II or unspecified type diabetes mellitus without mention of complication, not stated as uncontrolled 03/30/2018 05/14/2020 Acquired absence of spleen 07/28/2017 1 08/06/2020 Coronary artery disease invo lving coronary bypass graft of kake heart without angina pectoris 01/22/2017 05/14/2020 Gastric ulcer 04/29/2016 06/06/2021 Osteopenia 01/20/2016 05/14/2020 Type 1 diabetes mellitus with complication 01/20/2016 05/14/2020 Hyperlipidemia 05/16/2015 05/14/2020 Sedative, hypnotic or anxiol ytic dependence, uncomplicated 05/16/2015 05/14/2020 Hypothyroidism 02/02/2015 05/14/2020 Hypothyroidism 02/02/2015 05/14/2020 Overview (12/07/2019): Last Assessment & Plan: -2/2 HIRSCH as treatment for Graves disease -Check TSH -Cont Synthroid 300 Personal history of other en docrine, nutritional and metabolic disease 09/10/20142019 Presence of aortocoronary bypass graft 09/10/2014 05/14/2020 Obstructive sleep apnea syndrome 09/10/2014 05/14/2020 S/P CABG x 2 09/10/2014 05/14/2020 Essential hypertension, benign 09/10/2014 05/14/2020 Obstructive sleep apnea syndrome 09/10/2014 05/14/2020 Overview (12/07/2019): Last Assessment & Plan: -Cont CPAP 14 Fracture of fibula 10/09/2013 0 Fracture of tibia 10/02/2013 05/14/2020 Thyroid activity decreased 01/18/2013 1 Immunizations Immunization Administration Dates Next Due Hib (PRP-T) 10/07/2012 Influenza, Quadrivalent, Hig h Dose, Preservative Free, Intrr 07/20/2022 Influenza, Quadrivalent, Spl it, Intramuscular 05/14/2021,05/16/2018,05/25/2017 Influenza, Quadrivalent, Spl it, Preservative Free, Intramuscular 05/14/2021,05/13/2020,05/23/2019,04/09 Influenza, Trivalent, IM (MDV) 06/05/2014 Influenza, Trivalent, Preser vative Free, Intramuscular 05/08/2016 Influenza, Unspecified 05/14/2021,2019,05/16/2018,05/25,05/08/2016,06/05/2014,04/09/2013 Meningococcal MCV4P (Menactra) 10/07/2012 Moderna SARS-CoV-2 Monovalen t Vaccination (12+ YRS) 09/18/2020,08/21/2020 Pneumococcal Polysaccharide PPV23 2020,05/23/2019,05/16/2018,07/28,04/29/2016,10/07/2012 Tdap 05/25/2017 ZOSTER LIVE 10/07/2012 Surgical History Surgery Date Site/Laterality Comments CORONARY ARTERY BYPASS GRAFT CHOLECYSTECTOMY APPENDECTOMY TONSILLECTOMY HYSTERECTOMY SECTION SPLENECTOMY OTHER SURGICAL HISTORY auto islet cell transplant 2012 OTHER SURGICAL HISTORY hepaticojejunostomy, duodenojejunostomy PANCREATECTOMY IM NAILING TIBIA Right fibula LASIK SMALL INTESTINE SURGERY SPLENECTOMY, TOTAL Medical History Medical History Date Comments Coronary artery disease Diabetes mellitus (HCC) Hypertension Thyroid disease DVT (deep venous thrombosis) STEFANY on CPAP Pancreatic divisum Osteoporosis Gastric ulcer 04/29/2016 PONV (postoperative nausea and vomiting) Colon polyp GERD (gastroesophageal reflux disease) Hyperlipidemia Diabetes mellitus type I (HCC) Seizures (HCC) Cataract Family History Medical History Relation Name Comments Cancer Brother Lopez skin Diabetes Father Reno Heart disease Father Reno Hypertension Father Reno Kidney disease Father Reno Vision loss Father Reno Alzheimer's disease Mother Briseyda Graves' disease Mother Briseyda Relation Name Status Comments Brother Lopez Father Reno Mother Briseyda Social History Tobacco Use Types Packs/Day Years Used Date Smoking Tobacco: Never Smokeless Tobacco: Never Alcohol Use Standard Drinks/Week Comments No 0 (1 standard drink = 0.6 oz pur e alcohol) Humiliation, Afraid, Rape, and Kick questionnair e Answer Date Recorded Within the last year, have y ou been afraid of your partner or ex-partner? No 06/04/2021 Within the last year, have y ou been humiliated or emotionally abused in other ways by your partner or ex-partner? No Within the last year, have y ou been kicked, hit, slapped, or otherwise physically hurt by your partner or ex-partner? No 06/04/2021 Within the last year, have y ou been raped or forced to have any kind of sexual activity by your partner or ex-partner? No 06/04/2021 Social Connection and Isolat ion Panel [NHANES] Answer Date Recorded In a typical week, how many times do you talk on the phone with family, friends, or neighbors? More than three times a week 07/20/2022 How often do you get togethe r with friends or relatives? More than three times a week 07/20/2022 How often do you attend [facility] or synagogue services? Never 07/20/2022 Do you belong to any clubs o r organizations such as alevism groups, unions, fraternal or athletic groups, or school groups? No 07/20/2022 How often do you attend meet ings of the clubs or organizations you belong to? Never 07/20/2022 Are you , , di vorced, , never , or living with a partner? 07/20/2022 AUDIT-C Answer Date Recorded Q1: How often do you have a drink containing alc ohol? Monthly or less 07/20/2022 Q2: How many drinks containi ng alcohol do you have on a typical day when you are drinking? 1 or 2 07/20/2022 Q3: How often do you have si x or more drinks on one occasion? Never 07/20/2022 Overall Financial Resource Strain (CARDIA) Answe r Date Recorded How hard is it for you to pa y for the very basics like food, housing, medical care, and heating? Not very hard 07/20/2022 PHQ-2 Answer Date Recorded PHQ-2 Total Score (If total score is 3 or more points, staff should administer the PHQ-9) 0 07/20/2022 [facility] - Occupational Stress Questionnaire Answer Date Recorded Do you feel stress - tense, restless, nervous, or anxious, or unable to sleep at night because your mind is troubled all the time - these days? Very much 06/04/2021 Exercise Vital Sign Answer Date Recorde d On average, how many days pe r week do you engage in moderate to strenuous exercise (like a brisk walk)? 3 days 06/04/2021 On average, how many minutes do you engage in exercise at this level? 20 min 06/04/2021 Hunger Vital Sign Answer Date Recorded Within the past 12 months, y ou worried that your food would run out before you got the money to buy more. Never true 06/04/20 21 Within the past 12 months, t he food you bought just didn't last and you didn't have money to get more. Never true 06/04/2021 PRAPARE - Transportation Answer Date Re corded In the past 12 months, has l ack of transportation kept you from medical appointments or from getting medications? No 07/02 In the past 12 months, has l ack of transportation kept you from meetings, work, or from getting things needed for daily living? No 07/20/2022 Personal Safety Answer Date Recorded Have you ever been in or are you currently in a harmful physical or emotional relationship or is someone making you feel afraid or unsafe? Denies 11/05/2022 Comments Unknown Sex and Gender Information Value Date Recorded Sex Assigned at Not on file Legal Sex Female 2:48 AM GUEST SERVICES DIRECTOR Gender Identity Not on file Sexual Orientation Not on file Obstetrics History Last Filed Vital Signs Vital Sign Reading Time Taken Comments Blood Pressure 148/98 11/05/2022 9:17 PM CDT Pulse 59 11/05/2022 6:23 PM CDT Temperature 36.5 C (97.7 F) 11/05/2022 4:01 PM CDT Respiratory Rate 18 11/05/2022 6:23 PM CDT Oxygen Saturation 97% 11/05/2022 6:23 PM CDT Inhaled Oxygen Concentration - - Weight 73.1 kg (161 lb 2.5 oz) 11/05/2022 4:01 P M CDT Height 152.4 cm (5') 11/05/2022 4:01 PM CDT Body Mass Index 31.47 11/05/2022 4:01 PM CDT Plan of Treatment Health Maintenance Due Date Last Done Comments Colon Cancer Screening-Colonoscopy 1955 Dilated Eye Exam 1955 Foot Exam 1955 Meningococcal B Vaccine (1 o f 5 - Increased Risk) 1967 Zoster Vaccine (2 of 3) 12/02/2012 10/07/2012 Hemoglobin A1C 02/13/2020 08/15/2019, 05/02, 02/09/2019, Additional history exists Pneumococcal vaccine 65+ (3 of 3 - PCV) 06/04/2022 06/04/2021, 05/23/2019, 05/16/2018, Additional history exists Albumin Creatinine Ratio, Urine 12/12/2022 eGFR 03/29/2023 03/29/2022, 03/03, 03/21/2022, Additional history exists Depression Screening 07/20/2023 07/20/2022, 03/27/2022, 06/04/2021, Additional history exists Fall Risk Assessment 07/20/2023 07/20/2022, 03/29/2022, 06/04/2021, Additional history exists Well Visit 65+ 07/20/2023 07/20/2022, 11/0 09/2020, 05/06/2020 Breast Cancer Screening-Mammogram 02/09/2024 02/08/2023, 02/08/2023, 02/08/2023, Additional history exists Covid-19 Vaccine (2023-2 5 season) 2024 07/28/2021, 09/18/2020, 08/21/2020 Lipid Panel 06/21/2024 06/21/2023, 0509/2021, 05/23/2019, Additional history exists Osteoporosis Screening-Bone Density Scan 02/08/2025 02/08/2023, 04/01/2015 Influenza Vaccine (#1) 2025 , 05/14/2021, 05/14/2021, Additional history exists DTaP/Tdap/Td Vaccine (2 - Td or Tdap) 05/25/2027 05/25/2017 Hepatitis B Screening Completed 06/06/2024 Hepatitis C Screening Discontinued Medical Devices Implanted Type Area Manager Safe Device Identifier Shelf Expiration Date Model / Serial / Lot Sensor N/A: Abdomen Wires N/A: Chest Wall Abilio,Screws Right: Leg Procedures Procedure Name Priority Date/Time Associated Diagnosis Comments EGFR Routine 03/29/2022 5:44 AM CDT LIPID PANEL Routine 12/12/2021 12:01 PM CDT ALBUMIN CREATININE RATIO, URINE Routine 12/12/2021 11:52 AM CDT HEMOGLOBIN A1C Routine 08/15/2019 11:36 AM GUEST SERVICES DIRECTOR Type 2 diabetes mellitus with diabetic autonomic neuropathy, with long-term current use of insulin (HCC) DEXA AXIAL SKELETON BONE DENSITY 1 OR MORE SITES Routine 04/01/2015 2:00 PM CDT SCREENING MAMMOGRAM BILATERAL W CHIP Routine 04/01/2015 11:20 AM CDT from Last 3 Months or Most Recently Relevant to Health Maintenance Results * eGFR (03/29/2022 5:44 AM CDT) eGFR 97 mL/min/1. 73 m2 [facility] Comment: Interpretive Data Reference Interval Normal >/= 90 mL/min/1.73m2 Mildly decreased* 60 - 89 mL/min/1.73m2 Mildly to moderately decreased 45 - 59 mL/min/1.73m2 Moderately to severely decreased 30 - 44 mL/min/1.73m2 Severely decreased 15 - 29 mL/min/1.73m2 Kidney Failure < 15 mL/min/1.73m2 *Relative to young adult level Estimated glomerular filtration rate is determined by the 2020 CKD-EPI equation recommended by the National Kidney Foundation (A Unifying Approach to GFR Estimation: Recommendations of the NKF-ASK Task Force on Reassessing the Inclusion of Race in Diagnosing Kidney Disease, JASN 2020). The CKD-EPI equation should not be used for patients with unstable renal function and has not been validated in children and those over 70. Current interpretive data was last reviewed 2021. Blood 03/29/2022 5:44 AM CDT 03/29/2022 5:50 AM CDT Ariadna Wesley MD LAB BLOOD ORDERABLES Elyssa joel Result [facility] 1 [facility] Department [place] [address] * (ABNORMAL) Lipid panel (12/12/2021 12:01 PM CDT) Cholesterol 124 30 - 199 mg/dL [facility] Comment: Interpretive Data Ages < or = 19 years Acceptable: <170 mg/dL Borderline high: 170-199 mg/dL High: >or= 200 mg/dL Ages > or = 20 years Desirable: <200 mg/dL Borderline high: 200-239 mg/dL High: >or= 240 mg/dL Literature References: 1. Expert Panel on Integrated Guidelines for Cardiovascular Health and Risk Reduction in Children and Adolescents. Pediatrics 2011;128:S213 2. NCEP Expert Panel. Circulation 2004;110:227 Current Interpretive Data was last revised on 2018. Triglycerides 80 <=149 mg/dL [facility] Comment: Interpretive Data Ages < or = 9 years Acceptable: <75 mg/dL Borderline high: 75-99 mg/dL High: >or= 100 mg/dL Ages 10 to 20 years Acceptable: <90 mg/dL Borderline high: 90-129 mg/dL High: >or= 130 mg/dL Ages > or = 20 years Desirable: <150 mg/dL Borderline high: 150-199 mg/dL High: 200-499 mg/dL Very high: >or= 499 mg/dL Literature References: 1. Expert Panel on Integrated Guidelines for Cardiovascular Health and Risk Reduction in Children and Adolescents. Pediatrics 2011;128:S213 2. NCEP Expert Panel. Circulation 2004;110:227 Current Interpretive Data was last revised on 2018. HDL 37(L) >=40 mg/dL [facility] Comment: Interpretive Data Ages < or = 19 years Acceptable: >45 mg/dL Borderline low: 40-45 mg/dL Low: <40 mg/dL Ages > or = 20 years Desirable: >or= 60 mg/dL Low: <40 mg/dL Literature References: 1. Expert Panel on Integrated Guidelines for Cardiovascular Health and Risk Reduction in Children and Adolescents. Pediatrics 2011;128:S213 2. NCEP Expert Panel. Circulation 2003;110:227 Current Interpretive Data was last revised on 2018. LDL, calculated 71 <=129 mg/dL [facility] Comment: Interpretive Data Ages < or = 19 years Acceptable: <110 mg/dL Borderline high: 110-129 mg/dL High: >or= 130 mg/dL Ages > or = 20 years Optimal: <100 mg/dL Near optimal: 100-129 mg/dL Borderline high: 130-159 mg/dL High: >160 mg/dL Literature References: 1. Expert Panel on Integrated Guidelines for Cardiovascular Health and Risk Reduction in Children and Adolescents. Pediatrics 2011;128:S213 2. NCEP Expert Panel. Circulation 2003;110:227 Current Interpretive Data was last revised on 2018. Non-HDL Cholesterol 87 mg/dL [facility] Comment: Interpretive Data Ages < or = 19 years Acceptable: <120 mg/dL Borderline high: 120-144 mg/dL High: >145 mg/dL Ages > or = 20 years When triglycerides are >200 mg/dL, Non-HDL cholesterol is a secondary target of therapy with treatment goals that are 30 mg/dL greater than the LDL cholesterol target. Literature References: 1. Expert Panel on Integrated Guidelines for Cardiovascular Health and Risk Reduction in Children and Adolescents. Pediatrics 2011;128:S213 2. NCEP Expert Panel. Circulation 2004;110:227 Current Interpretive Data was last revised on 2018. Chol/HDL ratio 3 [facility] Blood 12/12/2021 12:0 1 PM CDT 12/12/2021 12:15 PM CDT Brain Salinas MD LAB BLOOD ORDERABLES Final Result Performing Organization Address [facility] Co de Phone Number [address] [email or web address] [address] * Albumin Creatinine Ratio, Urine (12/12/2021 11:52 AM CDT) Albumin Ur 13.8 mg/L [facility] Comment: Interpretive Data No reference range established. Current interpretive data was last revised 2018. Creatinine Ur 58.0 mg/dL [facility] Comment: Interpretive Data No reference range established. Current interpretive data was last revised 2018. Albumin Creatinine Ratio, Ur 24 1 - 29 mg/g [facility] Urine 12/12/2021 11:5 2 AM CDT 12/12/2021 12:13 PM CDT Brain Salinas MD LAB URINE ORDERABLES Final Result Performing Organization Address [facility] Co de Phone Number [address] [email or web address] [address] * (ABNORMAL) Hemoglobin A1c (08/15/2019 11:36 AM GUEST SERVICES DIRECTOR) Hemoglobin A1c % 5.7(H) 4.0 - 5.6 % [facility] Comment: ADA 2016 GUIDELINES: Initial Diagnostic Criteria HbA1c Result: Interpretation: <5.7% Normal 5.7-6.4% At risk for diabetes mellitus >=6.5% Consistent with diabetes mellitus Diabetes monitoring Target value (ADA Recommended) <7% Blood specimen (specimen) 08/15/2019 11:36 AM GUEST SERVICES DIRECTOR 08/15/2019 1:42 PM GUEST SERVICES DIRECTOR Narrative Resulting Agency Comment CLI us Gia [facility] LAB BLOOD ORDERABLES Fi nal Result [address] [address], [facility] [phone] * Dexa Axial Skeleton Bone Density 1 or 2 Site (04/01/2015 2:00 PM CDT) Anatomical Region Laterality Modality Body N/A Radiographic Mya ging 04/01/2015 2:00 PM CDT Impressions 04/01/2015 4:38 PM CDT Low bone mass. Fracture risk, as above. Bone mineral density: Normal (T-score above or = -1.0) Low bone mass (T-score between -1.0 and -2.5) replaces the previously used term osteopenia Osteoporosis (T-score = or below -2.5) Medical evaluation for secondary causes of low bone mineral density may be appropriate. FRAX is a World Health Organization validated fracture risk assessment tool that calculates a person's 10 year probability of a major osteoporosis related fracture and hip fracture. According to the National Osteoporosis Foundation guidelines, postmenopausal women and men age 50 or older with low bone mass and a 10 year probability of a major osteoporosis related fracture = or greater than 20% or a 10 year probability of a hip fracture = or greater than 3% should be considered for treatment. For further information, including treatment recommendations, please refer to the 2013 ISCD Official Positions (http://www.iscd.org) and the NOF's Clinician's Guide to Prevention and Treatment of Osteoporosis (http://www.nof.org/professionals/clinical-guidelines) THIS IS AN ELECTRONICALLY VERIFIED REPORT 04/01/2015 4:35 PM: Deonte Nelson M.D. Deonte Nelson M.D. NH:wa 04:35 PM 04:35 PM [facility] [EOD] Narrative 04/01/2015 4:38 PM CDT HISTORY: 59 year old postmenopausal female. Current Height: 63 inches Maximum Height: Not provided Weight: 171 pounds RISK FACTORS: History of tibia/fibula fracture as an adult. History of 4-5 falls in the past year. She takes antiepileptic medication, multivitamin, vitamin D and calcium. She regularly performs weightbearing exercises and regularly consumes dairy products and caffeinated beverages. 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 In such patients, clinical judgement must be exercised in interpreting FRAX scores as the fracture risk may be overestimated. Procedure Note Provider, MD Diana - 12/17/2020 HISTORY: 59 year old postmenopausal female. Current Height: 63 inches Maximum Height: Not provided Weight: 171 pounds RISK FACTORS: History of tibia/fibula fracture as an adult. History of 4-5 falls in the past year. She takes antiepileptic medication, multivitamin, vitamin D and calcium. She regularly performs weightbearing exercises and regularly consumes dairy products and caffeinated beverages. 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 In such patients, clinical judgement must be exercised in interpreting FRAX scores as the fracturerisk may be overestimated. IMPRESSION: Low bone mass. Fracture risk, as above. Bone mineral density: Normal (T-score above or = -1.0) Low bone mass (T-score between -1.0 and -2.5) replaces the previously used term osteopenia Osteoporosis (T-score = or below -2.5) Medical evaluation for secondary causes of low bone mineral density may be appropriate. FRAX is a World Health Organization validated fracture risk assessmenttool that calculates a person's 10 year probability of a major osteoporosisrelated fracture and hip fracture. According to the National OsteoporosisFoundation guidelines, postmenopausal women and men age 50 or older with low bonemass and a 10 year probability of a major osteoporosis related fracture = or greater than 20% or a 10 year probability of a hip fracture = or greaterthan 3% should be considered for treatment. For further information, including treatment recommendations, please referto the 2013 ISCD Official Positions (http://www.iscd.org) and the NOF's Clinician's Guide to Prevention and Treatment of Osteoporosis (http://www.nof.org/professionals/clinical-guidelines) THIS IS AN ELECTRONICALLY VERIFIED REPORT 04/01/2015 4:35 PM: Deonte Nelson M.D. Deonte Nelson M.D. NH:marilyn 04:35 PM 04:35 PM [facility] [EOD] Ramirez Wheeler MD IMG DXA PROCEDURES Final Result * Screening Mammogram Bilateral W Chip (04/01/2015 11:20 AM CDT) Anatomical Region Laterality Modality Breast Bilateral Mammography 04/01/2015 11:2 0 AM CDT Impressions 04/01/2015 4:56 PM CDT BIRADS 1: NEGATIVE There is no mammographic evidence of malignancy. A 1 year screening mammogram is recommended. The patient has been or will be contacted. The patient will be entered into an automated reminder system to schedule a mammogram in one year. Electronically signed by: Dr. Deonte Nelson nh/:04/01/2015 16:55:51 Director Funds Development: Sita Sotelo RT Norma)(M), [facility] letter sent: Normal Exam Reading location: BI-RADS: 1 Negative [EOD] Narrative 04/01/2015 4:56 PM CDT - [facility] BILAT SCREENING 3D W/CAD BILATERAL DIGITAL SCREENING MAMMOGRAM 3D/2D WITH CAD WITH MEDIOLATERAL OBLIQUE CRANIOCAUDAL: 04/01/2015 The study was acquired using full field digital technology and interpreted from soft copy. Current study was also evaluated with ICAD version 7.2. CLINICAL: New Baseline exam. Patient denies any problems today. No family or personal history of breast cancer. COMPARISONS: None. BREAST TISSUE: The tissue of both breasts is heterogeneously dense, which may obscure small masses. FINDINGS: No significant masses, calcifications, or other findings are seen in either breast. Procedure Note Provider, MD Diana - 12/17/2020 - [facility] BILAT SCREENING 3D W/CAD BILATERAL DIGITAL SCREENING MAMMOGRAM 3D/2D WITH CAD WITH MEDIOLATERALOBLIQUE CRANIOCAUDAL: 04/01/2015 The study was acquired using full field digital technology and interpretedfrom soft copy. Current study was also evaluated with ICAD version 7.2. CLINICAL: New Baseline exam. Patient denies any problems today. No familyor personal history of breast cancer. COMPARISONS: None. BREAST TISSUE: The tissue of both breasts is heterogeneously dense, whichmay obscure small masses. FINDINGS: No significant masses, calcifications, or other findings areseen in either breast. IMPRESSION: BIRADS 1: NEGATIVE There is no mammographic evidence of malignancy. A 1 year screeningmammogram is recommended. The patient has been or will be contacted. The patient will be entered into an automated reminder system to schedulea mammogram in one year. Electronically signed by: Dr. Deonte Nelson nh/:04/01/2015 16:55:51 Director Funds Development: Sita Sotelo RT (Jhon)(M), [facility] letter sent: Normal Exam Reading location: BI-RADS: 1 Negative [EOD] us Ramirez Wheeler MD IMG MAMMO PROCEDURES Final Resu lt from Last 3 Months or Most Recently Relevant to Health Maintenance Insurance [facility] Advance Directives For more information, please contact: [phone] Documents on File Type Date Recorded Patient Dog Or Horse Racing Official Expl anation ADVANCE DIRECTIVE 06/13/2013 12:00 AM POW ER OF ENTRY LEVEL MACHINE OPERATOR FINANCIAL/MEDICAL * Full Code (Latest Code Status on File) Date Activated Date Inactivated Comments 03/28/2022 9:01 AM 03/29/2022 5:21 PM * Full Code Date Activated Date Inactivated Comments 03/18/2022 12:09 AM 03/21/2022 7:25 PM * Full Code Date Activated Date Inactivated Comments 09/17/2018 4:42 AM 09/18/2018 6:53 PM Care Teams Cork Pressing Machine Operator Relationship Specialty Start Date End Date Laine Ortiz MD [address] [address] Referring Physician Cardiology 06/04/21 Jani Howard MD [address] [facility] [address] [place] [address] Consulting Physician Pulmonary Disease 06/04/21 Francie Waldron MD [address] [facility] [address] [place] [address] Consulting Physician Gastroenterology 06/04/21 Ramirez Rowe, DPM [address] [facility] [address] [place] [address] Consulting Physician Podiatry 06/04/21
--- OUTSIDE RECORDS SUMMARY | 2025-03-04 02:14 | XMS_ITS ---
Author Organization [facility] Address [address] [place], [place] [id number] Care Team Providers Care Sewer Tapper Name Role Phone JHONY MCGUIRE Unavailable [phone] Ramirez Wheelre Unavailable Unavailable REASON FOR VISIT *Diabetic foot exam Encounters Encounter Location Date Provider Diagnosis [facility] [place] [address] [address] [place], [place] [id number] 11/29/2024 JHONY MCGUIRE Plan Of Treatment No Information Progress Notes * NONA MITTAL ADOB:1955 ( 69 yo F)Acc No.[id number]:11/29/2024 Progress Notes Patient: NONA DUARTE Provider: Zena MCGUIRE :1955 A ge:69 Y S ex:Female Date:11/29/2024 Address:[address] [place], [place] [id number] Subjective: * Chief Complaints: * 1 . *Diabetic foot exam. * Medical History: Objective: * Vitals: Assessment: Plan: * Treatment: * Billing Information: * Visit Code: * Procedure Codes: * Electronic signature of OLIVIA MCGUIRE DPM on 03/04/2025 at 02:14 AM CDT Sign off status: Pending * Provider: Zena MCGUIRE Date: 11/29/2024 Generated for Printi ng/Faxing/eTransmitting on: 0 03/04/2025 02:14 AM CDT
--- OUTSIDE RECORDS SUMMARY | 2025-03-04 02:14 | XMS_ITS | Encounter Summary ---
Author Organization [facility] Address [address] [place] [place] [address] Care Team Providers Care Deaf/Hard Of Hearing Specialist Name Role Phone Ramirez Wheeler MD Primary Care Provider [phone] Encounter Details Date Type Department Care Team (Late Contact Info) Description 01/22/2025 Results Follow-Up [facility] - Endocrinology [address] [place] [phone] Brigid Cano, SOLAR RESOURCE ASSESSOR-CHEMICAL TEST ENGINEER [address] [place] [phone] Social History Tobacco Use Types Packs/Day Years Used Date Smoking Tobacco: Never Alcohol Use Standard Drinks/Week Comments Yes 0 (1 standard drink = 0.6 oz pur e alcohol) Comments No Sex and Gender Information Value Date Recorded Sex Assigned at Not on file Legal Sex Female 6:01 PM BATTERY CHARGER TESTER Gender Identity Not on file Sexual Orientation Not on file documented as of this encounter Plan of Treatment Upcoming Encounters Date Type Department Care Team (Late Contact Info) Description 05/28/2025 3:20 PM CDT Office Visit [facility] - Endocrinology [address] [place] [phone] Brigid Cano, SOLAR RESOURCE ASSESSOR-CHEMICAL TEST ENGINEER [address] [place] [phone] 08/22/2025 3:40 PM BATTERY CHARGER TESTER Office Visit [facility] Medical [facility] - Endocrinology [address] [place] [address], [address] [phone] [place] [address] [address] documented as of this encounter Visit Diagnoses Not on filedocumented in this encounter Care Teams Deaf/Hard Of Hearing Specialist Relationship Specialty Start Date End Date Ramirez Wheeler MD [address] [facility] [place] [address] PCP - General 11/30/17 documented as of this encounter
--- OUTSIDE RECORDS SUMMARY | 2025-03-04 02:14 | XMS_ITS | Encounter Summary ---
Author Organization [facility] Address [address] [place] [address] Care Team Providers Care Supervisor Lime Name Role Phone Laine Ortiz MD Unavailable [phone] Kike Avalos MD Primary Care Provider [phone] Ramirez Wheeler MD Primary Care Provider [phone] Reason for Visit * Reason Onset Date Comments Referral 03/10/2024 Encounter Details Date Type Department Care Team (Late st Contact Info) Description 03/10/[address] [address] Ramirez Wheeler MD [address] [facility] [address] [place] [phone] Referral Social History Tobacco Use Types Packs/Day Years Used Date Smoking Tobacco: Never Smokeless Tobacco: Never Alcohol Use Standard Drinks/Week Comments No 0 (1 standard drink = 0.6 oz pur e alcohol) PHQ-2 Answer Date Recorded Patient Health Questionnaire-2 Score 0 11/11/2022 Comments No Sex and Gender Information Value Date Recorded Sex Assigned at Female 02/06/2025 12:55 PM CDT Legal Sex Female 9:42 PM CDT Gender Identity Not on file Sexual Orientation Not on file 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 Thank you, Magali * Alex Edmondson - 03/10/2024 5:04 PM CDT Referral for Cardiology under 11/2022 Needing an Referral Under [id number] Level 3 Eval/Diagnostic/Treatment 12 visits again (please) DX I25.118, T94.39 and R07.2 Date of Service 04/19/2024 Please fax to [phone] Any questions please free to contact Magali Michele documented in this encounter Plan of Treatment Upcoming Encounters Date Type Department Care Team (Late st Contact Info) Description 07/30/2025 1:30 PM SECTION HAND Office Visit [facility], [facility] [address] [place], [place] [phone] Laine Ortiz MD Three [facility]. [address] [place] [address] documented as of this encounter Visit Diagnoses Not on filedocumented in this encounter Care Teams Supervisor Lime Relationship Specialty Start Date End Date Kike Avalos MD [address] [place] [address] PCP - General INTERNAL MEDICINE 03/02/24 04/01/24 Ramirez Wheeler MD [address] [place] [address] PCP - General FAMILY PRACTICE 04/02/24 Laine Ortiz MD [facility]. [facility] [address] [place] [address] [place] Structural Metal Fabricator Apprentice CARDIOVASCULAR DISEASE 01/31/16 documented as of this encounter
--- OUTSIDE RECORDS SUMMARY | 2025-03-04 02:14 | XMS_ITS | Encounter Summary ---
Author Organization [facility] Address [address] [place] [address] Care Team Providers Care Manufacturing Operator Name Role Phone Ramirez Wheeler MD Primary Care Provider [phone] Laine Ortiz MD Unavailable [phone] Suleman Escalante MD Primary Care Provider [phone] None, Provider Primary Care Provider [facility] Ramirez Wheeler MD Primary Care Provider [phone] Kike Avalos MD Primary Care Provider [phone] Ramirez Wheeler MD Primary Care Provider [phone] Encounter Details Date Type Department Care Team (Late st Contact Info) Description 03/31/2018 [facility] at [address] [address] Mihir Rosales MA Social History Tobacco Use [...] st Contact Info) Description 07/30/2025 1:30 PM FORMULA CHECKER Office Visit [facility] [address] [facility] [address], [address] [place] [address] Laine Ortiz MD [facility] [address] [place] [address] documented as of this encounter Procedures Procedure Name Priority Date/Time Associated Diagnosis Comments HEMOGLOBIN, GLYCOSYLATED Routine 02/08/2018 THYROXINE, FREE (FT4) Routine 02/08/2018 THYROID STIM HORMONE TSH Routine 02/08/2018 documented in this encounter Results * THYROXINE, FREE (FT4) (02/08/2018) FREE T4 1.22 02/08/2018 us Doc [facility] Final Result * THYROID STIM HORMONE, TSH (02/08/2018) TSH 4.76 02/08/2018 us Doc [facility] Final Result * HEMOGLOBIN, GLYCOSYLATED (02/08/2018) HGB A1C 6.2 02/08/2018 us Doc [facility] Edited Resul t - Final documented in this encounter Visit Diagnoses Not on filedocumented in this encounter Care Teams Manufacturing Operator Relationship Specialty Start Date End Date Ramirez Wheeler MD PCP - General FAMILY PRACTICE 01/31/16 08/01/22 Suleman Escalante MD [address] [facility] [address] [place] [address] PCP - General FAMILY PRACTICE 08/02/22 05/30/23 Jenn Naranjo MD PCP - General UNKNOWN PHYSICIAN SPECIALTY 05/31/23 06/27/23 Ramirez Wheeler MD PCP - General FAMILY PRACTICE 06/28/23 03/01/24 Kike Avalos MD [address] [place] [address] PCP - General INTERNAL MEDICINE 03/02/24 04/01/24 Ramirez Wheeler MD [address] [place] [address] PCP - General FAMILY PRACTICE 04/02/24 Laine Ortiz MD Three [facility]. [address] [place] [address] Jhony Fabric Cutter CARDIOVASCULAR DISEASE 01/31/16 documented as of this encounter
--- OUTSIDE RECORDS SUMMARY | 2025-03-04 02:14 | XMS_ITS | Clinical Summary ---
Author Organization [facility] Address [place] [place] [address] Care Team Providers Care Heart Doctor Name Role Phone Laine Ortiz MD Unavailable [phone] Ximena Wheeler MD Primary Care Provider Allergies Active Allergy Reactions Criticality Noted Date Comments Atorvastatin Myalgias Medium 10/16/2016 Cefuroxime Rash Medium 10/21/2018 Rash Hydromorphone Hives,Unknown Medium 02/02/2015 Isosorbide Nitrate Headache,Nausea and Vomiting Low 10/16/2016 Methylprednisolone Unknown 11/07/2018 Metoclopramide Dystonia,Other (see comment),Unknown Low 06/19/2014 hyperactivity Metoclopramide ok per Dr. Jenny Benjamin. Metoclopramide is a home medication. 09-17-18 Adelita Ralph. Metoclopramide ok per Dr. Jenny Benjamin. Metoclopramide is a home medication. 09-17-18 Loree, PharmD. Makes her very hyper hyperactivity, hyperactivity Niacin Unknown 10/16/2016 Nystatin Other (see comment),Nausea and Vomiting Low 09/09/2014 Unable to take due to transplant Unable to take due to transplant, Unable to take due to transplant Penicillins Hives Medium 10/16/2016 Hives Hives Prochlorperazine Unknown,Other (see comment) Low 10/21/2018 Okay to give with benedryl as patient has tolerated in the past per Yao Borja MD. 09-17-2018 Angie Gallagher PharmD Okay to give with benedryl as patient has tolerated in the past per Yao Borja MD. 09-17-2018 Angie Gallagher PharmD Other reaction(s): HYPERACTIVITY HYPERACTIVITY Other reaction(s): HYPERACTIVITY HYPERACTIVITY Propoxyphene Hives,Unknown Medium 06/19/2014 Hives Propoxyphene Rash Medium 06/19/2014 Rosuvastatin Myalgias Medium 10/16/2016 Simvastatin Myalgias,Headache Medium 10/16/2016 Muscle cramps Steroids Other (see comment) 10/16/2016 Cannot take due to transplant Sufentanil Hives Medium 06/19/2014 Sulfa Antibiotics Hives Medium 10/16/2016 Vancomycin Hives Medium 10/16/2016 Medications nebivolol (BYSTOLIC) 10 MG tablet Take 1 tablet (10 mg total) by mouth daily. Active Multiple Vitamin (DAILY VITAMINS) Tab Take 2 tablets by mouth daily. Active Calcium Carbonate Antacid (TUMS OR) Take 4 tablets by mouth daily. Active CPAP MACHINE nightly at bedtime. Active nitroglycerin 0.[address] 1 tablet (0.4 mg total) under the tongue every 5 (five) minutes as needed for Chest Pain. Maximum of 3 doses. 25 tablet 1 Active diphenoxylate-atr opine 2.5-0.025 MG tablet Take 2 tablets by mouth as needed. Active ondansetron 8 MG disintegrating tablet DISSOLVE 1 TAB BY MOUTH UP TO ONCE DAILY NEEDED Active pantoprazole EC 40 MG tablet Take 1 tablet (40 mg total) by mouth 2 (two) times daily. Active clopidogrel 75 MG tablet Take 1 tablet (75 mg total) by mouth daily. Active Blood Glucose Monitoring Suppl (CONTOUR NEXT ONE) Kit 5 (five) times daily. Active BD PEN NEEDLE NOREEN U/F 32G X 4 MM Misc Active levothyroxine 300 MCG tablet Take 1 tablet (300 mcg total) by mouth daily. 300 alter 275 Active pitavastatin (LIVALO) 2 MG Tab Take 1 tablet (2 mg total) by mouth daily. 90 tablet 2 Active CONTOUR NEXT TEST test strip Active busPIRone 7.5 MG tablet Take 1 tablet (7.5 mg total) by mouth nightly at bedtime. Active famotidine 20 MG tablet Take 1 tablet (20 mg total) by mouth 2 (two) times daily. Active OS-CHANO CALCIUM + D3 500-200 MG-UNIT Tab tablet Take 2 tablets by mouth daily. Active nitrofurantoin, macrocrystal-mono hydrate, 100 MG capsule Take 1 capsule (100 mg total) by mouth 2 (two) times daily. Active B-D 3CC LUER-BELINDA SYR 25GX1 25G X 1 3 ML Misc 1 SYRINGE DIRECTED 6 TIMES DAILY Active insulin aspart 100 UNIT/ML injection (PEN) 17 1 carb ratio Carb 1 units for every 50 Active aspirin EC 325 MG tablet Take 1 tablet (325 mg total) by mouth daily. Active cyclobenzaprine 10 MG tablet TAKE 1 TABLET BY MOUTH TWICE A DAY NEEDED FOR MUSCLE SPASM Active CREON 39002-506086 units CAPSULE ENTERIC COATED PARTICLES 7 tablets three times a day & take 4 tablets every night at bedtime Active Microlet Lancets Misc 3 (three) times daily. Active ranolazine ER 1000 MG TABLET SR 12 HR 12 hr tablet Take 1,000 mg by mouth 2 (two) times daily. Active Continuous Blood Gluc Loadmaster (DEXCOM G7 JET DYEING MACHINE OPERATOR) DeviceIndications :Diabetes mellitus due to underlying condition with other circulatory complication, with long-term current use of insulin ([facility] HHS/HCC) 1 each by Does not apply route daily. 1 each Active Glucagon (GVOKE HYPOPEN 2-PACK) 1 MG/0.2ML Solution Auto-injectorIndi cations:Type 2 diabetes mellitus with hyperglycemia, with long-term current use of insulin ([facility] HHS/HCC) Inject 1 mg into the skin as needed. 0.4 mL 3 023 Active SEMGLEE, YFGN, 100 UNIT/ML Solution Pen-injectorIndic ations:Type 2 diabetes mellitus with hyperglycemia, with long-term current use of insulin ([facility]) Inject 10 Units into the skin 2 (two) times a day. 10 mL 11 Active Additional Information Patient taking differently: 15 UnitsSubcutaneous BID, Reported on 01/25/2025 zolpidem (AMBIEN) 5 MG tablet Take 1 tablet (5 mg total) by mouth nightly as needed. Active amitriptyline (ELAVIL) 25 MG tablet Take 2 tablets (50 mg total) by mouth nightly at bedtime. Active vitamin D2, ergocalciferol, (DRISDOL) 1.25 mg capsule Take 1 capsule (1.25 mg total) by mouth every 7 days. Active cloNIDine (CATAPRES) 0.2 MG tablet Take 1 tablet (0.2 mg total) by mouth 2 (two) times daily. Active amLODIPine (NORVASC) 5 MG tablet Take 1 tablet (5 mg total) by mouth every evening. 30 tablet 1 Active pregabalin (LYRICA) 50 MG capsule Take 1 capsule (50 mg total) by mouth 2 (two) times daily. Active semaglutide (OZEMPIC 0.25/0.5 MG/DOSE) 2 MG/1.5ML injection (PEN) Inject 0.25 mg into the skin every 7 days. Active oyster shell calcium 500 mg, elemental, (OSCAL) 500 MG tablet Take 1 tablet (500 mg total) by mouth daily. Active Cholecalciferol (VITAMIN D3) 25 MCG (1000 UT) Cap TAKE 2 CAPSULES BY MOUTH WEEKLY WITH 86380 IU CAPSULE TO EQUAL 70,000 IU WEEKLY Active Active Problems Problem Noted Date Diagnosed Date Neck pain 01/25/2025 Coronary artery disease of n ative artery of [place] heart with stable angina pectoris 12/07/2019 Overview (05/22/2020): Last Assessment & Plan: -s/p CABG Continue ASA/Plavix/statin Last Assessment & Plan: -s/p CABG Continue ASA/Plavix/statin Disorder of pancreas ([facility]) 02/09/2019 Anxiety 09/17/2018 Overview (08/22/2019): Last Assessment & Plan: -Cont home Effexor, Ativan PRN Complicated UTI (urinary tract infection) 2018 Overview (08/22/2019): Last Assessment & Plan: -U/A c/f UTI at OSH s/p Levaquin [...] of care, d/c summary, med rec, Rxs. Diarrhea 09/17/2018 Overview (08/22/2019): Last Assessment & Plan: -Pt worsening of chronic diarrhea. Reports compliance with pancreatic enzymes. -Check Cdiff, stool cx -Cont pancreatic enzymes History of pancreatectomy 09/17/2018 Overview (08/22/2019): Last Assessment & Plan: -s/p auto islet cell transplantation -Cont pancreatic enzymes, insulin as noted above Type 2 diabetes mellitus wit h hyperglycemia, with long-term current use of insulin ([facility]) 09/17/2018 Overview (08/22/2019): Last Assessment & Plan: -Post-pancreatectomy DM s/p auto islet cell transplant at [facility] 2013 -Check A1c -Pt reports hypoglycemia despite holding insulin x 4 days. Home insulin regimen Lantus 7 U QHS. 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 Gastroparesis 02/08/2018 Acquired absence of spleen 07/28/2017 Irritable bowel syndrome with diarrhea 7 Psychophysiologic insomnia 05/25/2017 Vitamin D deficiency 05/25/2017 PAUL (generalized anxiety disorder) 01/22/2017 GERD (gastroesophageal reflux disease) 7 Coronary artery disease invo lving coronary bypass graft of [place] heart without angina pectoris 01/22/2017 Osteoarthritis of spine with radiculopathy, cerv ical region 10/02/2016 Ventricular tachycardia ([facility]) 2015 Osteopenia 01/20/2016 Hyperlipidemia 05/16/2015 Essential hypertension, benign 09/10/2014 Sedative, hypnotic or anxiol ytic dependence ([facility]) 09/10/2014 S/P CABG x 2 09/10/2014 Personal history of other en docrine, nutritional and metabolic disease 09/10/2014 Presence of aortocoronary bypass graft 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 09/10/2014 Brief psychotic disorder ([facility]) 09/10 Fracture of tibia 10/02/2013 Chronic pancreatitis ([facility]) 3 Pancreas divisum 08/11/2012 Arthritis 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 Osteopenia Seizure disorder ([facility]) Bleeding disorder Obstructive sleep apnea on CPAP Resolved Problems Problem Noted Date Diagnosed Date Resolved Date Essential hypertension 06/15/201911/11 Thyroid dysfunction 02/09/2019 05/26/20 20 Abdominal pain 09/17/2018 01/25/2025 Overview (08/22/2019): Last Assessment & Plan: -Likely due to UTI and mild dehydration in setting of finicky bowel; improved with treatment of UTI, CT A/P from [facility] grossly negative continue PPI BID -Treatment of UTI as noted below -Pain control with home Tramadol. Avoid IV opiates if possible. Chest pain 06/19/2017 11/11/2022 Precordial pain 10/28/2016 11/11/2022 Gastric ulcer 04/29/2016 01/25/2025 Bipolar disorder ([facility]) 01/20/2016 01/25/2025 Graves disease 01/20/2016 05/26/2020 Type 1 diabetes mellitus wit h complication ([facility]) 01/20/2016 08/22/2019 Hypothyroidism 02/02/2015 05/26/2020 Overview (08/22/2019): Last Assessment & Plan: -2/2 HIRSCH as treatment for Graves disease -Check TSH -Cont Synthroid 300 Exocrine pancreatic insufficiency ([facility]) 09/10/2014 01/25/2025 Postprocedural hypothyroidism 09/10/2014 01/25/2025 Acute psychosis ([facility]) 09/09/2014 01/25/2025 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 Pure hypercholesterolemia Anemia 01/25/2025 Graves disease 05/31/2020 Asthma ([facility]) 01/12/2017 Hypothyroidism 05/26/2020 Gallbladder disease 01/26/20 Palpitations 11/11/2022 B12 deficiency 01/25/2025 Hypertension 06/08/2019 Encounters Date Type Department Care Team Description 02/08/2025 Results Follow-Up [facility], [address] [address] Neha Burkett RN USE ECHOCARDIOGRAM W CON 02/06/2025 12:52 PM CDT - 02/06/2025 11:59 PM CDT Hospital Encounter [facility] [place] [address] Laine Ortiz MD Discharge Disposition: Home or Self Care (Routine Discharge) 02/06/2025 Travel 01/25/2025 2:30 PM CDT Office Visit [facility], [address] [address] Martita Stratton, EDMUND Follow Up (8 mo); Coronary Artery Disease; Hypertension 01/25/2025 Travel from Last 3 Months Immunizations Immunization Administration Dates Next Due Fluzone 6 Months+ Quad (0.5 mL Prefilled Syringe) 05/13/2020,04/09/2013 Hib Vaccine, Prp-T 10/07/2012 Influenza (Generic) 05/16/2018, 7,05/08/2016,05/08,06/05/2014,06/05/2014,04/09/2013 Influenza 3 yrs + Preservati ve Free (Fluzone) 05/08/2016 Influenza 3 yrs + with Prese rvative (Fluzone) 06/05/2014 Influenza Adult (Generic) 05/14/2021,07/2020,05/23/2019,05/16,05/16/2018,05/25/2017,05/25/2017 ,04/09/2013 MODERNA COVID-19 (12+) MRNA, LNP-S, PF, 100 MCG/ 0.5 ML DOSE 09/18/2020,08/21/2020 Meningococcal Vac A,C,Y,W-135 Sc 10/07/2012 Pneumococcal (Pneumovax 23) 06/04/2021,1 ,05/16/2018,07/28,04/29/2016,10/07/2012 Tdap (Generic) 05/25/2017 Zoster (Zostavax) 56133 Unt/0.65Ml 10/07/2012 Family History Medical History Relation Comments Drug Abuse Daughter 1 former CABGx6 Father COPD Father Diabetes Father Hyperlipidemia Father Hypertension Father Kidney Disease Father Stent Cardiac Father Stroke Maternal Aunt CHF Maternal Grandfather chronic leukemia Maternal Grandfather pvd Maternal Grandfather Diabetes Maternal Grandmother TX Maternal Grandmother CABGx6 Maternal Uncle [place] Maternal Uncle Stroke Maternal Uncle Alzheimer's disease Mother Arthritis Mother Glaucoma Mother Miscarriages / Stillbirths Mother Diabetes Paternal Grandfather Heart Disease Paternal Grandfather Relation Status Comments Brother Alive Daughter 1 Alive Daughter 2 Alive Father Maternal Aunt Maternal Grandfather (Age 78) Maternal Grandmother (Age 83) Maternal Uncle Mother Paternal Grandfather Paternal Grandmother Social History Tobacco Use Types Packs/Day Years [...] file Not on file Not on file Last Filed Vital Signs Vital Sign Reading Time Taken Comments Blood Pressure 148/92 01/25/2025 2:20 PM CDT Pulse 78 01/25/2025 2:20 PM CDT Temperature 37.1 C (98.7 F) 06/21/2023 7:37 AM SONOGRAM TECHNICIAN Respiratory Rate 19 06/21/2023 2:30 PM SONOGRAM TECHNICIAN Oxygen Saturation 96% 01/25/2025 2:20 PM CDT Inhaled Oxygen Concentration - - Weight 77.1 kg (170 lb) 01/25/2025 2:20 PM CDT Height 160 cm (5' 3) 01/25/2025 2:20 PM CDT Body Mass Index 30.11 01/25/2025 2:20 PM CDT Plan of Treatment Upcoming Encounters Date Type Department Care Team (Late st Contact Info) Description 07/30/2025 1:30 PM SONOGRAM TECHNICIAN Office Visit [facility], [facility] [address] [place] [address] Laine Ortiz MD [facility]. [facility] [address] [place], [place] [id number] Health Maintenance Due Date Last Done Comments Colorectal Cancer Screening Colonoscopy (10 Years) 1955 Kidney Health Evaluation 1955 Meningococcal B Vaccine (1 of 5 - Increased Risk) 1967 Diabetes: Retinopathy Eye Exam 1975 Hepatitis C 1975 Meningococcal Vaccine (1 - Risk start 2-23 months series) 12/02/2012 10/07/2012 RSV Immunization or 60+ Years (1 - Risk 60-74 years 1-dose series) 2017 Annual Medicare Wellness Visit 2022 Hemoglobin A1C 01/12/2024 07/13/2023, 04/09/2022, 11/05/2021, Additional history exists COVID-19 Vaccine ( season) 2024 07/28/2021, 09/18/2020, 08/21/2020 ASCVD LDL 06/21/2024 06/21/2023, 05/03, 07/28/2017, Additional history exists Zoster Vaccines (3 of 3) 09/05/2024 07/11/2024, 03/0 03/2013 Mammogram Screening 02/08/2025 02/08/2023, 5 Lipid Panel 11/08/2025 11/08/2024, 06/03, 05/23/2019, Additional history exists DTaP, Tdap and Td Vaccines (2 - Td or Tdap) 05/25/2027 05/25/2017 Dexa Scan (General) Completed 02/08/2023, 5 Pneumococcal Vaccine: 50+ Years Completed 06/06/2024, 06/04/2021, 05/23/2019, Additional history exists RSV Immunizations Under 20 Months Aged Out No longer eligible based on patient's age to complete this topic Procedures Procedure Name Priority Date/Time Associated Diagnosis Comments USE ECHOCARDIOGRAM W CON Routine 02/06/2025 2:27 PM CDT Preoperative clearance Mixed hyperlipidemia Coronary artery disease of [place] artery of [place] heart with stable angina pectoris HEMOGLOBIN, GLYCOSYLATED Routine 07/13/2023 Type 2 diabetes mellitus with hyperglycemia, with long-term current use of insulin LIPID PANEL Routine 06/21/2023 6:31 AM SONOGRAM TECHNICIAN Coronary artery disease of [place] heart with stable angina pectoris Precordial pain Abnormal stress test BONE DENSITY/DEXA Routine 02/08/2023 11: 40 AM CDT Asymptomatic menopausal state MG SCREENING W RAJINDER KELLY DIGI Routine 02/08/2023 11:05 AM CDT Encounter for screening mammogram for malignant neoplasm of breast from Last 3 Months or Most Recently Relevant to Health Maintenance Results * USE ECHOCARDIOGRAM W CON (02/06/2025 2:27 PM CDT) Anatomical Region Laterality Modality NA Echocardiogram 02/06/2025 1:24 PM CDT Narrative 02/06/2025 8:23 PM CDT Echocardiography Report Pat.Name: STEFF DUMONT Pat.ID: [id number] St.Date: 02/06/2025 Refer.: [id number] AMIRA CHILEL Y EWDPROV EWDPROV Exam Time: 1:24:00 PM Study Type:ECHO WITH CARDIAC DOPPLER COMP Height: 63 in Weight: 170 lb BSA: 1.8 m2 Age: 10 1955,69Y Sex: F BP: 100/66 HR: 57 bpm Sonogrphr: Susan Cleveland Pat. Stat.:Outpatient Reason for Study:High TSH, Coronary artery disease, Coronary bypass surgery Procedures: 2D, M-mode, Doppler, Color Flow, Definity was used to enhance endocardial definition. The study quality is technically difficult. Race: W ++++++++++++++++++++++++++++++++++++ SUMMARY: ++++++++++++++++++++++++++++++++++++ The left ventricular systolic function is normal. The calculated ejection fraction is 55%. Mild to moderate concentric left ventricular hypertrophy. Left ventricular diastolic function is abnormal (grade 1 - impaired relaxation). Wall motion appears normal in all segments. No significant valvular abnormalities. ++++++++++++++++++++++++++++++++++++ FINDINGS: ++++++++++++++++++++++++++++++++++++ LV: The left ventricular size is normal. The left ventricular systolic function is normal. The calculated ejection fraction is 55%. Mild to moderate concentric left ventricular hypertrophy. Left ventricular diastolic function is abnormal (grade 1 - impaired relaxation). The mean left atrial pressure is normal. WM: Wall motion appears normal in all segments. RV: The right ventricular size is normal. Right ventricular systolic function is mildly depressed. IVS: No evidence of ventricular septal defect. LA: The left atrial volume is normal ( less than 34 ml/M2). RA: Right atrial size is normal. IAS: Atrial septum appears intact. KARINE: No evidence of pericardial effusion. AO: Normal aortic root. PA: Estimated right atrial pressure of 3 mmHg. SVn: Inferior vena cava shows >50% collapse with respiration consistent with normal right atrial pressure. AV: The aortic valve is trileaflet. No evidence of aortic valve stenosis. No evidence of aortic regurgitation. MV: Structurally normal mitral valve. Trace mitral regurgitation. No evidence of mitral valve stenosis. PV: No evidence of pulmonic valve stenosis. Mild pulmonic regurgitation. TV: A trace of tricuspid regurgitation. Right ventricular systolic pressure is 21 mmHg. No evidence of tricuspid valve stenosis. ++++++++++++++++++++++++++++++++++++ MEASUREMENTS: ++++++++++++++++++++++++++++++++++++ DOPPLER LVOT LVOTpkPG 6.8 mmHg LVOT SV 62.5 ml LVOT TVI 26.3 cm PSV 130 cm/s LVOTmnPG 3 mmHg AV Forward Flow AV TVI 26.9 cm AV pkPG 7.4 mmHg AV pkVel 136 cm/s (100-170) Area (TVI) 2.33 cm2 (3-5)* AV mnPG 4.1 mmHg Area (David) 2.28 cm2 (3-5)* MV Forward Flow MV pkE 61 cm/s (60-130) MV pkA 72 cm/s PV Forward Flow PV pkVel 70 cm/s (60-90)+ PV AC 87 msec PV pkPG 2 mmHg PV Regurg Flow PV pkVel 125 cm/s TV Regurg Flow TV pkPG 14.9 mmHg TV pkVel 193 cm/s (30-70)* TV Forward Flow TV pkE 43 cm/s Lat E' Lat e 10.1 cm/s Lat E/E' Lat E/e 6.04 Med E' Med e 5.88 cm/s Med E/E' Med E/e 10.4 AV Antegrade Flow AV AC/ET 0.23 Ratio of LVOT M 0.96 AC 64 millisecond Ratio of LVOT V 0.978 AV ET 273 millisecond Left Atrium CO 0.4 l/min Left Atrial ES 12.3 ml/m2 Left Atrial Eje 24.5 % Global Longitud 25.5 % [place] (End 3.5 cm HR 73 bpm Left Atrial ED 9.3 ml/m2 SV 3 ml/m2 [place] (End 4.9 cm Left Ventricle Left Ventricula 107 mmHg Left Ventricle 6 cm MV Pk David to LV 7.64 LVESV 18.3 ml/m2 CO 2.6 l/min Global Longitud -20.9 % LVEF 51.9 % HR 73 bpm Left Ventricle 7.3 cm LV Mass 27.3 g/m2 LVEDV 38.1 ml/m2 SV 19.8 ml/m2 LV Triplane Global Longitud -20.9 % MV Antegrade Flow Mitral Valve A 1.18 MV E Decel time 207 millisecond MV E/A 0.85 PV Antegrade Flow Acceleration Sl 556 cm/s2 PV Regurgitant Flow Pressure Gradie 6.3 mmHg Right Ventricle Right Ventricul 9.21 centimeters per second 2D LVPW LVPWd 1.32 cm Left Atrium LA a-p 3.84 cm (2.8-3.4)* [place] (Sys 4.8 cm LA VOLBP 14.4 ml [place] (Sys 4.93 cm End Diastolic A 0.8 Diameter (Systo 2.13 cm/m2 Ratios IVS Ventricular Septum IVSd 1.45 cm Left Ventricle LVIDd 3.57 cm (4.3-5.1)* Left Ventricle 8.18 cm LVIDs 1.24 cm (2-4)+* Left Ventricle 6.46 cm LV Area meyer 26.3 cm2 Left Ventricle 6.23 cm LV EDV 0.5 ml Left Ventricle 6.46 cm LV Area meyer 28.3 cm2 LV Mass 175 gram LV EDV 0.5 ml LVA% 32.5 % LV Area sys 17.7 cm2 LVA% 43 % LV ESV 0.3 ml Left Ventricle 0.74 LV Area sys 16.1 cm2 LV SV 39.7 ml LV ESV 0.2 ml LV SV 49.2 ml LV EF 49.3 % LV SV BP 48.1 ml LV EF 57.8 % LVEDV BP 86.9 ml LV EF BP 55.4 % LVESV BP 38.8 ml Left Ventricle 7.43 cm Aorta Ascending Aorti 3.32 cm AO Dd 1.71 cm LA Single Plane Area (Systole) 13.8 cm2 Left Atrium Are 11.4 cm2 LV Area-Length Biplane LVEDV 0.5 ml/cm LVESV 0.2 ml/cm LV Area-Length Single Plane LVEDV 0.5 ml/cm LVESV 0.3 ml/cm LVEDV 0.5 ml/cm LVESV 0.2 ml/cm LVOT Cardiovascular 2.38 cm2 Cardiovascular 1.74 cm Right Atrium [place] (Sys 4.33 cm RA Single Plane Right Atrium Ar 8.82 cm2 Volume (Systole 7.8 ml/m2 Right Ventricle RVIDd 1.87 cm/m2 RVIDd 3.18 cm Kozzv-ie-opdw v 0.94 MMODE Inferior Vena Cava IVC Diam 1.78 cm Tricuspid Valve Tricuspid annul 1.44 cm <Electronic Signature> 02/06/2025 08:23 PM Laine Ortiz M.D. Procedure Note Laine Ortiz MD - 02/07/2025 Echocardiography Report Pat.Name: STEFF DUMONT Pat.ID: [id number] .Date: 02/06/2025 : [id number] AMIRA Gleason EWDPROV EWDPROV Exam Time: 1:24:00 PM Study Type:ECHO WITH CARDIAC DOPPLER COMP Height: 63 in Weight: 170 lb BSA: 1.8 m2 Age: 10 1955,69Y Sex: F BP: 100/66 HR: 57 bpm Sonogrphr: Susan Cleveland Pat. Stat.:Outpatient Reason for Study:High TSH, Coronary artery disease, Coronary bypass surgery Procedures: 2D, M-mode, Doppler, Color Flow, Definity was used to enhance endocardial definition. The study quality is technically difficult. Race: W ++++++++++++++++++++++++++++++++++++ SUMMARY: ++++++++++++++++++++++++++++++++++++ The left ventricular systolic function is normal. The calculated ejection fraction is 55%. Mild to moderate concentric left ventricular hypertrophy. Left ventricular diastolic function is abnormal (grade 1 - impaired relaxation). Wall motion appears normal in all segments. No significant valvular abnormalities. ++++++++++++++++++++++++++++++++++++ FINDINGS: ++++++++++++++++++++++++++++++++++++ LV: The left ventricular size is normal. The left ventricular systolic function is normal. The calculated ejection fraction is 55%. Mild to moderate concentric left ventricular hypertrophy. Left ventricular diastolic function is abnormal (grade 1 - impaired relaxation). The mean left atrial pressure is normal. WM: Wall motion appears normal in all segments. RV: The right ventricular size is normal. Right ventricular systolic function is mildly depressed. IVS: No evidence of ventricular septal defect. LA: The left atrial volume is normal ( less than 34 ml/M2). RA: Right atrial size is normal. IAS: Atrial septum appears intact. KARINE: No evidence of pericardial effusion. AO: Normal aortic root. PA: Estimated right atrial pressure of 3 mmHg. SVn: Inferior vena cava shows >50% collapse with respiration consistent with normal right atrial pressure. AV: The aortic valve is trileaflet. No evidence of aortic valve stenosis. No evidence of aortic regurgitation. MV: Structurally normal mitral valve. Trace mitral regurgitation. No evidence of mitral valve stenosis. PV: No evidence of pulmonic valve stenosis. Mild pulmonic regurgitation. TV: A trace of tricuspid regurgitation. Right ventricular systolic pressure is 21 mmHg. No evidence of tricuspid valve stenosis. ++++++++++++++++++++++++++++++++++++ MEASUREMENTS: ++++++++++++++++++++++++++++++++++++ DOPPLER LVOT LVOTpkPG 6.8 mmHg LVOT SV 62.5 ml LVOT TVI 26.3 cm PSV 130 cm/s LVOTmnPG 3 mmHg AV Forward Flow AV TVI 26.9 cm AV pkPG 7.4 mmHg AV pkVel 136 cm/s (100-170) Area (TVI) 2.33 cm2 (3-5)* AV mnPG 4.1 mmHg Area (David) 2.28 cm2 (3-5)* MV Forward Flow MV pkE 61 cm/s (60-130) MV pkA 72 cm/s PV Forward Flow PV pkVel 70 cm/s (60-90)+ PV AC 87 msec PV pkPG 2 mmHg PV Regurg Flow PV pkVel 125 cm/s TV Regurg Flow TV pkPG 14.9 mmHg TV pkVel 193 cm/s (30-70)* TV Forward Flow TV pkE 43 cm/s Lat E' Lat e 10.1 cm/s Lat E/E' Lat E/e 6.04 Med E' Med e 5.88 cm/s Med E/E' Med E/e 10.4 AV Antegrade Flow AV AC/ET 0.23 Ratio of LVOT M 0.96 AC 64 millisecond Ratio of LVOT V 0.978 AV ET 273 millisecond Left Atrium CO 0.4 l/min Left Atrial ES 12.3 ml/m2 Left Atrial Eje 24.5 % Global Longitud 25.5 % [place] (End 3.5 cm HR 73 bpm Left Atrial ED 9.3 ml/m2 SV 3 ml/m2 [place] (End 4.9 cm Left Ventricle Left Ventricula 107 mmHg Left Ventricle 6 cm MV Pk David to LV 7.64 LVESV 18.3 ml/m2 CO 2.6 l/min Global Longitud -20.9 % LVEF 51.9 % HR 73 bpm Left Ventricle 7.3 cm LV Mass 27.3 g/m2 LVEDV 38.1 ml/m2 SV 19.8 ml/m2 LV Triplane Global Longitud -20.9 % MV Antegrade Flow Mitral Valve A 1.18 MV E Decel time 207 millisecond MV E/A 0.85 PV Antegrade Flow Acceleration Sl 556 cm/s2 PV Regurgitant Flow Pressure Gradie 6.3 mmHg Right Ventricle Right Ventricul 9.21 centimeters per second 2D LVPW LVPWd 1.32 cm Left Atrium LA a-p 3.84 cm (2.8-3.4)* [place] (Sys 4.8 cm LA VOLBP 14.4 ml [place] (Sys 4.93 cm End Diastolic A 0.8 Diameter (Systo 2.13 cm/m2 Ratios IVS Ventricular Septum IVSd 1.45 cm Left Ventricle LVIDd 3.57 cm (4.3-5.1)* Left Ventricle 8.18 cm LVIDs 1.24 cm (2-4)+* Left Ventricle 6.46 cm LV Area meyer 26.3 cm2 Left Ventricle 6.23 cm LV EDV 0.5 ml Left Ventricle 6.46 cm LV Area meyer 28.3 cm2 LV Mass 175 gram LV EDV 0.5 ml LVA% 32.5 % LV Area sys 17.7 cm2 LVA% 43 % LV ESV 0.3 ml Left Ventricle 0.74 LV Area sys 16.1 cm2 LV SV 39.7 ml LV ESV 0.2 ml LV SV 49.2 ml LV EF 49.3 % LV SV BP 48.1 ml LV EF 57.8 % LVEDV BP 86.9 ml LV EF BP 55.4 % LVESV BP 38.8 ml Left Ventricle 7.43 cm Aorta Ascending Aorti 3.32 cm AO Dd 1.71 cm LA Single Plane Area (Systole) 13.8 cm2 Left Atrium Are 11.4 cm2 LV Area-Length Biplane LVEDV 0.5 ml/cm LVESV 0.2 ml/cm LV Area-Length Single Plane LVEDV 0.5 ml/cm LVESV 0.3 ml/cm LVEDV 0.5 ml/cm LVESV 0.2 ml/cm LVOT Cardiovascular 2.38 cm2 Cardiovascular 1.74 cm Right Atrium [place] (Sys 4.33 cm RA Single Plane Right Atrium Ar 8.82 cm2 Volume (Systole 7.8 ml/m2 Right Ventricle RVIDd 1.87 cm/m2 RVIDd 3.18 cm Swbam-ql-cwok v 0.94 MMODE Inferior Vena Cava IVC Diam 1.78 cm Tricuspid Valve Tricuspid annul 1.44 cm <Electronic Signature> 02/06/2025 08:23 PM Laine Ortiz M.D. Liane Ortiz MD ECHO Final Result * HEMOGLOBIN, GLYCOSYLATED (07/13/2023) HGB A1C 6.3 % [address] [place] 07/13/2023 Brain Salinas MD LABORATORY Final Result [address] [place] [address] [place] [address], [place] [phone] * (ABNORMAL) LIPID PANEL (06/21/2023 6:31 AM SONOGRAM TECHNICIAN) CHOLESTEROL 131 <200 MG/DL 06/21/2023 7:30 AM [facility] TRIGLYCERIDES 111 <150 MG/DL 06/21/2023 7:30 AM [facility] HDL 39(L) >40.0 MG/DL 06/21/2023 7:30 AM [facility] LDL (CALCULATED) 70 <100 MG/DL 06/21/20 7:30 AM [facility] NON HDL CHOLESTEROL 92 <130 MG/DL 06/21 7:30 AM [facility] CHOL/HDL RATIO 3.4 0.0 - 4.5 06/21/2023 7:30 AM [facility] VLDL CALCULATION 22 5 - 55 MG/DL 06/21/2023 7:30 AM [facility] LIPID INTERPRETATION 06/21/2023 7:30 AM [facility] Comment: [facility] CONCENSUS REPORT RECOMMENDATIONS: ADULT CHILD LOW RISK: CHOLESTEROL <200 <170 TRIGLYCERIDE <150 --- HDL >=60 --- LDL <100 <110 BORDERLINE: CHOLESTEROL 200-239 170-199 TRIGLYCERIDE 150-199 --- HDL 40-59 --- LDL 100-159 110-129 HIGH RISK: CHOLESTEROL >=240 >=200 TRIGLYCERIDE >=200 --- HDL <40 --- LDL >=160 >=130 06/21/2023 6:31 AM SONOGRAM TECHNICIAN Laine Ortiz MD LABORATORY Final Result [facility] [address] [place] [address], * BONE DENSITY/DEXA (02/08/2023 11:40 AM CDT) Anatomical Region Laterality Modality Bone Mammography 02/08/2023 12:2 3 PM CDT Impressions 02/08/2023 12:24 PM CDT IMPRESSION: WHO Classification: Osteopenia RECOMMENDATIONS: All patients should ensure an adequate intake of dietary calcium and vitamin D. The NOF recommend adults under the age of 50 need 1000 mg of calcium and 400-800 IU of vitamin D daily. Effective therapy for the prevention and treatment of osteoporosis include bisphosphonates. FOLLOW-UP: People with diagnosed cases of osteoporosis or at high risk for fracture should have regular bone mineral density test. For patients eligible for Medicare, routine testing is allowed once every 2 years. Testing frequency can be increased to one year for patients who have rapidly progressing disease, those who are receiving or discontinuing medical therapy to restore bone mass, or have additional risk factors. Ordered By: XIMENA WHEELER Interpreted By: Doron Wheeler, 02/08/2023 12:23 PM Narrative 02/08/2023 12:24 PM CDT EXAMINATION: BONE DENSITY/DEXA INDICATIONS: Asymptomatic menopausal state COMPARISON: None TECHNIQUE: DEXA bone mineral density evaluation was performed in the AP projection over the lumbar spine and both hips utilizing standard imaging techniques. FINDINGS: The BMD measured at the AP spine L1-L4 is 0.837 g/cm? with a T-score of -1.9. The BMD measured at the left femoral neck is 0.684 g/cm? with a T-score of -1.5. The BMD measured at the left hip is 0.915 g/cm? with a T-score of -0.2. The BMD measured at the right femoral neck is 0.629 g/cm? with a T-score of - 2.0. The BMD measured at the right hip is 0.726 g/cm? with a T-score of -1.8. FRAX 10-year fracture risk: Major Osteoporotic Fracture: 19% Hip Fracture: 1.8% Procedure Note Doron Wheeler MD - 02/08/2023 EXAMINATION: BONE DENSITY/DEXA INDICATIONS: Asymptomatic menopausal state COMPARISON: None TECHNIQUE: DEXA bone mineral density evaluation was performed in the APprojection over the lumbar spine and both hips utilizing standard imagingtechniques. FINDINGS: The BMD measured at the AP spine L1-L4 is 0.837 g/cm? with a T-score of-1.9. The BMD measured at the left femoral neck is 0.684 g/cm? with a T-score of-1.5. The BMD measured at the left hip is 0.915 g/cm? with a T-score of -0.2. The BMD measured at the right femoral neck is 0.629 g/cm? with a T-scoreof -2.0. The BMD measured at the right hip is 0.726 g/cm? with a T-score of -1.8. FRAX 10-year fracture risk: Major Osteoporotic Fracture: 19% Hip Fracture: 1.8% IMPRESSION: WHO Classification: Osteopenia RECOMMENDATIONS: All patients should ensure an adequate intake of dietary calcium andvitamin D. The NOF recommend adults under the age of 50 need 1000 mg ofcalcium and 400-800 IU of vitamin D daily. Effective therapy for theprevention and treatment of osteoporosis include bisphosphonates. FOLLOW-UP: People with diagnosed cases of osteoporosis or at high risk for fractureshould have regular bone mineral density test. For patients eligible forMedicare, routine testing is allowed once every 2 years. Testing frequencycan be increased to one year for patients who have rapidly progressingdisease, those who are receiving or discontinuing medical therapy torestore bone mass, or have additional risk factors. Ordered By: XIMENA WHEELER Interpreted By: Doron Wheeler, 02/08/2023 12:23 PM us Ximena Wheeler MD DEXA Final Result * MG SCREENING W RAJINDER KELLY DIGI (02/08/2023 11:05 AM CDT) Anatomical Region Laterality Modality Breast Bilateral Mammography 02/08/2023 2:14 PM CDT Narrative 02/08/2023 2:18 PM CDT Examination: Screening bilateral mammogram Exam Date: 02/08/2023 10:46 AM Clinical history: Routine screening. Comparison: 04/01/2015 Technique: Digital screening mammography of both breasts was performed. Breast tomosynthesis acquisitions were obtained and reviewed. This study was read with the assistance of a computer-aided detection system. Tissue density: There are scattered areas of fibroglandular density. Findings: No suspicious masses, malignant appearing calcifications, skin thickening or other abnormalities are present. No significant change from the prior exam. IMPRESSION: No suspicious mammographic findings. Recommendation: 1. Routine Screening, Bilateral Assessment: ACR BI-RADS 1 - NEGATIVE Ordered By: XIMENA WHEELER Interpreted By: Torres Rader MD, 02/08/2023 2:14 PM us Ximena Wheeler MD MAMMO Final Result from Last 3 Months or Most Recently Relevant to Health Maintenance Insurance [facility] Advance Directives * Full Code (Latest Code Status on File) Date Activated Date Inactivated Comments 06/21/2023 9:04 AM 06/21/2023 5:11 PM * Full Code Date Activated Date Inactivated Comments 06/19/2017 5:47 AM 06/19/2017 10:57 PM Care Teams Heart Doctor Relationship Specialty Start Date End Date Ximena Wheeler MD [facility]. [address] [address] PCP - General FAMILY PRACTICE 04/02/24 Laine Ortiz MD [facility]. [facility] [address] [place] [address] Jhony Chrome Cleaner CARDIOVASCULAR DISEASE 01/31/16
--- OUTSIDE RECORDS SUMMARY | 2025-03-04 02:14 | XMS_ITS | Encounter Summary ---
Author Organization [facility] Facility Care Team Providers Care Consumer Affairs Manager Name Role Phone Ramirez Wheeler MD Primary Care Provider [phone] Guillermina Kingston RN Unavailable [phone] Guillermina Kingston RN Unavailable [phone] Guillermina Kingston RN Unavailable [phone] Laine Ortiz MD Unavailable [phone] Jani Howard MD Unavailable [phone] Francie Waldron MD Unavailable [phone] Ramirez Rowe DPM Unavailable [phone] Carmina Dominguez [facility] Unavailable Gia Solano Primary Care Provider Jennifer Henderson RN Unavailable [phone] Laine Ortiz MD Primary Care Provider [phone] Suleman Escalante MD Primary Care Provider [phone] Encounter Details Date Type Department Care Team (Latest Contact Info) Description 10/30/2016 Orders Only [facility] CLINCONV Provider, MD Diana [address] [place] [address] Social History Tobacco Use Types Packs/Day Years Used Date Smoking Tobacco: Never Comments Unknown Sex and Gender Information Value Date Recorded Sex Assigned at Not on file 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 Historical Provider CV CARDIAC SERVICES PROCE DUREVE Final Result * CARDIOLOGY REPORT (11/02/2016 12:00 AM CDT) Anatomical Region Laterality Modality Other Narrative 11/02/2016 12:00 AM CDT Ordered by an unspecified provider. Historical Provider CV CARDIAC SERVICES PROCE DURES Final Result documented in this encounter Visit [...] documented as of this encounter Care Teams Consumer Affairs Manager Relationship Specialty Start Date End Date Ramirez Wheeler MD PCP - General Family Medicine 05/11/18 05/03/22 Gia Solano PA [address] [place] [address] [address] [place] [address] PCP - General Family Medicine 05/04/22 11/04/22 Laine Ortiz MD [address] [address] PCP - General Cardiology 03/02/23 06/10/23 [place] [address] [place] [address] PCP - General Family Medicine 06/11/23 09/23/23 Guillermina Kingston, SILVINO Hollow Handle Knife Assembler 11/23/18 12/12/18 Guillermina Kingston, RN Hollow Handle Knife Assembler 12/13/18 12/13/18 Guillermina Kingston, SILVINO Hollow Handle Knife Assembler 12/13/18 02/08/19 Laine Ortiz MD [address] [address] Referring Physician Cardiology 06/04/21 Jani Howard MD [facility]0 [facility] [address] [place] [address] Consulting Physician Pulmonary Disease 06/04/21 Francie Waldron MD [address] [facility] [address] [place] [address] Consulting Physician Gastroenterology 06/04/21 Ramirez Rowe, DPM [address] [facility] [address] [place] [address] Consulting Physician Podiatry 06/04/21 Carmina Dominguez RPh [address] [facility] [address] [place], [place] [id number] Pharmacist Pharmacy 02/11/22 02/22/22 Jennifer Henderson RN [address] [place] [address] Hollow Handle Knife Assembler 02/15/23 03/01/23 documented as of this encounter
--- OUTSIDE RECORDS SUMMARY | 2025-03-04 02:14 | XMS_ITS | Encounter Summary ---
Author Organization [facility] Facility Care Team Providers Care Platinum Smith Name Role Phone Ramirez Wheeler MD Primary Care Provider [phone] Guillermina Kingston RN Unavailable [phone] Guillermina Kingston RN Unavailable [phone] Guillermina Kingston RN Unavailable [phone] Laine Ortiz MD Unavailable [phone] Jani Howard MD Unavailable [phone] Francie Waldron MD Unavailable [phone] Ramirez Rowe DPM Unavailable [phone] Carmina Dominguez [facility] Unavailable Gia Solano Primary Care Provider Jennifer Henderson RN Unavailable [phone] Laine Ortiz MD Primary Care Provider [phone] Suleman Escalante MD Primary Care Provider [phone] Encounter Details Date Type Department Care Team (Latest Contact Info) Description 11/03/2016 Orders Only MMG CLINCONV Provider, MD Diana [address] [place] [address] Social History Tobacco Use Types Packs/Day Years Used Date Smoking Tobacco: Never Comments Unknown Sex and Gender Information Value Date Recorded Sex Assigned at Not on file 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 Historical Provider CV CARDIAC SERVICES PROCE DUREVE Final Result * CARDIOLOGY REPORT (11/04/2016 12:00 AM CDT) Anatomical Region Laterality Modality Other Narrative 11/04/2016 12:00 AM CDT Ordered by an unspecified [...] documented as of this encounter Care Teams Platinum Smith Relationship Specialty Start Date End Date Ramirez Wheeler MD PCP - General Family Medicine 05/11/18 05/03/22 Gia Solano PA [address] [place] [address] [address] [place] [address] PCP - General Family Medicine 05/04/22 11/04/22 Laine Ortiz MD [address] [address] PCP - General Cardiology 03/02/23 06/10/23 [place] [address] [place] [address] PCP - General Family Medicine 06/11/23 09/23/23 Guillermina Kingston, SILVINO Metal Control Coordinator 11/23/18 12/12/18 Guillermina Kingston, RN Metal Control Coordinator 12/13/18 12/13/18 Guillermina Kingston, SILVINO Metal Control Coordinator 12/13/18 02/08/19 Laine Ortiz MD [address] [address] Referring Physician Cardiology 06/04/21 aJni Howard MD [facility]0 [facility] [address] [place] [address] Consulting Physician Pulmonary Disease 06/04/21 Francie Waldron MD [address] [facility] [address] [place] [address] Consulting Physician Gastroenterology 06/04/21 Ramirez Rowe, DPM [address] [facility] [address] [place] [address] Consulting Physician Podiatry 06/04/21 Carmina Dominguez RPh [address] [facility] [address] [place], [place] [id number] Pharmacist Pharmacy 02/11/22 02/22/22 Jennifer Henderson RN [address] [facility] [place] [address] Metal Control Coordinator 02/15/23 03/01/23 documented as of this encounter
--- OUTSIDE RECORDS SUMMARY | 2025-03-04 02:14 | XMS_ITS | Clinical Summary ---
Author Organization [facility] Address [address] [place] [address] Care Team Providers Care Pci Security Consultant Name Role Phone Ramirez Wheeler MD Primary Care Provider [phone] Source Comments [facility],non-owned Affiliates and Associated Physician Practices is amultiple site organization consisting of ambulatory clinics and hospital sitesin [place], [place], [place] and [place]. This disclosure is being madepursuant to the Care Everywhere program and may not contain all information available regarding this patient. Last updated 18.[facility] Allergies Active Allergy Reactions Criticality Noted Date Comments Hydromorphone Skin Reactions Medium 02/02/2015 Metoclopramide Other Low 06/19/2014 hyperactivity, hyperactivity Nystatin Other Low 09/09/2014 Unable to take due to transplant, Unable to take due to transplant Penicillins Skin Reactions Medium 06/19/2014 Prochlorperazine Skin Reactions Medium 02/02/2015 Propoxyphene N-Apap Skin Reactions Medium 06/19/2014 Sufentanil Skin Reactions Medium 06/19/2014 Medications * This document contains information received from the source organization and may not represent a complete record from that organization. * Be aware that medications may not be up to date on this document. Alwaysverify current medications with the patient. Synthroid 300 MCG tablet Take 1 (one) tablet by mouth once daily Active amLODIPine (Norvasc) 5 MG tablet Take 1 (one) tablet by mouth every evening Active busPIRone (Buspar) 7.5 MG tablet Take 1 (one) tablet by mouth 3 times daily Active Cholecalcifero l (Vitamin D3) 25 MCG (1000 UT) TAKE 2 CAPSULES BY MOUTH WEEKLY WITH 61744 IU CAPSULE TO EQUAL 70,000 IU WEEKLY 02/04/20 24 Active cloNIDine (Catapres) 0.2 MG tablet Take 1 (one) tablet by mouth 2 times daily Active clopidogrel (plaVIX) 75 MG tablet Take 1 (one) tablet by mouth once daily Active cyclobenzaprin e (Flexeril) 10 MG tablet Take 1 (one) tablet by mouth 2 times daily as needed Active diphenoxylate- atropine (Lomotil) 2.5-0.025 MG tablet Take 1 (one) tablet by mouth every 6 hours as needed Active Baqsimi One Pack 3 MG/DOSE POWD as directed Active MAGNO CONTOUR NEXT TEST test strip Use 1 (one) strip 2 times daily 06/08/20 24 Active hyoscyamine (Levsin) 0.125 MG IR tablet Take 1 (one) tablet by mouth every 4 hours as needed Active HumaLOG KwikPen 100 UNIT/ML pen Inject subcutaneously 3 times daily before meals Active Cornell yfgn, pen Inject subcutaneously at bedtime Active BD Veo Insulin Syringe U/F 31G X 15/64 0.3 ML syringe USE 6 TIMES DAILY 03/22/20 24 Active nebivolol (Bystolic) 10 MG tablet Take 1 (one) tablet by mouth once daily Active nitroGLYCERIN (Nitrostat) 0.4 MG tablet Dissolve 1 (one) tablet under the tongue every 5 minutes as needed Active Creon 96895-086871 units capsule TAKE 4 CAPSULES BY MOUTH 4 TIMES A DAY Active Livalo 2 MG tablet Take 1 (one) tablet by mouth once daily 07/07/20 23 Active pregabalin (Lyrica) 100 MG capsule Take 1 (one) capsule by mouth two times daily at 4am and 4pm Active famotidine (Pepcid) 20 MG tablet TAKE 2 TABLETS BY MOUTH 2 TIMES A DAY. Active pantoprazole (Protonix) 40 MG packet Take 1 (one) packet by mouth 2 times daily Active aspirin (Aspirin) 325 MG tablet Take 1 (one) tablet by mouth once daily Active Continuous Glucose Sensor ([employer] G7 Sensor) MISCIndication s:Type 1 diabetes, controlled, with neuropathy (HCC) Use 1 Each every 10 days 3 Each 2 06/28/20 24 Active Continuous Glucose Fruit And Vegetable Inspector (Dexcom G7 Fruit And Vegetable Inspector) DEVIIndication s:Type 1 diabetes, controlled, with neuropathy (HCC) Use 1 device as directed 1 Each 07/07/20 24 Active vitamin D, ergocalciferol , (Drisdol) 1.25 MG (23798 UT) capsuleIndicat ions:Vitamin D Deficiency Take 1 (one) capsule by mouth every 3 days Reasons: Vitamin D Deficiency 24 capsule 1 11/21/19 25 Active ranolazine ER 12hr (Ranexa) 1000 MG tablet Take 1 (one) tablet by mouth 2 times daily Active ciclopirox (Penlac) 8 % solutionIndica tions:Fungal infection of nail Apply to affected area once daily 6.6 mL 3 02/20/20 25 Active ondansetron, disintegrating , (Zofran ODT) 8 MG tabletIndicati ons:Gastropare sis Take 1 (one) tablet by mouth every 8 hours as needed 60 tablet 1 02/20/20 25 Active ondansetron, disintegrating , (Zofran ODT) 8 MG tablet Take 1 (one) tablet by mouth every 8 hours as needed 025 Discontin ued(Reord er) Active Problems Problem Noted Date Diagnosed Date Chronic insomnia 11/12/2022 Spasm of back muscles 11/12/2022 Type 1 diabetes mellitus 11/12/2022 SBO (small bowel obstruction) 03/17/2022 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 02/09/2019 History of pancreatectomy 09/17/2018 Incomplete tear of right rotator cuff 09/07/2018 Other osteoporosis without current pathological fracture 09/07/2018 Peripheral polyneuropathy 05/16/2018 Gastroparesis 02/08/2018 Irritable bowel syndrome with diarrhea 7 Vitamin D deficiency 05/25/2017 Spinal stenosis in cervical region 10/02/2016 Sedative, hypnotic or anxiolytic dependence, unc omplicated 05/16/2015 Hyperlipidemia 05/16/2015 Hypothyroidism 02/02/2015 Exocrine pancreatic insufficiency 09/10/2014 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 09/10/2014 Obstructive sleep apnea 09/10/2014 Essential (primary) hypertension 09/10/2014 Presence of aortocoronary bypass graft 5 Postprocedural hypothyroidism 09/10/2014 Brief psychotic disorder 09/10/2014 Personal history of other en docrine, nutritional and metabolic disease 09/10/2014 Type 2 diabetes mellitus without complications 0 09/10/2014 Overview (11/01/2024): IMO 11/01/2024 H/O Graves' disease 09/10/2014 S/P CABG x 2 09/10/2014 Chronic pancreatitis 08/11/2012 Pancreas divisum 08/11/2012 Encounters Date Type Department Care Team Description 02/19/2025 2:20 PM CDT Office Visit [address], [address] [phone] Brigid Cano, WET PROCESS ASSISTANT HEAD MILLER-SCIENTIFIC LABORATORY SUPERVISOR Type 1 diabetes, controlled, with neuropathy (HCC) (Primary Dx); Fungal infection of nail; Gastroparesis 02/19/2025 Orders Only [facility] [address] [place] [address], [address] [phone] Maryuri Tran MD 02/19/2025 Travel 01/22/2025 Results Follow-Up [facility] [address] [place] [address], [address] [address] Brigid Cano APRN-SCIENTIFIC LABORATORY SUPERVISOR 12/22/2024 Telephone [facility] [address] [place] [address], [address] [phone] Maryuri Tran MD Medication Prior Auth Request 12/22/2024 Telephone [facility] [address] [place] [phone] Maryuri Tran MD Insurance Issue/question 12/22/2024 Telephone [facility] - Endocrinology [address] [place] [phone] Maryuri Tran MD Medication Prior Auth Request 12/22/2024 Telephone [facility]ocr[facility]ology [address] [place] [address] [address] [place] [address] Maryuri Tran MD Insurance Issue/question 12/04/2024 Telephone [facility] - Endocrinology [address] [place] [address], [address] [phone] Maryuri Tran MD Medication Issue; Medication Prior Auth Request from Last 3 Months Family History Medical History Relation Name Comments Cancer Brother BCC / SCC CAD (Coronary Artery Disease) Father CABG Cancer Father bladder; Status : Diabetes Father High Cholesterol Father Hypertension Father Cancer Maternal Grandmother CLL Dementia Mother Status: d Relation Name Status Comments Brother Father Maternal Grandmother Mother Social History Tobacco Use Types Packs/Day Years Used Date Smoking Tobacco: Never Tobacco Cessation:Counseling Given: Not Answered Alcohol Use Standard Drinks/Week Comments Yes 0 (1 standard drink = 0.6 oz pur e alcohol) Comments No Sex and Gender Information Value Date Recorded Sex Assigned at Not on file Legal Sex Female 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 Gender Identity Not on file Sexual Orientation Not on file Last Filed Vital Signs Vital Sign Reading Time Taken Comments Blood Pressure 120/80 02/19/2025 2:20 PM CDT Pulse 91 02/19/2025 2:20 PM CDT Temperature 36.5 C (97.7 F) 02/04/2015 5:46 PM CDT Respiratory Rate 20 02/04/2015 5:46 PM CDT Oxygen Saturation 96% 02/19/2025 2:20 PM CDT Inhaled Oxygen Concentration - - Weight 75 kg (165 lb 6.4 oz) 02/19/2025 2:20 PM CDT Height 160 cm (5' 3) 11/20/2024 11:35 AM CDT Body Mass Index 29.3 11/20/2024 11:35 AM CDT Plan of Treatment Upcoming Encounters Date Type Department Care Team (Late st Contact Info) Description 05/28/2025 3:20 PM CDT Office Visit [facility] - Endocrinology [address] [place] [address], [address] [phone] Brigid Cano, WET PROCESS ASSISTANT HEAD MILLER-SCIENTIFIC LABORATORY SUPERVISOR [address] [facility] ALINA [address] [place] [phone] 08/22/2025 3:40 PM BALLPOINT PEN ASSEMBLY MACHINE OPERATOR Office Visit [facility] - Endocrinology [address] [facility], [address] [place] [address] [place] [address] [facility] [address] [place] [address] Health Maintenance Due Date Last Done Comments COLOGUARD (AGES 45-75) - COLON CA SCREENING 1957 COLON MONITORING 1957 COLONOSCOPY - COLON CA SCREENING 1957 CT COLONOGRAPHY - COLON CA SCREENING 1957 Colorectal Cancer Screening 1957 FIT - COLON CA SCREENING 1957 FLEX SIG - COLON CA SCREENING 1957 MEDICARE AWV 12 MONTHS 1957 HIB VACCINE (1 of 1 - Risk 1-dose series) 08/15/1958 MENINGOCOCCAL GROUPS A/C/Y/W VACCINE (1 - Risk 2-dose series) 1959 MENINGOCOCCAL (Group B) VACCINE SHARED DECISION-MAKING (1 of 4 - Increased Risk) 1967 HEPATITIS C SCREENING 05/11/1975 DTAP/TDAP/TD VACCINES (1 - Tdap) 1976 PNEUMOCOCCAL VACCINE 50+ (1 of 2 - PCV) 1976 ZOSTER VACCINE (1 of 2) 2007 Respiratory Syncytial Virus (RSV) Vaccine Pt: or over 60 yrs (1 - Risk 60-74 years 1-dose series) 2017 COVID-19 VACCINE ( - 2023- season) 2024 07/28/2021, 09/18/2020, 08/21/2020 DIABETES RETINOPATHY SCREENING 06/28/2024 DIABETES-FOOT EXAM WITH MONOFILAMENT 06/28/2024 DEPRESSION SCREENING 08/02/2024 MAMMOGRAM 02/08/2025 02/08/2023, 01/30, 04/01/2015 INFLUENZA VACCINE (#1) 2025 , 05/14/2021, 05/13/2020, Additional history exists DIABETES-HGB A1C 08/30/2025 02/27/2025, , 11/20/2024, Additional history exists DIABETES - URINE PROTEIN SCREENING 11/08/2025 11/08/2024 DIABETES-SERUM CREATININE 02/19/20262024, 11/08/2024, 02/04/2015, Additional history exists BONE DENSITY TESTING Completed 02/08/2023, 04/01/20 15 HEPATITIS B VACCINE Aged Out No longe r eligible based on patient's age to complete this topic HPV VACCINE Aged Out No longer eligi ble based on patient's age to complete this topic Procedures Procedure Name Priority Date/Time Associated Diagnosis Comments HEMOGLOBIN A1C - POINT OF CARE (AMB) Routine 02/27/2025 1:35 PM CDT Type 1 diabetes, controlled, with neuropathy (HCC) GLUCOSE - POINT OF CARE (AMB) STL Routine 02/27/2025 1:34 PM CDT Type 1 diabetes, controlled, with neuropathy (HCC) HEMOGLOBIN A1C 02/19/2025 9:44 AM CDT VITAMIN D 25-HYDROXY 02/19/2025 9:44 AM CDT TSH 02/19/2025 9:44 AM CDT T4 FREE 02/19/2025 9:44 AM CDT T3 TOTAL 02/19/2025 9:44 AM CDT C-PEPTIDE 02/19/2025 9:44 AM CDT CBC W AUTO DIFFERENTIAL 02/19/2025 9:44 AM CDT FRUCTOSAMINE 02/19/2025 9:44 AM CDT GLUTAMIC ACID DECARBOXYLASE (PAUL) ANTIBODY 02/19/2025 9:44 AM CDT COMPREHENSIVE METABOLIC PANEL 02/19/2025 9:44 AM CDT CALCIUM/CREAT RATIO URINE RANDOM PANEL 02/19/2025 9:44 AM CDT LIPID PROFILE 02/19/2025 9:44 AM CDT MICROALB/CREAT RATIO URINE RANDOM PANEL 11/08/2024 7:28 AM CDT from Last 3 Months or Most Recently Relevant to Health Maintenance Results * HEMOGLOBIN A1C - POINT OF CARE (HgbA1C) (02/27/2025 1:35 PM CDT) [facility] Hem[facility] A1[facility] POCT 6.1 % Expiration Date 09/11/2026 Lot # [id number] QC Verified Yes Yes Blood BLOOD SPECIMEN / Unknown 02/27/2025 1:35 PM CDT [facility] - [facility] CARE ORDER KARYN Final Result * (ABNORMAL) GLUCOSE - POINT OF CARE (AMB) STL (02/27/2025 1:34 PM CDT) [facility] Glucose 136(A) 60 - 100 mg/dL Lot # [id number] Expiration Date 05/01/2026 QC Verified Yes Yes Blood BLOOD SPECIMEN / Unknown 02/27/2025 1:34 PM CDT [facility] - POINT OF CARE ORDER KARYN Final Result * (ABNORMAL) C-PEPTIDE (02/19/2025 9:44 AM CDT) [facility] C-Peptide 0.54(L) 0.80 - 3.85 ng/mL [facility] Comment: Test Performed at: [facility] [address] [place] [address] REYNA STILES MD 02/19/2025 9:44 AM CDT 02/19/2025 9:50 AM CDT Maryuri Tran MD LAB - CHEMISTRY ORDERABL ES Final Result Performing Organization Address [facility] Co de Phone Number [address] [address] * (ABNORMAL) HEMOGLOBIN A1C (02/19/2025 9:44 AM CDT) Hemoglobin A1c 6.2(H) <5.7 % of total Hgb [facility] Comment: For someone without known diabetes, a hemoglobin A1c value between 5.7% and 6.4% is consistent with prediabetes and should be confirmed with a follow-up test. For someone with known diabetes, a value <7% indicates that their diabetes is well controlled. A1c targets should be individualized based on duration of diabetes, age, comorbid conditions, and other considerations. This assay result is consistent with an increased risk of diabetes. Currently, no consensus exists regarding use of hemoglobin A1c for diagnosis of diabetes for children. Test Performed at: [facility] [address] REYNA STILES MD 02/19/2025 9:44 AM CDT 02/19/2025 9:50 AM CDT Maryuri Tran MD LAB - CHEMISTRY ORDERABL ES Final Result Performing Organization Address [facility] de Phone Number [facility] [address] [place] [address] * FRUCTOSAMINE (02/19/2025 9:44 AM CDT) Fructosamine 250 205 - 285 umol/L [facility] Comment: Test Performed at: [facility] [address] [place] [address] SMITH TOMLIN MD,PHD,[place] 02/19/2025 9:44 AM CDT 02/19/2025 9:50 AM CDT Maryuri Tran MD LAB - CHEMISTRY ORDERABL ES Final Result Performing Organization Address [facility] Co de Phone Number [address] [address] * VITAMIN D 25-HYDROXY (02/19/2025 9:44 AM CDT) Vitamin D, 25 Hydroxy 56 30 - 100 ng/mL [facility] Comment: Vitamin D Status 25-OH Vitamin D: Deficiency: <20 ng/mL Insufficiency: 20 - 29 ng/mL Optimal: > or = 30 ng/mL For 25-OH Vitamin D testing on patients on D2-supplementation and patients for whom quantitation of D2 and D3 fractions is required, the QuestAssureD(TM) 25-OH VIT D, (D2,D3), LC/MS/MS is recommended: order code 32544 (patients >2yrs). See Note 1 Note 1 For additional information, please refer to http://education.Technical Machine.Cloze/faq/VSV519 (This link is being provided for informational/ educational purposes only.) Test Performed at: [facility] [address] [place] [address] REYNA STILES MD 02/19/2025 9:44 AM CDT 02/19/2025 9:50 AM CDT us Maryuri Tran MD LAB - CHEMISTRY ORDERABL ES Final Result Performing Organization Address [facility]/ZIP Co de Phone Number [facility] [address] [place] [address] * GLUTAMIC ACID DECARBOXYLASE (PAUL) ANTIBODY (02/19/2025 9:44 AM CDT) Glutamic Acid Decarboxylase Antibody <5 <5 IU/mL [facility] Comment: This test was performed using the GAD65 JENNA method, which is standardized against the International reference preparation 97/550. Test Performed at: [facility] [address] [place] [address] MARE LOAIZA MD,PHD 02/19/2025 9:44 AM CDT 02/19/2025 9:50 AM CDT us Maryuri Tran MD LAB - SEROLOGY ORDERABLE S Final Result Performing Organization Address City/[facility]/ZIP Co de Phone Number [facility] [address] [place] [address] * (ABNORMAL) CBC WITH DIFFERENTIAL (02/19/2025 9:44 AM CDT) Pathologist [facility] White Blood Cell Count 11.7(H) 3.8 - 10.8 Thousand/ uL [facility] RBC 4.58 3.80 - 5.10 Million/u L [facility] Hemoglobin 13.6 11.7 - 15.5 g/dL [facility] Hematocrit 43.4 35.0 - 45.0 % [facility] MCV 94.8 80.0 - 100.0 fL [facility] MCH 29.7 27.0 - 33.0 pg [facility] MCHC 31.3(L) 32.0 - 36.0 g/dL [facility] Comment: For adults, a slight decrease in the calculated MCHC value (in the range of 30 to 32 g/dL) is most likely not clinically significant; however, it should be interpreted with caution in correlation with other red cell parameters and the patient's clinical condition. RDW 12.2 11.0 - 15.0 % [facility] Platelet Count 397 140 - 400 Thousand/ uL [facility] MPV 11.1 7.5 - 12.5 fL [facility] Neutrophil Absolute 5429 1500 - 7800 cells/uL [facility] Lymphocytes Absolute 4657(H) 850 - 3900 cells/uL [facility] Absolute Monocytes 761 200 - 950 cells/uL [facility] Eosinophils Absolute 749(H) 15 - 500 cells/uL [facility] Basophils Absolute 105 0 - 200 cells/uL [facility] Granulocytes % 46.4 % [facility] Lymphocytes % 39.8 % [facility] Monocytes % 6.5 % [facility] Eosinophils % 6.4 % [facility] Basophils % 0.9 % [facility] Comment: Test Performed at: [facility] [address] REYNA STILES MD 02/19/2025 9:44 AM CDT 02/19/2025 9:50 AM CDT us Maryuri Tran MD LAB - HEMATOLOGY ORDERAB LES Final Result [address] [address] * (ABNORMAL) COMPREHENSIVE METABOLIC PANEL (02/19/2025 9:44 AM CDT) [facility] Glucose 99 65 - 99 mg/dL [facility] Comment: Fasting reference interval BUN 18 7 - 25 mg/dL [facility] Creatinine 0.72 0.50 - 1.05 mg/dL [facility] eGFR by Cystatin C 92 > OR = 60 mL/min/1. 73m2 [facility] BUN/Creatinine Ratio SEE NOTE: 6 - 22 (calc) [facility] Comment: Not Reported: BUN and Creatinine are within reference range. Sodium 140 135 - 146 mmol/L [facility] Potassium 3.8 3.5 - 5.3 mmol/L [facility] Chloride 107 98 - 110 mmol/L [facility] CO2 28 20 - 32 mmol/L [facility] Calcium 9.0 8.6 - 10.4 mg/dL [facility] Protein Total 6.0(L) 6.1 - 8.1 g/dL [facility] Albumin 3.7 3.6 - 5.1 g/dL [facility] Globulin Total 2.3 1.9 - 3.7 g/dL (calc) [facility] Albumin/Globulin Ratio 1.6 1.0 - 2.5 (calc) [facility] Bilirubin Total 0.4 0.2 - 1.2 mg/dL [facility] Alkaline Phosphatase 128 37 - 153 U/L [facility] AST 18 10 - 35 U/L [facility] ALT 23 6 - 29 U/L [facility] Comment: Test Performed at: [facility] [address] REYNA STILES MD 02/19/2025 9:44 AM CDT 02/19/2025 9:50 AM CDT Maryuri Tran MD LAB - CHEMISTRY ORDERABL ES Final Result [address] [address] * CALCIUM/CREAT RATIO URINE RANDOM PANEL (02/19/2025 9:44 AM CDT) Calcium Random Urine 154 10 - 320 mg/g creat [facility] Calcium Random Urine 7.1 mg/dL [facility] Comment: Reference Range Not established Creatinine Urine 46 20 - 275 mg/dL [facility] Comment: Test Performed at: [facility] [address] [place] [address] REYNA STILES MD 02/19/2025 9:44 AM CDT 02/19/2025 9:50 AM CDT Maryuri Tran MD LAB - URINE CHEMISTRY OR DERABLES Final Result Performing Organization Address [facility] [place] [address] * (ABNORMAL) TSH (02/19/2025 9:44 AM CDT) Pathologist [facility] TSH 0.01(L) 0.40 - 4.50 mIU/L [facility] Comment: Test Performed at: [facility] [address] REYNA STILES MD 02/19/2025 9:44 AM CDT 02/19/2025 9:50 AM CDT Maryuri Tran MD LAB - CHEMISTRY ORDERABL ES Final Result Performing Organization Address [facility] de Phone Number [address] [address] * (ABNORMAL) T4 FREE (02/19/2025 9:44 AM CDT) [facility] T4 Free 1.9(H) 0.8 - 1.8 ng/dL [facility] Comment: Test Performed at: [facility] [address] REYNA STILES MD 02/19/2025 9:44 AM CDT 02/19/2025 9:50 AM CDT Maryuri Tran MD LAB - CHEMISTRY ORDERABL ES Final Result Performing Organization Address [facility] Co de Phone Number [address] [address] * T3 TOTAL (02/19/2025 9:44 AM CDT) [facility] T3 Total 109 76 - 181 ng/dL [facility] Comment: Test Performed at: [facility] [address] [place] [address] REYNA STILES MD 02/19/2025 9:44 AM CDT 02/19/2025 9:50 AM CDT us Maryuri Tran MD LAB - CHEMISTRY ORDERABL ES Final Result [address] [address] * (ABNORMAL) LIPID PROFILE (02/19/2025 9:44 AM CDT) Cholesterol 91 <200 mg/dL [facility] HDL Cholesterol 30(L) > OR = 50 mg/dL [facility] Triglycerides 75 <150 mg/dL [facility] LDL Calculated 45 mg/dL (calc) [facility] Comment: Reference range: <100 Desirable range <100 mg/dL for primary prevention; <70 mg/dL for patients with CHD or diabetic patients with > or = 2 CHD risk factors. LDL-C is now calculated using the Johnson-Whyte calculation, which is a validated novel method providing better accuracy than the Friedewald equation in the estimation of LDL-C. Johnson SAGASTUME et al. ANUM. 2013;310(19): 7989-7958 (http://education.Technical Machine.Cloze/faq/MAA148) CHOL/HDLC RATIO 3.0 <5.0 (calc) [facility] Non HDL Cholesterol 61 <130 mg/dL (calc) [facility] Comment: For patients with diabetes plus 1 major ASCVD risk factor, treating to a non-HDL-C goal of <100 mg/dL (LDL-C of <70 mg/dL) is considered a therapeutic option. Test Performed at: [facility] [address] REYNA STILES MD 02/19/2025 9:44 AM CDT 02/19/2025 9:50 AM CDT us Maryuri Tran MD LAB - CHEMISTRY ORDERABL ES Final Result [address] [address] * MICROALB/CREAT RATIO URINE RANDOM PANEL (11/08/2024 7:28 AM CDT) Creatinine Urine 90 20 - 275 mg/dL [facility] Microalbumin Urine 0.6 mg/dL [facility] Comment: Reference Range Not established Microalbumin/Creat inine Ratio 7 <30 mg/g creat [facility] Comment: The ADA defines abnormalities in albumin excretion as follows: Albuminuria Category Result (mg/g creatinine) Normal to Mildly increased <30 Moderately increased 30-299 Severely increased > OR = 300 The ADA recommends that at least two of three specimens collected within a 3-6 month period be abnormal before considering a patient to be within a diagnostic category. Test Performed at: [facility] [address] [facility] [place] [address] REYNA STILES MD 11/08/2024 7:28 AM CDT 11/08/2024 7:32 AM CDT Brigid Cano WET PROCESS ASSISTANT HEAD MILLER-SCIENTIFIC LABORATORY SUPERVISOR LAB - URINE CHEMISTRY ORD ERABLES Final Result Performing Organization Address City/State/[facility] Co de Phone Number [employer] [address] [place] [address] from Last 3 Months or Most Recently Relevant to Health Maintenance Insurance MEDICARE MEDICAID - OUT OF STATE [facility] Address: [facility] [address] [place] [address] [employer] Care Teams [employer] Security Consultant Relationship Specialty Start Date End Date Ramirez Wheeler MD [address] [place] [address] PCP - General 11/30/17
--- OUTSIDE RECORDS SUMMARY | 2025-03-04 02:14 | XMS_ITS | Referral Summary ---
Author Organization [facility] [address] [facility] Address [address] [place] [address] Care Team Providers Care Bundle Breaker Name Role Phone Laine Ortiz MD Unavailable [phone] Jani Howard MD Unavailable [phone] Francie Waldron MD Unavailable [phone] Ramirez Rowe DPM Unavailable [phone] Allergies Active Allergy Reactions Criticality Noted Date [...] 12 hr tabletIndications: Coronary artery disease of [place] artery of [place] heart with stable angina pectoris Take 1 tablet (1,000 mg total) by mouth 2 (two) times a day 180 tablet 3 01/01/20 Active insulin aspart (NovoLOG) 100 unit/mL (3 mL) pen for injectionIndicatio ns:Type 2 diabetes mellitus with diabetic autonomic neuropathy, with long-term current use of insulin ([facility]) INJECT SUBCUTANEOUSLY DIRECTED PER SLIDING SCALE, DO NOT EXCEED 45 UNITS DAILY 9 mL 1 01/01/20 Active Additional Information Patient taking differently: 0-5 Units subcutaneous 3 times daily with meals, INJECT SUBCUTANEOUSLY DIRECTED PER SLIDING SCALE, DO NOT EXCEED 45 UNITS [id number] 1 [id number] 2 [id number] 3 -117 4 [id number] 5 units, Reported on 03/21/[address] [...] 1 TABLET (75 MCG TOTAL) BY MOUTH ONCOLOGY SOCIAL WORK BEFORE BREAKFAST 90 tablet 03/27/20 22 Active levothyroxine (SYNTHROID) 200 mcg tabletIndications: Postprocedural hypothyroidism TAKE 1 TABLET (200 MCG TOTAL) BY MOUTH ONCOLOGY SOCIAL WORK BEFORE BREAKFAST 90 tablet 03/27/20 22 Active [...] 75 mg tabletIndications: Coronary artery disease of [place] artery of [place] heart with stable angina pectoris Take 1 [...] artery disease of n ative artery of [place] heart with stable angina pectoris 02/09/2019 Hypothyroidism 09/17/2018 Assessment & Plan (09/18/2018 9:20 AM GRIT REMOVAL OPERATOR): -2/2 HIRSCH as treatment for Graves disease -Check TSH -Cont Synthroid 300 Assessment & Plan (09/17/2018 5:15 AM GRIT REMOVAL OPERATOR): -2/2 HIRSCH as treatment for Graves disease -Check TSH -Cont Synthroid 300 STEFANY on CPAP 09/17/2018 Assessment & Plan (06/22/2022 3:19 PM GRIT REMOVAL OPERATOR): Patient continue to wear her CPAP at [...] over. 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/17/2018 Assessment & Plan (09/18/2018 9:19 AM GRIT REMOVAL OPERATOR): -s/p auto islet cell transplantation -Cont pancreatic enzymes, insulin as noted above Assessment & Plan (09/17/2018 5:22 AM GRIT REMOVAL OPERATOR): -s/p auto islet cell transplantation -Cont pancreatic enzymes, insulin as noted above Situational anxiety 09/17/2018 Assessment & Plan (09/18/2018 9:18 AM GRIT REMOVAL OPERATOR): -Cont home Effexor, Ativan PRN Assessment & Plan (09/17/2018 5:25 AM GRIT REMOVAL OPERATOR): -Cont home Effexor, Ativan PRN Incomplete tear of right rotator cuff 09/07/2018 Other osteoporosis without current pathological fracture 09/07/2018 Peripheral polyneuropathy 05/16/2018 Gastroparesis 02/08/2018 Type 2 diabetes mellitus wit h diabetic autonomic neuropathy, with long-term current use of insulin ([facility]) 02/08/2018 Hyperlipidemia, mixed 05/25/2017 Irritable bowel syndrome with diarrhea 7 Psychophysiologic insomnia 05/25/2017 Assessment & Plan (06/22/2022 3:19 PM GRIT REMOVAL OPERATOR): I have sent an order over for Ambien 5 mg. Vitamin D deficiency 05/25/2017 PAUL (generalized anxiety disorder) 01/22/2017 Gastroesophageal reflux disease without esophagi tis 01/22/2017 Osteoarthritis of spine with radiculopathy, cerv ical region 10/02/2016 Bipolar disorder 01/20/2016 Seizure disorder (CMS/HCC) 01/20/2016 Assessment & Plan (06/22/2022 3:20 PM GRIT REMOVAL OPERATOR): The patient has not had a seizure [...] artery disease of n ative artery of [place] heart with stable angina pectoris 12/07/2019 05/14/2020 Overview (12/07/2019): Last Assessment & Plan: -s/p CABG Continue ASA/Plavix/statin Pure hypercholesterolemia 06/15/2019 Essential hypertension 06/15/201905/14 Anemia 02/09/2019 05/14/2020 Pancreatic disease 02/09/2019 0 Thyroid dysfunction 02/09/2019 05/14/20 20 Disorder of pancreas 02/09/2019 020 Abdominal pain 09/17/2018 05/14/2020 Assessment & Plan (09/18/2018 9:18 AM GRIT REMOVAL OPERATOR): -Likely due to UTI and mild dehydration in setting of finicky bowel; improved with treatment of UTI, CT A/P from [facility] grossly negative continue PPI BID -Treatment of UTI as noted below -Pain control with home Tramadol. Avoid IV opiates if possible. Assessment & Plan (09/17/2018 5:29 AM GRIT REMOVAL OPERATOR): -Pt presenting with 1 week of mid [...] of symptoms. Obtain recent CT A/P from [facility] although may need repeat CT. -IV PPI BID -Check Cdiff, stool cx -Cont home Zofran PRN and Reglan 10 QID, however Reglan should not be used penitentiary -Treatment of UTI as noted below -Pain control with home Tramadol. Avoid IV opiates if possible. -CLD and advance diet as tolerated -Consider GI c/s if symptoms do not improve Diarrhea 09/17/2018 05/14/2020 Assessment & Plan (09/17/2018 5:18 AM GRIT REMOVAL OPERATOR): -Pt worsening of chronic diarrhea. Reports compliance with pancreatic enzymes. 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 Home insulin regimen Lantus 7 U QHS. 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 Home insulin regimen Lantus 7 U QHS. -Accuchecks + extra LDSSI Complicated UTI (urinary tract infection) 09/17/2018 05/14/2020 Assessment & Plan (09/18/2018 9:16 AM GRIT REMOVAL OPERATOR): -U/A c/f UTI at OSH s/p Levaquin [...] Rxs. Assessment & Plan (09/17/2018 5:27 AM GRIT REMOVAL OPERATOR): -U/A c/f UTI at OSH s/p Levaquin [...] disease invo lving coronary bypass graft of [place] heart without angina pectoris 01/22/2017 05/14/2020 Gastric [...] PPV23 2020,05/23/2019,05/16/2018,07/28,04/29/2016,10/07/2012 Tdap 05/25/2017 ZOSTER LIVE 10/07/2012 Social History Tobacco Use Types Packs/Day Years [...] week 07/20/2022 How often do you attend chur or nondenominational services? Never 07/20/2022 Do you belong to any clubs o r organizations such as confucianism groups, unions, fraternal or athletic groups, or [...] staff should administer the PHQ-9) 0 07/20/2022 [facility] - Occupational Stress [...] on file Legal Sex Female 2:48 AM GRIT REMOVAL OPERATOR Gender Identity Not on file Sexual [...] 11/05/2022 4:01 PM CDT Plan of Treatment Not on file Medical Devices Implanted Type Area Prorate Clerk Device Identifier Shelf Expiration Date Model / Serial / Lot Sensor N/A: Abdomen Wires N/A: Chest Wall Abilio,Screws Right: Leg Procedures Procedure Name Priority Date/Time Associated Diagnosis Comments EGFR Routine 03/29/2022 5:44 AM CDT LIPID PANEL Routine 12/12/2021 12:01 PM CDT ALBUMIN CREATININE RATIO, URINE Routine 12/12/2021 11:52 AM CDT HEMOGLOBIN A1C Routine 08/15/2019 11:36 AM GRIT REMOVAL OPERATOR Type 2 diabetes mellitus with diabetic autonomic [...] eGFR 97 mL/min/1. 73 m2 [facility] ([place]) Comment: Interpretive Data Reference Interval Normal >/= [...] 5:44 AM CDT 03/29/2022 5:50 AM CDT us Ariadna Wesley MD LAB BLOOD ORDERABLES Elyssa l Result [facility] [address] [facility] Department of Laboratories [place], [place] [id number] * (ABNORMAL) Lipid panel (12/12/2021 12:01 PM CDT) Cholesterol 124 30 - 199 mg/dL [facility] Comment: Interpretive Data Ages < or = [...] on 2018. Triglycerides 80 <=149 mg/dL [facility] Comment: Interpretive Data Ages < or = [...] on 2018. HDL 37(L) >=40 mg/dL [facility] Comment: Interpretive Data Ages < or = [...] 2018. LDL, calculated 71 <=129 mg/dL [facility] Comment: Interpretive Data Ages < or = [...] on 2018. Non-HDL Cholesterol 87 mg/dL [facility] Comment: Interpretive Data Ages < or = [...] revised on 2018. Chol/HDL ratio 3 [facility] Blood 12/12/2021 12:0 1 PM CDT 12/12/2021 12:15 PM CDT us Brani Salinas MD LAB BLOOD ORDERABLES Final Result [address] [address] * Albumin Creatinine Ratio, Urine (12/12/2021 11:52 AM CDT) Albumin Ur 13.8 mg/L [facility] Comment: Interpretive Data No reference range established. Current interpretive data was last revised 2018. Creatinine Ur 58.0 mg/dL [facility] Comment: Interpretive Data No reference range established. Current interpretive data was last revised 2018. Albumin Creatinine Ratio, Ur 24 1 - 29 mg/g [facility] Urine 12/12/2021 11:5 2 AM CDT 12/12/2021 12:13 PM CDT us Brain Salinas MD LAB URINE ORDERABLES Final Result Performing Organization Address [facility] Phone Number [address] [address] * (ABNORMAL) Hemoglobin A1c (08/15/2019 11:36 AM GRIT REMOVAL OPERATOR) Hemoglobin A1c % 5.7(H) 4.0 - 5.6 % [facility] Comment: ADA 2016 GUIDELINES: Initial Diagnostic Criteria HbA1c Result: Interpretation: <5.7% Normal 5.7-6.4% At risk for diabetes mellitus >=6.5% Consistent with diabetes mellitus Diabetes monitoring Target value (ADA Recommended) <7% Blood specimen (specimen) 08/15/2019 11:36 AM GRIT REMOVAL OPERATOR 08/15/2019 1:42 PM GRIT REMOVAL OPERATOR Narrative Resulting Agency Comment CLI us Gia ONTIVEROS LAB BLOOD ORDERABLES Fi nal Result Performing Organization Address [facility] de Phone Number [address] [address], [facility] [phone] * Dexa Axial Skeleton Bone Density 1 [...] Nelson M.D. NH:marilyn 04:35 PM 04:35 PM [facility] [EOD] Narrative [...] dairy products and caffeinated beverages. COMPARISON(S): None FINANCIAL SERVICES INTERNSHIP/MODEL: H[employer] Discovery SL (SN [id number]) FINDINGS: AP lumbar spine L1-L4 Total BMD is 0.887 g/ta5J-fzcro is -1.5 Left Hip Total BMD is 0.895 g/wb9I-rqmfx is -0.4 Neck BMD is 0.73 g/od4J-eyszy is -1.1 Fracture risk assessment (FRAX): 10 [...] dairy products and caffeinated beverages. COMPARISON(S): None FINANCIAL SERVICES INTERNSHIP/MODEL: [employer] Discovery SL (SN [id number]) FINDINGS: AP lumbar spine L1-L4 Total BMD is 0.887 g/sx0G-tekec is -1.5 Left Hip Total BMD is 0.895 g/pv8X-vildd is -0.4 Neck BMD is 0.73 g/dl6F-frvfc is -1.1 Fracture risk assessment (FRAX): 10 [...] PM: Deonte Nelson M.D. Deonte Nelson M.D. NH:nh 04:35 PM 04:35 PM [facility] [EOD] Ramirez Wheeler MD IMG DXA [...] signed by: Dr. Deonte Nelson nh/:04/01/2015 16:55:51 Clinic Assistant: Sita Sotelo RT (R)(M), [facility] letter sent: Normal Exam Reading location: BI-RADS: 1 Negative [EOD] Narrative 04/01/2015 4:56 PM CDT - KAYCEE BILAT SCREENING 3D W/CAD BILATERAL DIGITAL SCREENING [...] Note Provider, MD Diana - 12/17/2020 - KAYCEE BILAT SCREENING 3D W/CAD BILATERAL DIGITAL SCREENING [...] signed by: Dr. Deonte Nelson nh/:04/01/2015 16:55:51 Clinic Assistant: Sita DENIS (R)(M), [facility] letter sent: Normal Exam Reading location: BI-RADS: 1 Negative [EOD] us Ramirez Wheeler MD IMG MAMMO PROCEDURES Final Resu lt from Last 3 Months or Most Recently Relevant to Health Maintenance Insurance [facility] Advance Directives For more information, please contact: [phone] Documents on File Type Date Recorded Patient Supervisor Of Instruction Expl anation ADVANCE DIRECTIVE 06/13/2013 12:00 AM POW ER OF CHANNEL MARKETING MANAGER FINANCIAL/MEDICAL * Full Code (Latest Code Status on File) Date Activated Date Inactivated Comments 03/28/2022 9:01 AM 03/29/2022 5:21 PM * Full Code Date Activated Date Inactivated Comments 03/18/2022 12:09 AM 03/21/2022 7:25 PM * Full Code Date Activated Date Inactivated Comments 09/17/2018 4:42 AM 09/18/2018 6:53 PM Care Teams Bundle Breaker Relationship Specialty Start Date End Date Laine Ortiz MD [id number] [place] [address] Referring Physician Cardiology 06/04/21 Jani Howard MD [address] [place] [address] Consulting Physician Pulmonary Disease 06/04/21 Francie Waldron MD [address] [place] [address] Consulting Physician Gastroenterology 06/04/21 Ramirez Rowe, DPM [address] [place] [address] Consulting Physician Podiatry 06/04/21
--- OUTSIDE RECORDS SUMMARY | 2025-03-04 02:14 | XMS_ITS | Encounter Summary ---
Author Organization [facility] Facility Care Team Providers Care Preparing Box Tender Name Role Phone Ramirez Wheeler MD Primary Care Provider [phone] Guillermina Kingston RN Unavailable [phone] Guillermina Kingston RN Unavailable [phone] Guillermina Kingston RN Unavailable [phone] Laine Ortiz MD Unavailable [phone] Jani Howard MD Unavailable [phone] Francie Waldron MD Unavailable [phone] Ramirez Rowe DPM Unavailable [phone] Carmina Dominguez formerly [facility] Unavailable Gia Solano Primary Care Provider Jennifer Henderson RN Unavailable [phone] Laine Ortiz MD Primary Care Provider [phone] Suleman Escalante MD Primary Care Provider [phone] Encounter Details Date Type Department Care Team (Latest Contact Info) Description 01/20/2016 Orders Only [facility] CLINCONV Provider, MD Diana [address] [place] [address] Social History Tobacco Use Types Packs/Day Years Used Date Smoking Tobacco: Never Comments Unknown Sex and Gender Information Value Date Recorded Sex Assigned at Not on file Legal Sex Female 2:48 AM OLIVE PITTER Gender Identity Not on file Sexual Orientation Not on file documented as of this encounter Plan of Treatment Not on file documented as of this encounter Procedures Procedure Name Priority Date/Time Associated Diagnosis Comments SCAN - LABS 01/24/2016 12:00 AM CDT documented in this encounter Results * SCAN - LABS (01/24/2016 12:00 AM CDT) Narrative 01/24/2016 12:00 AM CDT Ordered by an unspecified [...] documented as of this encounter Care Teams Preparing Box Tender Relationship Specialty Start Date End Date Ramirez Wheeler MD PCP - General Family Medicine 05/11/18 05/03/22 Gia Solano PA [address] [place] [address] [address] [place] [address] PCP - General Family Medicine 05/04/22 11/04/22 Laine Ortiz MD [address] [place] [address] [address] [place] [address] PCP - General Cardiology 03/02/23 06/10/23 Suleman Escalante MD [address] [place] [address] [address] [place] [address] PCP - General Family Medicine 06/11/23 09/23/23 Guillermina Kingston, SILVINO Time Study Engineer 11/23/18 12/12/18 Guillermina Kingston, SILVINO Time Study Engineer 12/13/18 12/13/18 Guillermina Kingston, SILVINO Time Study Engineer 12/13/18 02/08/19 Laine Ortiz MD [address] [place] [address] Referring Physician Cardiology 06/04/21 Jani Howard MD [facility] [address] [address] Consulting Physician Pulmonary Disease 06/04/21 Francie Waldron MD [address] [place] [place] [address] [address] Consulting Physician Gastroenterology 06/04/21 Ramirez Rowe, MAURICIO [address] [place] [address] [address] Consulting Physician Podiatry 06/04/21 Carmina Dominguez, Matthew [address] [place] [address] [address] [place] [address] Pharmacist Pharmacy 02/11/22 02/22/22 Jennifer Henderson RN [address] [place] [address] Time Study Engineer 02/15/23 03/01/23 documented as of this encounter
[2025-03-04 03:18] LABS: Hematocrit 43.5 % (37.0-47.0); Hemoglobin 13.9 g/dL (12.0-15.0); Immature Granulocyte Percent A 0.3 % (0-0.5); Lymphocytes Absolute Auto 4.64 K/mm3 (0.9-3.2); Mean Corpuscular HGB Conc 32.0 g/dl (32-36); Mean Corpuscular Hemoglobin 28.9 pg (26-34); Mean Corpuscular Volume 90.4 fl (80-100); Nucleated Red Blood Cells Absolute Auto 0.000 K/mm3 (0.0-0.012); Nucleated Red Blood Cells Perc 0.0 % (0.0-0.2); Platelet Count Result 466 k/mm3 (150-375); Red Blood Count 4.81 M/mm3 (4.2-5.4); White Blood Count 13.5 K/mm3 (4.5-10.0)
--- OUTSIDE RECORDS SUMMARY | 2025-03-04 03:19 | XMS_ITS | Encounter Summary ---
Author Organization [facility] Facility Care Team Providers Care Skoog Machine Operator Name Role Phone Ramirez Wheeler MD Primary Care Provider [phone] Guillermina Kingston RN Unavailable [phone] Guillermina Kingston RN Unavailable [phone] Guillermina Kingston RN Unavailable [phone] Laine Ortiz MD Unavailable [phone] Jani Howard MD Unavailable [phone] Francie Waldron MD Unavailable [phone] Ramirez Rowe DPM Unavailable [phone] Carmina Dominguez [facility] Unavailable Gia Solano Primary Care Provider Jennifer Henderson RN Unavailable [phone] Laine Ortiz MD Primary Care Provider [phone] Suleman Escalante MD Primary Care Provider [phone] Encounter Details Date Type Department Care Team (Latest Contact Info) Description 11/19/2016 Orders Only [facility] CLINCONV Provider, MD Diana [address] [place] [address] Social History Tobacco Use Types Packs/Day Years Used Date Smoking Tobacco: Never Comments Unknown Sex and Gender Information Value Date Recorded Sex Assigned at Not on file Legal Sex Female 2:48 AM BYPRODUCTS MAKER Gender Identity Not on file Sexual Orientation [...] documented as of this encounter Care Teams Skoog Machine Operator Relationship Specialty Start Date End Date Ramirez Wheeler MD PCP - General Family Medicine 05/11/18 05/03/22 Gia Solano PA [address] [place] [address] [address] [place] [address] PCP - General Family Medicine 05/04/22 11/04/22 Laine Ortiz MD [address] [place] [address] [address] [place] [address] PCP - General Cardiology 03/02/23 06/10/23 Suleman Escalante MD [address] [place] [address] [address] [place] [address] PCP - General Family Medicine 06/11/23 09/23/23 Guillermina Kingston, SILVINO Photo Stylist 11/23/18 12/12/18 Guillermina Kingston, SILVINO Photo Stylist 12/13/18 12/13/18 Guillermina Kingston, SILVINO Photo Stylist 12/13/18 02/08/19 Laine Ortiz MD [address] [place] [address] Referring Physician Cardiology 06/04/21 Jani Howard MD [facility] [address] [address] Consulting Physician Pulmonary Disease 06/04/21 Francie Waldron MD [address] [place] [address] [address] Consulting Physician Gastroenterology 06/04/21 Ramirez Rowe, MAURICIO [address] [place] [address] [address] Consulting Physician Podiatry 06/04/21 Carmina Dominguez, Matthew [address] [place] [address] [address] [place] [address] Pharmacist Pharmacy 02/11/22 02/22/22 Jennifer Henderson RN [address] [facility] [place] [address] Photo Stylist 02/15/23 03/01/23 documented as of this encounter
--- OUTSIDE RECORDS SUMMARY | 2025-03-04 03:19 | XMS_ITS | Encounter Summary ---
Author Organization [facility] Facility Care Team Providers Care Fishing Line Winding Machine Operator Name Role Phone Ramirez Wheeler MD Primary Care Provider [phone] Guillermina Kingston RN Unavailable [phone] Guillermina Kingston RN Unavailable [phone] Guillermina Kingston RN Unavailable [phone] Laine Ortiz MD Unavailable [phone] Jani Howard MD Unavailable [phone] Francie Waldron MD Unavailable [phone] Ramirez Rowe DPM Unavailable [phone] Carmina Dominguez [facility] Unavailable Gia Solano Primary Care Provider Jennifer Henderson RN Unavailable [phone] Laine Ortiz MD Primary Care Provider [phone] Suleman Escalante MD Primary Care Provider [phone] Encounter Details Date Type Department Care Team (Latest Contact Info) Description 11/26/2016 Orders Only [facility] CLINCONV Provider, MD Diana [address] [place] [address] Social History Tobacco Use Types Packs/Day Years Used Date Smoking Tobacco: Never Comments Unknown Sex and Gender Information Value Date Recorded Sex Assigned at Not on file Legal Sex Female 2:48 AM WASTEWATER PROJECT MANAGER Gender Identity Not on file Sexual Orientation [...] documented as of this encounter Care Teams Fishing Line Winding Machine Operator Relationship Specialty Start Date End Date Ramirez Wheeler MD PCP - General Family Medicine 05/11/18 05/03/22 Gia Solano PA [address] [place] [address] [address] [place] [address] PCP - General Family Medicine 05/04/22 11/04/22 Laine Ortiz MD [address] [place] [address] [address] [place] [address] PCP - General Cardiology 03/02/23 06/10/23 Suleman Escalante MD [address] [place] [address] [address] [place], [place] [address] PCP - General Family Medicine 06/11/23 09/23/23 Guillermina Kingston, SILVINO Noteman 11/23/18 12/12/18 Guillermina Kingston RN Noteman 12/13/18 12/13/18 Guillermina Kingston, SILVINO Noteman 12/13/18 02/08/19 Laine Ortiz MD [address] [place] [address] [address] [place], [place] [address] Referring Physician Cardiology 06/04/21 Jani Howard MD [facility] [address] [address] Consulting Physician Pulmonary Disease 06/04/21 Francie Waldron MD [address] [place] [address] [address] [place] [address] Consulting Physician Gastroenterology 06/04/21 Ramirez Rowe, DPM [address] [place] [address] [facility] [address] [place] [address] Consulting Physician Podiatry 06/04/21 Carmina Dominguez, Matthew [address] [facility] [address] [place] [address] Pharmacist Pharmacy 02/11/22 02/22/22 Jennifer Henderson RN [address] [facility] [place] [address] Noteman 02/15/23 03/01/23 documented as of this encounter
--- OUTSIDE RECORDS SUMMARY | 2025-03-04 03:19 | XMS_ITS | Clinical Summary ---
Author Organization [facility] Address [facility] [place] [address] Care Team Providers Care Flat Optical Element Maker Name Role Phone Laine Ortiz MD Unavailable [phone] Ximena Wheeler MD Primary Care Provider [phone] Allergies Active Allergy Reactions Criticality Noted Date Comments Atorvastatin Myalgias Medium 10/16/2016 Cefuroxime Rash Medium 10/21/2018 Rash Hydromorphone Hives,Unknown Medium 02/02/2015 Isosorbide Nitrate Headache,Nausea and Vomiting Low 10/16/2016 Methylprednisolone Unknown 11/07/2018 Metoclopramide Dystonia,Other (see comment),Unknown Low 06/19/2014 hyperactivity Metoclopramide ok per Dr. Jenyn Benjamin. Metoclopramide is a home medication. 09-17-18 [...] DAY NEEDED FOR MUSCLE SPASM Active CREON 29809-433647 units CAPSULE ENTERIC COATED PARTICLES 7 tablets three times a day & take 4 tablets every night at bedtime Active Microlet Lancets Misc 3 (three) times daily. Active ranolazine ER 1000 MG TABLET SR 12 HR 12 hr tablet Take 1,000 mg by mouth 2 (two) times daily. Active Continuous Blood Gluc Box Order Person (DEXCOM G7 SURGICAL NURSE) DeviceIndications :Diabetes mellitus due to underlying condition with other circulatory complication, with long-term current use of insulin ([facility] HHS/HCC) 1 each by Does not apply route daily. 1 each Active Glucagon (GVOKE HYPOPEN 2-PACK) 1 MG/0.2ML Solution Auto-injectorIndi cations:Type 2 diabetes mellitus with hyperglycemia, with long-term current use of insulin ([facility] HHS/HCC) Inject 1 mg into the skin as needed. 0.4 mL 3 023 Active SEMGLEE, YFGN, 100 UNIT/ML Solution Pen-injectorIndic ations:Type 2 diabetes mellitus with hyperglycemia, with long-term current use of insulin ([facility]) Inject 10 Units into the [...] TAKE 2 CAPSULES BY MOUTH WEEKLY WITH 41288 IU CAPSULE TO EQUAL 70,000 IU WEEKLY Active Active Problems Problem Noted Date Diagnosed Date Neck pain 01/25/2025 Coronary artery disease of n ative artery of [place] heart with stable angina pectoris 12/07/2019 Overview (05/22/2020): Last Assessment & Plan: -s/p CABG Continue ASA/Plavix/statin Last Assessment & Plan: -s/p CABG Continue ASA/Plavix/statin Disorder of pancreas ([facility]) 02/09/2019 Anxiety 09/17/2018 Overview (08/22/2019): [...] hyperglycemia, with long-term current use of insulin ([facility]) 09/17/2018 Overview (08/22/2019): Last Assessment & Plan: -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 -Check A1c -Pt reports hypoglycemia despite [...] disease invo lving coronary bypass graft of [place] heart without angina pectoris 01/22/2017 Osteoarthritis of spine with radiculopathy, cerv ical region 10/02/2016 Ventricular tachycardia ([facility]) 2015 Osteopenia 01/20/2016 Hyperlipidemia 05/16/2015 Essential hypertension, benign 09/10/2014 Sedative, hypnotic or anxiol ytic dependence ([facility]) 09/10/2014 S/P CABG x 2 09/10/2014 Personal history of other en docrine, nutritional and metabolic disease 09/10/2014 Presence of aortocoronary bypass graft 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 09/10/2014 Brief psychotic disorder ([facility]) 09/10 Fracture of tibia 10/02/2013 Chronic pancreatitis ([facility]) 3 Pancreas divisum 08/11/2012 Arthritis 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 Osteopenia Seizure disorder ([facility]) Bleeding disorder Obstructive sleep apnea on CPAP Resolved Problems Problem Noted Date Diagnosed Date Resolved Date Essential hypertension 06/15/201911/11 Thyroid dysfunction 02/09/2019 05/26/20 20 Abdominal pain 09/17/2018 01/25/2025 Overview (08/22/2019): Last Assessment & Plan: -Likely due to UTI and mild dehydration in setting of finicky bowel; improved with treatment of UTI, CT A[facility]P from [facility] grossly negative continue PPI BID -Treatment of UTI as noted below -Pain control with home Tramadol. Avoid IV opiates if possible. Chest pain 06/19/2017 11/11/2022 Precordial pain 10/28/2016 11/11/2022 Gastric ulcer 04/29/2016 01/25/2025 Bipolar disorder ([facility]) 01/20/2016 01/25/2025 Graves disease 01/20/2016 05/26/2020 Type 1 diabetes mellitus wit h complication ([facility]) 01/20/2016 08/22/2019 Hypothyroidism 02/02/2015 05/26/2020 Overview (08/22/2019): Last Assessment & Plan: -2/2 HIRSCH as treatment for Graves disease -Check TSH -Cont Synthroid 300 Exocrine pancreatic insufficiency ([facility]) 09/10/2014 01/25/2025 Postprocedural hypothyroidism 09/10/2014 01/25/2025 Acute psychosis ([facility]) 09/09/2014 01/25/2025 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 Pure hypercholesterolemia Anemia 01/25/2025 Graves disease 05/31/2020 Asthma ([facility]) 01/12/2017 Hypothyroidism 05/26/2020 Gallbladder disease 01/26/20 Palpitations 11/11/2022 B12 deficiency 01/25/2025 Hypertension 06/08/2019 Encounters Date Type Department Care Team Description 02/08/2025 Results Follow-Up [facility], [address] [address] Neha Burkett RN USE ECHOCARDIOGRAM W CON 02/06/2025 12:52 PM CDT - 02/06/2025 11:59 PM CDT Hospital Encounter [facility] [place] [address] Laine Ortiz MD Discharge Disposition: Home or Self Care (Routine Discharge) 02/06/2025 Travel 01/25/2025 2:30 PM CDT Office Visit [facility], [address] [address] Martita Stratton, EDMUND Follow Up (8 mo); [...] 06/04/2021,1 ,05/16/2018,07/28,04/29/2016,10/07/2012 Tdap (Generic) 05/25/2017 Zoster (Zostavax) 35557 Unt/0.65Ml 10/07/2012 Family History Medical History Relation Comments Drug Abuse Daughter 1 former CABGx6 Father COPD Father Diabetes Father Hyperlipidemia Father Hypertension Father Kidney Disease Father Stent Cardiac Father Stroke Maternal Aunt CHF Maternal Grandfather chronic leukemia Maternal Grandfather pvd Maternal Grandfather Diabetes Maternal Grandmother NE Maternal Grandmother CABGx6 Maternal Uncle NE Maternal Uncle Stroke Maternal Uncle Alzheimer's disease [...] 37.1 C (98.7 F) 06/21/2023 7:37 AM PATTERN DRUM MAKER Respiratory Rate 19 06/21/2023 2:30 PM PATTERN DRUM MAKER Oxygen Saturation 96% 01/25/2025 2:20 PM CDT Inhaled Oxygen Concentration - - Weight 77.1 kg (170 lb) 01/25/2025 2:20 PM CDT Height 160 cm (5' 3) 01/25/2025 2:20 PM CDT Body Mass Index 30.11 01/25/2025 2:20 PM CDT Plan of Treatment Upcoming Encounters Date Type Department Care Team (Late st Contact Info) Description 07/30/2025 1:30 PM PATTERN DRUM MAKER Office Visit [facility], [facility] [address] [place] [address] Laine Ortiz MD [facility]. [facility] [address] [place], [place] [id number] Health Maintenance Due Date Last Done Comments [...] clearance Mixed hyperlipidemia Coronary artery disease of [place] artery of [place] heart with stable angina pectoris HEMOGLOBIN, GLYCOSYLATED Routine 07/13/2023 Type 2 diabetes mellitus with hyperglycemia, with long-term current use of insulin LIPID PANEL Routine 06/21/2023 6:31 AM PATTERN DRUM MAKER Coronary artery disease of [place] heart with stable angina pectoris Precordial pain [...] CDT Echocardiography Report Pat.Name: STEFF DUMONT Pat.ID: [id number] St.Date: 02/06/2025 Refer.: [id number] AMIRA CHILEL Y EWDPROV EWDPROV Exam Time: [...] 24.5 % Global Longitud 25.5 % Major Tenstrike (End 3.5 cm HR 73 bpm Left Atrial ED 9.3 ml/m2 SV 3 ml/m2 Major [place]strike (End 4.9 cm Left Ventricle Left Ventricula [...] Atrium LA a-p 3.84 cm (2.8-3.4)* Major Tenstrike (Sys 4.8 cm LA VOLBP 14.4 ml Major Tenstrike (Sys 4.93 cm End Diastolic A 0.8 [...] cm2 Cardiovascular 1.74 cm Right Atrium Major Tenstrike (Sys 4.33 cm RA Single Plane Right Atrium Ar 8.82 cm2 Volume (Systole 7.8 ml/m2 Right Ventricle RVIDd 1.87 cm/m2 RVIDd 3.18 cm Ygjjh-ss-jwfm v 0.94 MMODE Inferior Vena Cava IVC Diam 1.78 cm Tricuspid Valve Tricuspid annul 1.44 cm <Electronic Signature> 02/06/2025 08:23 PM Laine Ortiz M.D. Procedure Note Laine Ortiz MD - 02/07/2025 Echocardiography Report Pat.Name: STEFF DUMONT Pat.ID: [id number] .Date: 02/06/2025 : [id number] AMIRA Gleason EWDPROV EWDPROV Exam Time: 1:24:00 [...] 24.5 % Global Longitud 25.5 % Major Tenstrike (End 3.5 cm HR 73 bpm Left Atrial ED 9.3 ml/m2 SV 3 ml/m2 Major Tenstrike (End 4.9 cm Left Ventricle Left Ventricula [...] Atrium LA a-p 3.84 cm (2.8-3.4)* Major Tenstrike (Sys 4.8 cm LA VOLBP 14.4 ml Major Tenstrike (Sys 4.93 cm End Diastolic A 0.8 [...] cm2 Cardiovascular 1.74 cm Right Atrium Major Tenstrike (Sys 4.33 cm RA Single Plane Right Atrium Ar 8.82 cm2 Volume (Systole 7.8 ml/m2 Right Ventricle RVIDd 1.87 cm/m2 RVIDd 3.18 cm Dpuaq-ce-vofo v 0.94 MMODE Inferior Vena Cava IVC Diam 1.78 cm Tricuspid Valve Tricuspid annul 1.44 cm <Electronic Signature> 02/06/2025 08:23 PM Laine Ortiz M.D. Laine Ortiz MD ECHO Final Result * HEMOGLOBIN, GLYCOSYLATED (07/13/2023) HGB A1C 6.3 % [address] [place] 07/13/2023 Brain Salinas MD LABORATORY Final Result [address] [place] [address] [place] [place] [address], [place] [phone] * (ABNORMAL) LIPID PANEL (06/21/2023 6:31 AM PATTERN DRUM MAKER) CHOLESTEROL 131 <200 MG/DL 06/21/2023 7:30 AM [facility] TRIGLYCERIDES 111 <150 MG/DL 06/21/2023 7:30 AM [facility] HDL 39(L) >40.0 MG/DL 06/21/2023 7:30 AM [facility] LDL (CALCULATED) 70 <100 MG/DL 06/21/20 7:30 AM [facility] NON HDL CHOLESTEROL 92 <130 MG/DL 06/21 7:30 AM [facility] CHOL/HDL RATIO 3.4 0.0 - 4.5 06/21/2023 7:30 AM [facility] VLDL CALCULATION 22 5 - 55 MG/DL 06/21/2023 7:30 AM [facility] LIPID INTERPRETATION 06/21/2023 7:30 AM [facility] Comment: [facility] REPORT RECOMMENDATIONS: ADULT CHILD LOW RISK: CHOLESTEROL <200 <170 TRIGLYCERIDE <150 --- HDL >=60 --- LDL <100 <110 BORDERLINE: CHOLESTEROL 200-239 170-199 TRIGLYCERIDE 150-199 --- HDL 40-59 --- LDL 100-159 110-129 HIGH RISK: CHOLESTEROL >=240 >=200 TRIGLYCERIDE >=200 --- HDL <40 --- LDL >=160 >=130 06/21/2023 6:31 AM PATTERN DRUM MAKER Laine Ortiz MD LABORATORY Final Result [facility] [address] [place] [address], * BONE DENSITY/DEXA (02/08/2023 11:40 AM CDT) [...] Recently Relevant to Health Maintenance Insurance [facility] Advance Directives * Full Code (Latest Code Status on File) Date Activated Date Inactivated Comments 06/21/2023 9:04 AM 06/21/2023 5:11 PM * Full Code Date Activated Date Inactivated Comments 06/19/2017 5:47 AM 06/19/2017 10:57 PM Care Teams Flat Optical Element Maker Relationship Specialty Start Date End Date Ximena Wheeler MD [facility]. [address] [address] PCP - General FAMILY PRACTICE 04/02/24 Laine Ortiz MD [facility]. [facility] [address] [place] [address] Jhony Bricklayer'S Assistant CARDIOVASCULAR DISEASE 01/31/16
--- OUTSIDE RECORDS SUMMARY | 2025-03-04 03:20 | XMS_ITS | Encounter Summary ---
Author Organization [facility] Address [address] [place] [address] Care Team Providers Care Therapeutic Massage Technician Name Role Phone Ramirez Wheeler MD Primary Care Provider [phone] Laine Ortiz MD Unavailable [phone] Suleman Escalante MD Primary Care Provider [phone] None, Provider Primary Care Provider Unavaila [facility] Ramirez Wheeler MD Primary Care Provider [phone] Kike Avalos MD Primary Care Provider [phone] Ramirez Wheeler MD Primary Care Provider [phone] Encounter Details Date Type Department Care Team (Latest Contact Info) Description 02/08/2018 Abstract [facility] Misha Gonzalez MD Social History [...] st Contact Info) Description 07/30/2025 1:30 PM WORK ADJUSTMENT INSTRUCTOR Office Visit [facility], [place] [address] [place] [address] Laine Ortiz MD [facility]. [place] [place] [address] documented as of this encounter Visit Diagnoses Not on filedocumented in this encounter Care Teams Therapeutic Massage Technician Relationship Specialty Start Date End Date Ramirez Wheeler MD PCP - General FAMILY PRACTICE 01/31/16 08/01/22 Suleman Escalante MD [address] [place] [address] PCP - General FAMILY PRACTICE 08/02/22 05/30/23 Jenn Naranjo MD PCP - General [facility] PHYSICIAN SPECIALTY 05/31/23 06/27/23 Ramirez Wheeler MD PCP - General FAMILY PRACTICE 06/28/23 03/01/24 Kike Avalos MD [address] [place] [address] PCP - General INTERNAL MEDICINE 03/02/24 04/01/24 Raimrez Wheeler MD [address] [place] [address] PCP - General FAMILY PRACTICE 04/02/24 Laine Ortiz MD [facility]. [address] [place] [address] Jhony Ostomy Care Nurse CARDIOVASCULAR DISEASE 01/31/16 documented as of this encounter
--- OUTSIDE RECORDS SUMMARY | 2025-03-04 03:20 | XMS_ITS | Encounter Summary ---
Author Organization [facility] Facility Care Team Providers Care Dross Skimmer Name Role Phone Ramirez Wheeler MD Primary Care Provider [phone] Guillermina Kingston RN Unavailable [phone] Guillermina Kingston RN Unavailable [phone] Guillermina Kingston RN Unavailable [phone] Laine Ortiz MD Unavailable [phone] Jani Howard MD Unavailable [phone] Francie Waldron MD Unavailable [phone] Ramirez Rowe DPM Unavailable [phone] Carmina Dominguez [facility] Unavailable Gia Solano Primary Care Provider Jennifer Henderson RN Unavailable [phone] Laine Ortiz MD Primary Care Provider [phone] Suleman Escalante MD Primary Care Provider [phone] Encounter Details Date Type Department Care Team (Latest Contact Info) Description 11/25/2016 Orders Only [facility] CLINCONV Provider, MD Diana [address] [place] [address] Social History Tobacco Use Types Packs/Day Years Used Date Smoking Tobacco: Never Comments Unknown Sex and Gender Information Value Date Recorded Sex Assigned at Not on file Legal Sex Female 2:48 AM OTM CONSULTANT Gender Identity Not on file Sexual Orientation [...] documented as of this encounter Care Teams Dross Skimmer Relationship Specialty Start Date End Date Ramirez Wheeler MD PCP - General Family Medicine 05/11/18 05/03/22 Gia Solano PA [address] [place] [address] [address] [place] [address] PCP - General Family Medicine 05/04/22 11/04/22 Laine Ortiz MD [address] [place] [address] [address] [place] [address] PCP - General Cardiology 03/02/23 06/10/23 Suleman Escalante MD [address] [place] [address] [address] [place] [address] PCP - General Family Medicine 06/11/23 09/23/23 Guillermina Kingston, [facility] 11/23/18 12/12/18 Guillermina Kingston, [facility] 12/13/18 12/13/18 Guillermina Kingston, [facility] 12/13/18 02/08/19 Laine Ortiz MD [address] [place] [address] Referring Physician Cardiology 06/04/21 Jani Howard MD [facility] [address] [address] Consulting Physician Pulmonary Disease 06/04/21 Francie Waldron MD [address] [place] [address] [address] Consulting Physician Gastroenterology 06/04/21 Ramirez Rowe, MAURICIO [address] [place] [address] [address] Consulting Physician Podiatry 06/04/21 Carmina Dominguez, Matthew [address] [place] [address] [address] [place] [address] Pharmacist Pharmacy 02/11/22 02/22/22 Jennifer Henderson RN [address] [facility] [place] [address] Clinic Lpn 02/15/23 03/01/23 documented as of this encounter
--- OUTSIDE RECORDS SUMMARY | 2025-03-04 03:20 | XMS_ITS | Referral Summary ---
Author Organization [facility] [address] [facility] Address [address] [place] [address] Care Team Providers Care Carver Hand Name Role Phone Laine Ortiz MD Unavailable [phone] Jani Howard MD Unavailable [phone] Francie Waldron MD Unavailable [phone] Ramirez Rowe DPM Unavailable [phone] Allergies Active Allergy Reactions Criticality Noted Date [...] 12 hr tabletIndications: Coronary artery disease of [place] artery of [place] heart with stable angina pectoris Take 1 tablet (1,000 mg total) by mouth 2 (two) times a day 180 tablet 3 01/01/20 Active insulin aspart (NovoLOG) 100 unit/mL (3 mL) pen for injectionIndicatio ns:Type 2 diabetes mellitus with diabetic autonomic neuropathy, with long-term current use of insulin ([facility]) INJECT SUBCUTANEOUSLY DIRECTED PER SLIDING SCALE, DO NOT EXCEED 45 UNITS DAILY 9 mL 1 01/01/20 Active Additional Information Patient taking differently: 0-5 Units subcutaneous 3 times daily with meals, INJECT SUBCUTANEOUSLY DIRECTED PER SLIDING SCALE, DO NOT EXCEED 45 UNITS [id number] 1 [id number] 2 -488 3 [id number] 4 [id number] 5 units, Reported on 03/21/[address] [...] 1 TABLET (75 MCG TOTAL) BY MOUTH SALES REPRESENTATIVE GROCERIES BEFORE BREAKFAST 90 tablet 03/27/20 22 Active levothyroxine (SYNTHROID) 200 mcg tabletIndications: Postprocedural hypothyroidism TAKE 1 TABLET (200 MCG TOTAL) BY MOUTH SALES REPRESENTATIVE GROCERIES BEFORE BREAKFAST 90 tablet 03/27/20 22 Active [...] 75 mg tabletIndications: Coronary artery disease of [place] artery of [place] heart with stable angina pectoris Take 1 [...] artery disease of n ative artery of [place] heart with stable angina pectoris 02/09/2019 Hypothyroidism 09/17/2018 Assessment & Plan (09/18/2018 9:20 AM REEL CART OPERATOR): -2/2 HIRSCH as treatment for Graves disease -Check TSH -Cont Synthroid 300 Assessment & Plan (09/17/2018 5:15 AM REEL CART OPERATOR): -2/2 HIRSCH as treatment for Graves disease -Check TSH -Cont Synthroid 300 STEFANY on CPAP 09/17/2018 Assessment & Plan (06/22/2022 3:19 PM REEL CART OPERATOR): Patient continue to wear her CPAP [...] over. 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 Assessment & Plan (09/18/2018 9:19 AM REEL CART OPERATOR): -s/p auto islet cell transplantation -Cont pancreatic enzymes, insulin as noted above Assessment & Plan (09/17/2018 5:22 AM REEL CART OPERATOR): -s/p auto islet cell transplantation -Cont pancreatic enzymes, insulin as noted above Situational anxiety 09/17/2018 Assessment & Plan (09/18/2018 9:18 AM REEL CART OPERATOR): -Cont home Effexor, Ativan PRN Assessment & Plan (09/17/2018 5:25 AM REEL CART OPERATOR): -Cont home Effexor, Ativan PRN Incomplete tear of right rotator cuff 09/07/2018 Other osteoporosis without current pathological fracture 09/07/2018 Peripheral polyneuropathy 05/16/2018 Gastroparesis 02/08/2018 Type 2 diabetes mellitus wit h diabetic autonomic neuropathy, with long-term current use of insulin ([facility]) 02/08/2018 Hyperlipidemia, mixed 05/25/2017 Irritable bowel syndrome with diarrhea 7 Psychophysiologic insomnia 05/25/2017 Assessment & Plan (06/22/2022 3:19 PM REEL CART OPERATOR): I have sent an order over for Ambien 5 mg. Vitamin D deficiency 05/25/2017 PAUL (generalized anxiety disorder) 01/22/2017 Gastroesophageal reflux disease without esophagi tis 01/22/2017 Osteoarthritis of spine with radiculopathy, cerv ical region 10/02/2016 Bipolar disorder 01/20/2016 Seizure disorder (CMS/HCC) 01/20/2016 Assessment & Plan (06/22/2022 3:20 PM REEL CART OPERATOR): The patient has not had a [...] artery disease of n ative artery of [place] heart with stable angina pectoris 12/07/2019 05/14/2020 Overview (12/07/2019): Last Assessment & Plan: -s/p CABG Continue ASA/Plavix/statin Pure hypercholesterolemia 06/15/2019 Essential hypertension 06/15/201905/14 Anemia 02/09/2019 05/14/2020 Pancreatic disease 02/09/2019 0 Thyroid dysfunction 02/09/2019 05/14/20 20 Disorder of pancreas 02/09/2019 020 Abdominal pain 09/17/2018 05/14/2020 Assessment & Plan (09/18/2018 9:18 AM REEL CART OPERATOR): -Likely due to UTI and mild dehydration in setting of finicky bowel; improved with treatment of UTI, CT A/P from [facility] grossly negative continue PPI BID -Treatment of UTI as noted below -Pain control with home Tramadol. Avoid IV opiates if possible. Assessment & Plan (09/17/2018 5:29 AM REEL CART OPERATOR): -Pt presenting with 1 week of [...] of symptoms. Obtain recent CT A/P from [facility] although may need repeat CT. -IV PPI BID -Check Cdiff, stool cx -Cont home Zofran PRN and Reglan 10 QID, however Reglan should not be used fci -Treatment of UTI as noted below -Pain control with home Tramadol. Avoid IV opiates if possible. -CLD and advance diet as tolerated -Consider GI c/s if symptoms do not improve Diarrhea 09/17/2018 05/14/2020 Assessment & Plan (09/17/2018 5:18 AM REEL CART OPERATOR): -Pt worsening of chronic diarrhea. Reports compliance with pancreatic enzymes. 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 Home insulin regimen Lantus 7 U QHS. 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 Home insulin regimen Lantus 7 U QHS. -Accuchecks + extra LDSSI Complicated UTI (urinary tract infection) 09/17/2018 05/14/2020 Assessment & Plan (09/18/2018 9:16 AM REEL CART OPERATOR): -U/A c/f UTI at OSH s/p [...] Rxs. Assessment & Plan (09/17/2018 5:27 AM REEL CART OPERATOR): -U/A c/f UTI at OSH s/p [...] disease invo lving coronary bypass graft of [place] heart without angina pectoris 01/22/2017 05/14/2020 Gastric [...] How often do you attend chur or adventist services? Never 07/20/2022 Do you belong to [...] staff should administer the PHQ-9) 0 07/20/2022 [facility] - Occupational [...] on file Legal Sex Female 2:48 AM REEL CART OPERATOR Gender Identity Not on file Sexual [...] on file Medical Devices Implanted Type Area Family Preservation Caseworker Device Identifier Shelf Expiration Date Model / Serial / Lot Sensor N/A: Abdomen Wires N/A: Chest Wall Abilio,Screws Right: Leg Procedures Procedure Name Priority Date/Time Associated Diagnosis Comments EGFR Routine 03/29/2022 5:44 AM CDT LIPID PANEL Routine 12/12/2021 12:01 PM CDT ALBUMIN CREATININE RATIO, URINE Routine 12/12/2021 11:52 AM CDT HEMOGLOBIN A1C Routine 08/15/2019 11:36 AM REEL CART OPERATOR Type 2 diabetes mellitus with diabetic [...] LAB BLOOD ORDERABLES Elyssa l Result [facility] Department of Laboratories [place], [place] [id number] * (ABNORMAL) Lipid panel (12/12/2021 12:01 PM [...] revised on 2018. Triglycerides 80 <=149 mg/dL [facility] Comment: Interpretive Data Ages < or [...] PM CDT 12/12/2021 12:15 PM CDT us Brain Salinas MD LAB BLOOD ORDERABLES Final Result [address] [address] * Albumin Creatinine Ratio, Urine (12/12/2021 11:52 AM CDT) Albumin Ur 13.8 mg/L [facility] Comment: Interpretive Data No reference range established. Current interpretive data was last revised 2018. Creatinine Ur 58.0 mg/dL [facility] Comment: Interpretive Data No reference range established. Current interpretive data was last revised 2018. Albumin Creatinine Ratio, Ur 24 1 - 29 mg/g [facility] Urine 12/12/2021 11:5 2 AM CDT 12/12/2021 12:13 PM CDT us Brain Salinas MD LAB URINE ORDERABLES Final Result Performing Organization Address [facility] Phone Number [address] [address] * (ABNORMAL) Hemoglobin A1c (08/15/2019 11:36 AM REEL CART OPERATOR) Hemoglobin A1c % 5.7(H) 4.0 - 5.6 % [facility] Comment: ADA 2016 GUIDELINES: Initial Diagnostic Criteria HbA1c Result: Interpretation: <5.7% Normal 5.7-6.4% At risk for diabetes mellitus >=6.5% Consistent with diabetes mellitus Diabetes monitoring Target value (ADA Recommended) <7% Blood specimen (specimen) 08/15/2019 11:36 AM REEL CART OPERATOR 08/15/2019 1:42 PM REEL CART OPERATOR Narrative Resulting Agency Comment CLI us Gia ONTIVEROS LAB BLOOD ORDERABLES Fi nal Result Performing Organization Address [facility] de Phone Number [address] [address], [facility] [phone] * Dexa Axial Skeleton Bone Density 1 [...] dairy products and caffeinated beverages. COMPARISON(S): None PARKER/MODEL: Hologic Discovery SL (SN [id number]) FINDINGS: AP lumbar spine L1-L4 Total BMD is 0.887 g/cv2F-jihke is -1.5 Left Hip Total BMD is 0.895 g/rv9P-uflvj is -0.4 Neck BMD is 0.73 g/vz0S-qzvxm is -1.1 Fracture risk assessment (FRAX): 10 [...] dairy products and caffeinated beverages. COMPARISON(S): None PARKER/MODEL: [employer] Discovery SL (SN [id number]) FINDINGS: AP lumbar spine L1-L4 Total BMD is 0.887 g/bj0A-phcsu is -1.5 Left Hip Total BMD is 0.895 g/jj8B-kqwnn is -0.4 Neck BMD is 0.73 g/rv2K-nryhn is -1.1 Fracture risk assessment (FRAX): 10 [...] Nelson M.D. NH:nh 04:35 PM 04:35 PM [facility] [EOD] Ramirez Wheeler MD IMG DXA [...] signed by: Dr. Deonte Nelson nh/:04/01/2015 16:55:51 Group Fitness Assistant Department Head: Sita Sotelo RT (R)(M), [facility] letter sent: Normal Exam Reading location: [...] signed by: Dr. Deonte Nelson nh/:04/01/2015 16:55:51 Group Fitness Assistant Department Head: Sita DENIS (R)(M), [facility] letter sent: Normal Exam Reading location: BI-RADS: 1 Negative [EOD] us Ramirez Wheeler MD IMG MAMMO PROCEDURES Final Resu lt from Last 3 Months or Most Recently Relevant to Health Maintenance Insurance [facility] Advance Directives For more information, please contact: [phone] Documents on File Type Date Recorded Patient Resilient Tile Installer Expl anation ADVANCE DIRECTIVE 06/13/2013 12:00 AM POW ER OF [employer] FINANCIAL/MEDICAL * Full Code (Latest Code Status on File) Date Activated Date Inactivated Comments 03/28/2022 9:01 AM 03/29/2022 5:21 PM * Full Code Date Activated Date Inactivated Comments 03/18/2022 12:09 AM 03/21/2022 7:25 PM * Full Code Date Activated Date Inactivated Comments 09/17/2018 4:42 AM 09/18/2018 6:53 PM Care Teams Carver Hand Relationship Specialty Start Date End Date Laine Ortiz MD [address] [place] [address] Referring Physician Cardiology 06/04/21 Jani Howard MD [address] [facility] [address] [place] [address] Consulting Physician Pulmonary Disease 06/04/21 Francie Waldron MD [address] [facility] [address] [place] [address] Consulting Physician Gastroenterology 06/04/21 Ramirez Rowe, DPM [address] [facility] [address] [place] [address] Consulting Physician Podiatry 06/04/21
--- OUTSIDE RECORDS SUMMARY | 2025-03-04 03:20 | XMS_ITS | Encounter Summary ---
Author Organization [facility] Address [address] [place] [address] Care Team Providers Care Nougat Cutter Machine Name Role Phone Ramirez Wheeler MD Primary Care Provider [phone] Laine Ortiz MD Unavailable [phone] Suleman Escalante MD Primary Care Provider [phone] None, Provider Primary Care Provider Unavaila [facility] Ramirez Wheeler MD Primary Care Provider [phone] Kike Avalos MD Primary Care Provider [phone] Ramirez Wheeler MD Primary Care Provider [phone] Encounter Details Date Type Department Care Team (Late st Contact Info) Description 11/03/2016 Abstract [facility] AT [address] [address] Mihir Rosales MA Social History Tobacco Use [...] st Contact Info) Description 07/30/2025 1:30 PM MACHINE MOLDER Office [facility] [address] [place] [address] Laine Ortiz MD Three [facility]. [address] [place], [place] [id number] documented as of this encounter Procedures Procedure [...] on filedocumented in this encounter Care Teams Nougat Cutter Machine Relationship Specialty Start Date End Date Ramirez Wheeler MD PCP - General FAMILY PRACTICE 01/31/16 08/01/22 Suleman Escalante MD [address] [place] [address] PCP - General FAMILY PRACTICE 08/02/22 05/30/23 None, MD Jenn PCP - General UNKNOWN PHYSICIAN SPECIALTY 05/31/23 06/27/23 Ramirez Wheeler MD PCP - General FAMILY PRACTICE 06/28/23 03/01/24 Kike [place] [address] PCP - General INTERNAL MEDICINE 03/02/24 04/01/24 Ramirez Wheeler MD [address] [facility] [place] [address] PCP - General FAMILY PRACTICE 04/02/24 Laine Ortiz MD [facility] [address] [place] [address] Jhony Aquatic Centre Manager CARDIOVASCULAR DISEASE 01/31/16 documented as of this encounter
--- OUTSIDE RECORDS SUMMARY | 2025-03-04 03:20 | XMS_ITS | Encounter Summary ---
Author Organization [facility] Address [address] [place] [address] Care Team Providers Care Gypsum Block Setter Name Role Phone Laine Ortiz MD Unavailable Kike Avalos MD Primary Care Provider [phone] Ramirez Wheeler MD Primary Care Provider [phone] Reason for Visit * Reason Onset Date Comments Referral 03/10/2024 Encounter Details Date Type Department Care Team (Late st Contact Info) Description 03/10/[address] [address] Ramirez Wheeler MD [address] [facility] [address] [place] [address] Referral Social History Tobacco Use Types Packs/Day [...] Cardiology under 11/2022 Needing an Referral Under [id number] Level 3 Eval/Diagnostic/Treatment 12 visits again (please) DX I25.118, T94.39 and R07.2 Date of Service 04/19/2024 Please fax to [phone] Any questions please free to contact Magali Michele documented in this encounter Plan of Treatment Upcoming Encounters Date Type Department Care Team (Late st Contact Info) Description 07/30/2025 1:30 PM REED POLISHER Office Visit [facility] [address] [place], [place] [phone] Laine Ortiz MD Three [facility]. [address] [place] [address] documented as of this encounter Visit Diagnoses Not on filedocumented in this encounter Care Teams Gypsum Block Setter Relationship Specialty Start Date End Date Kike Avalos MD [address] [place] [address] PCP - General INTERNAL MEDICINE 03/02/24 04/01/24 Ramirez Wheeler MD [address] [place] [address] PCP - General FAMILY PRACTICE 04/02/24 Laine Ortiz MD [facility]. [facility] [address] [place] [address] [place] Salon Stylist CARDIOVASCULAR DISEASE 01/31/16 documented as of this encounter
--- OUTSIDE RECORDS SUMMARY | 2025-03-04 03:20 | XMS_ITS | Encounter Summary ---
Author Organization [facility] Address [address] [place] [address] Care Team Providers Care Dewatering Filtering Supervisor Name Role Phone Ramirez Wheeler MD Primary Care Provider [phone] Laine Ortiz MD Unavailable [phone] Suleman Escalante MD Primary Care Provider [phone] None, Provider Primary Care Provider Unavaila [facility] Ramirez Wheeler MD Primary Care Provider [phone] Kike Avalos MD Primary Care Provider [phone] Ramirez Wheeler MD Primary Care Provider [phone] Encounter Details Date Type Department Care Team (Late st Contact Info) Description 03/31/2018 [facility] at [address] [address] Mihir Rosales MA Social History Tobacco Use [...] st Contact Info) Description 07/30/2025 1:30 PM CASEWORKER PROTECTIVE SERVICES Office Visit [facility] [address] [facility] [address], [address] [place] [address] Laine Ortiz MD [address] [facility] [address] [place] [address] documented as of this encounter Procedures Procedure [...] on filedocumented in this encounter Care Teams Dewatering Filtering Supervisor Relationship Specialty Start Date End Date Ramirez Wheeler MD PCP - General FAMILY PRACTICE 01/31/16 08/01/22 Suleman Escalante MD [address] [facility] [address] [place] [address] PCP - General FAMILY PRACTICE 08/02/22 05/30/23 Jenn Naranjo MD PCP - General UNKNOWN PHYSICIAN SPECIALTY 05/31/23 06/27/23 Ramirez Wheeler MD PCP - General FAMILY PRACTICE 06/28/23 03/01/24 Kike Avalos MD [address] [place] [address] PCP - General INTERNAL MEDICINE 03/02/24 04/01/24 Ramirez Wheeler MD [address] [place] [address] PCP - General FAMILY PRACTICE 04/02/24 Laine Ortiz MD Three [facility]. [address] [place] [address] Jhony Disease Intervention Specialist CARDIOVASCULAR DISEASE 01/31/16 documented as of this encounter
--- OUTSIDE RECORDS SUMMARY | 2025-03-04 03:20 | XMS_ITS | Encounter Summary ---
Author Organization [facility] Address [address] [facility] [place] [address] Care Team Providers Care Financial Sales Advisor Name Role Phone Ramirez Wheeler MD Primary Care Provider [phone] Encounter Details Date Type Department Care Team (Late Contact Info) Description 01/22/2025 Results Follow-Up [facility] - Endocrinology [address] [place] [phone] Brigid Cano, FARM EQUIPMENT MAINTENANCE SUPERVISOR-TRACK DRESSER [address] [place] [phone] Social History Tobacco Use Types Packs/Day Years Used Date Smoking Tobacco: Never Alcohol Use Standard Drinks/Week Comments Yes 0 (1 standard drink = 0.6 oz pur e alcohol) Comments No Sex and Gender Information Value Date Recorded Sex Assigned at Not on file Legal Sex Female 6:01 PM FLIGHT SERVICE SPECIALIST Gender Identity Not on file Sexual Orientation Not on file documented as of this encounter Plan of Treatment Upcoming Encounters Date Type Department Care Team (Late Contact Info) Description 05/28/2025 3:20 PM CDT Office Visit [facility] - Endocrinology [address] [place] [phone] Brigid Cano, FARM EQUIPMENT MAINTENANCE SUPERVISOR-TRACK DRESSER [id number] [place] [phone] 08/22/2025 3:40 PM FLIGHT SERVICE SPECIALIST Office Visit [facility] Medical [facility] - Endocrinology [id number] [place] [address], [address] [address] [place] [address] [address] documented as of this encounter Visit Diagnoses Not on filedocumented in this encounter Care Teams Financial Sales Advisor Relationship Specialty Start Date End Date Ramirez Wheeler MD [address] [facility] [address] PCP - General 11/30/17 documented as of this encounter
--- OUTSIDE RECORDS SUMMARY | 2025-03-04 03:20 | XMS_ITS | Encounter Summary ---
Author Organization [facility] Care Team Providers Care Golf Club Repairer Name Role Phone Ramirez Wheeler MD Primary Care Provider [phone] Guillermina Kingston RN Unavailable [phone] Guillermina Kingston RN Unavailable [phone] Guillermina Kingston RN Unavailable [phone] Laine Ortiz MD Unavailable [phone] Jani Howard MD Unavailable [phone] Francie Waldron MD Unavailable [phone] Ramirez Rowe DPM Unavailable [phone] Carmina Dominguez [facility] Unavailable Gia Solano Primary Care Provider Jennifer Henderson RN Unavailable [phone] Laine Ortiz MD Primary Care Provider [phone] Suleman Escalante MD Primary Care Provider [phone] Encounter Details Date Type Department Care Team (Latest Contact Info) Description 11/03/2016 Orders Only [facility] Provider, MD Diana [address] [place] [address] Social History Tobacco Use Types Packs/Day Years Used Date Smoking Tobacco: Never Comments Unknown Sex and Gender Information Value Date Recorded Sex Assigned at Not on file Legal Sex Female 2:48 AM FILLING CARRIER Gender Identity Not on file Sexual Orientation [...] documented as of this encounter Care Teams Golf Club Repairer Relationship Specialty Start Date End Date Ramirez Wheeler MD PCP - General Family Medicine 05/11/18 05/03/22 Gia Solano PA [address] [place] [address] [address] [place] [address] PCP - General Family Medicine 05/04/22 11/04/22 Laine Ortiz MD [address] [address] PCP - General Cardiology 03/02/23 06/10/23 [place] [address] [place] [address] PCP - General Family Medicine 06/11/23 09/23/23 Guillermina Kingston, SILVINO Wicker Worker 11/23/18 12/12/18 Guillermina Kingston, RN Wicker Worker 12/13/18 12/13/18 Guillermina Kingston, SILVINO Wicker Worker 12/13/18 02/08/19 Laine Ortiz MD [address] [address] Referring Physician Cardiology 06/04/21 Jani Howard MD [facility] [facility] [address] [place] [address] Consulting Physician Pulmonary Disease 06/04/21 Francie Waldron MD [address] [facility] [address] [place] [address] Consulting Physician Gastroenterology 06/04/21 Ramirez Rowe, DPM [address] [facility] [address] [place] [address] Consulting Physician Podiatry 06/04/21 Carmina Dominguez RPh [address] [facility] [address] [place], [place] [id number] Pharmacist Pharmacy 02/11/22 02/22/22 Jennifer Henderson RN [address] [facility] [place] [address] Wicker Worker 02/15/23 03/01/23 documented as of this encounter
--- OUTSIDE RECORDS SUMMARY | 2025-03-04 03:20 | XMS_ITS | Encounter Summary ---
Author Organization [facility] Facility Care Team Providers Care Jukebox Checker Name Role Phone Ramirez Wheeler MD Primary Care Provider [phone] Guillermina Kingston RN Unavailable [phone] Guillermina Kingston RN Unavailable [phone] Guillermina Kingston RN Unavailable [phone] Laine Ortiz MD Unavailable [phone] Jani Howard MD Unavailable [phone] Francie Waldron MD Unavailable [phone] Ramirez Rowe DPM Unavailable [phone] Carmina Dominguez [facility] Unavailable Gia Solano Primary Care Provider Jennifer Henderson RN Unavailable [phone] Laine Ortiz MD Primary Care Provider [phone] Suleman Escalante MD Primary Care Provider [phone] Encounter Details Date Type Department Care Team (Latest Contact Info) Description 01/20/2016 Orders Only [facility] CLINCONV Provider, MD Diana [address] [place] [address] Social History Tobacco Use Types Packs/Day Years Used Date Smoking Tobacco: Never Comments Unknown Sex and Gender Information Value Date Recorded Sex Assigned at Not on file Legal Sex Female 2:48 AM CLOTHING MAN Gender Identity Not on file Sexual Orientation [...] documented as of this encounter Care Teams Jukebox Checker Relationship Specialty Start Date End Date Ramirez Wheeler MD PCP - General Family Medicine 05/11/18 05/03/22 Gia Solano PA [address] [place] [address] [address] [place] [address] PCP - General Family Medicine 05/04/22 11/04/22 Laine Ortiz MD [address] [place] [address] [address] [place] [address] PCP - General Cardiology 03/02/23 06/10/23 Suleman Escalante MD [address] [place] [address] [address] [place] [address] PCP - General Family Medicine 06/11/23 09/23/23 Guillermina Kingston, SILVINO Academic Director 11/23/18 12/12/18 Guillermina Kingston, SILVINO Academic Director 12/13/18 12/13/18 Guillermina Kingston, SILVINO Academic Director 12/13/18 02/08/19 Laine Ortiz MD [address] [place] [address] Referring Physician Cardiology 06/04/21 Jani Howard MD [facility] [address] [address] Consulting Physician Pulmonary Disease 06/04/21 Francie Waldron MD [address] [place] [address] [address] Consulting Physician Gastroenterology 06/04/21 Ramirez Rowe, MAURICIO [address] [place] [address] [address] Consulting Physician Podiatry 06/04/21 Carmina Dominguez, Matthew [address] [place] [address] [address] [place] [address] Pharmacist Pharmacy 02/11/22 02/22/22 Jennifer Henderson RN [address] [facility] [place] [address] Academic Director 02/15/23 03/01/23 documented as of this encounter
--- OUTSIDE RECORDS SUMMARY | 2025-03-04 03:20 | XMS_ITS | Clinical Summary ---
Author Organization [facility] Address [address] [place] [address] Care Team Providers Care Top And Seat Cover Fitter Name Role Phone Ramirez Wheeler MD Primary Care Provider [phone] Source Comments [facility],non-owned Affiliates and Associated Physician Practices is amultiple site organization consisting of ambulatory clinics and hospital sitesin [place], [place] and [place]. This disclosure is being madepursuant to the Care Everywhere program and may not contain all information available regarding this patient. Last updated 18.[facility] Allergies Active Allergy Reactions Criticality Noted Date [...] TAKE 2 CAPSULES BY MOUTH WEEKLY WITH 61853 IU CAPSULE TO EQUAL 70,000 IU WEEKLY [...] every 5 minutes as needed Active Creon 03851-856671 units capsule TAKE 4 CAPSULES BY MOUTH [...] mouth once daily Active Continuous Glucose Sensor (PERORAcom G7 Sensor) MISCIndication s:Type 1 diabetes, controlled, with neuropathy (HCC) Use 1 Each every 10 days 3 Each 2 06/28/20 24 Active Continuous Glucose Code Inspector (Dexcom G7 Code Inspector) DEVIIndication s:Type 1 diabetes, controlled, with neuropathy (HCC) Use 1 device as directed 1 Each 07/07/20 24 Active vitamin D, ergocalciferol , (Drisdol) 1.25 MG (06776 UT) capsuleIndicat ions:Vitamin D Deficiency Take 1 [...] artery disease of n ative artery of [place] heart with stable angina pectoris 02/09/2019 History [...] Description 02/19/2025 2:20 PM CDT Office Visit [address], [address] [address] Brigid Cano, BARKEEP-ENGINEERING AND OPERATIONS DIRECTOR Type 1 diabetes, controlled, with neuropathy (HCC) (Primary Dx); Fungal infection of nail; Gastroparesis 02/19/2025 Orders Only [facility] Endocrinology [address] [place] [address], [address] [address] Maryuri Tran MD 02/19/2025 Travel 01/22/2025 Results Follow-Up [facility] Endocrinology [address] [place] [address], [address] [address] Brigid Cano APRN-ENGINEERING AND OPERATIONS DIRECTOR 12/22/2024 Telephone [facility] Endocrinology [address] [place] [address], [address] [address] Maryuri Tran MD Medication Prior Auth Request 12/22/2024 Telephone [facility] Endocrinology [address] [place] [address] Maryuri Tran MD Insurance Issue/question 12/22/2024 Telephone [facility] - Endocrinology [address] [place] [address] Maryuri Tran MD Medication Prior Auth Request 12/22/2024 Telephone [facility] Endocrinology [address] [place] [address] [address] [place] [address] Maryuri Tran MD Insurance Issue/question 12/04/2024 Telephone [facility] - Endocrinology [address] [place] [address], [address] [address] Maryuri Tran MD Medication Issue; [...] on file Legal Sex Female 6:01 PM EMERGENCY MEDICINE NURSE PRACTITIONER Gender Identity Not on file Sexual Orientation [...] Description 05/28/2025 3:20 PM CDT Office Visit [facility] - Endocrinology [address] [place] [address], [address] [address] Brigid Cano, BARKEEP-ENGINEERING AND OPERATIONS DIRECTOR [address] [facility] ALINA [address] [place] [address] 08/22/2025 3:40 PM EMERGENCY MEDICINE NURSE PRACTITIONER Office Visit [facility] - Endocrinology [address] [facility], [address] [place] [address] [place] [address] [facility] [address] [place] [address] Health Maintenance Due Date Last Done Comments [...] OF CARE (HgbA1C) (02/27/2025 1:35 PM CDT) [facility] Hemoglobin A1c POCT 6.1 % Expiration Date 09/11/2026 Lot # [id number] QC Verified Yes Yes Blood BLOOD SPECIMEN / Unknown 02/27/2025 1:35 PM CDT [facility]id [facility] - POINT OF CARE ORDER KARYN Final Result * (ABNORMAL) GLUCOSE - POINT OF CARE (AMB) STL (02/27/2025 1:34 PM CDT) [facility] Glucose 136(A) 60 - 100 mg/dL Lot # [id number] Expiration Date 05/01/2026 QC Verified Yes Yes Blood BLOOD SPECIMEN / Unknown 02/27/2025 1:34 PM CDT Brigid Cano [facility] - POINT OF CARE ORDER KARYN Final Result * (ABNORMAL) C-PEPTIDE (02/19/2025 9:44 AM CDT) [facility] C-Peptide 0.54(L) 0.80 - 3.85 ng/mL [facility] Comment: Test Performed at: [facility] [employer] [address] [address] [address] REYNA STILES MD 02/19/2025 9:44 AM CDT 02/19/2025 9:50 AM CDT Maryuri Tran MD LAB - CHEMISTRY ORDERABL ES Final Result Performing Organization Address [facility] Co de Phone Number [address] [address] * (ABNORMAL) HEMOGLOBIN A1C (02/19/2025 9:44 AM [...] of diabetes for children. Test Performed at: [facility] [employer] [address] REYNA STILES MD 02/19/2025 9:44 AM CDT 02/19/2025 9:50 AM CDT Maryuri Tran MD LAB - CHEMISTRY ORDERABL ES Final Result Performing Organization Address [facility] de Phone Number [facility] [address] [place] [address] * FRUCTOSAMINE (02/19/2025 9:44 AM CDT) Fructosamine 250 205 - 285 umol/L [facility] Comment: Test Performed at: [facility] [address] [place] [address] SMITH TOMLIN MD,PHD,PAYTON 02/19/2025 9:44 AM CDT 02/19/2025 9:50 AM CDT Maryuri Tran MD LAB - CHEMISTRY ORDERABL ES Final Result Performing Organization Address [facility] Co de Phone Number [address] [address] * VITAMIN D 25-HYDROXY (02/19/2025 9:44 AM [...] D, (D2,D3), LC/MS/MS is recommended: order code [id number] (patients >2yrs). See Note 1 Note 1 For additional information, please refer to http://education.[employer]wenty.[employer]/faq/DLF818 (This link is being provided for informational/ educational purposes only.) Test Performed at: [facility] [address] [place] [address] REYNA STILES MD 02/19/2025 9:44 AM CDT 02/19/2025 9:50 AM CDT us Maryuri Tran MD LAB - CHEMISTRY ORDERABL ES Final Result Performing Organization Address [facility]/ZIP Co de Phone Number [facility] [address] [place] [address] * GLUTAMIC ACID DECARBOXYLASE (PAUL) ANTIBODY (02/19/2025 9:44 AM CDT) Glutamic Acid Decarboxylase Antibody <5 <5 IU/mL [facility] Comment: This test was performed using the GAD65 JENNA method, which is standardized against the International reference preparation 97/550. Test Performed at: [facility] [address] [place] [address] MARE LOAIZA MD,PHD 02/19/2025 9:44 AM CDT 02/19/2025 9:50 AM CDT us Maryuri Tran MD LAB - SEROLOGY ORDERABLE S Final Result Performing Organization Address City/[facility]/ZIP Co de Phone Number [facility] [address] [place] [address] * (ABNORMAL) CBC WITH DIFFERENTIAL (02/19/2025 9:44 AM CDT) Pathologist [facility] White Blood Cell Count 11.7(H) 3.8 - [...] 0.9 % [facility] Comment: Test Performed at: [facility] [employer] [address] REYNA STILES MD 02/19/2025 9:44 AM CDT 02/19/2025 9:50 AM CDT us Maryuri Tran MD LAB - HEMATOLOGY ORDERAB LES Final Result [address] [address] * (ABNORMAL) COMPREHENSIVE METABOLIC PANEL (02/19/2025 9:44 AM CDT) [facility] Glucose 99 65 - 99 mg/dL [...] 29 U/L [facility] Comment: Test Performed at: [facility] [employer] [address] REYNA STILES MD 02/19/2025 9:44 AM CDT 02/19/2025 9:50 AM CDT Maryuri Tran MD LAB - CHEMISTRY ORDERABL ES Final Result [address] [address] * CALCIUM/CREAT RATIO URINE RANDOM PANEL (02/19/2025 9:44 AM CDT) Calcium Random Urine 154 10 - 320 mg/g creat [facility] Calcium Random Urine 7.1 mg/dL [facility] Comment: Reference Range Not established Creatinine Urine 46 20 - 275 mg/dL [facility] Comment: Test Performed at: [facility] [address] [place] [address] REYNA STILES MD 02/19/2025 9:44 AM CDT 02/19/2025 9:50 AM CDT Maryuri Tran MD LAB - URINE CHEMISTRY OR DERABLES Final Result Performing Organization Address [facility] [place] [address] * (ABNORMAL) TSH (02/19/2025 9:44 AM CDT) Pathologist [facility] TSH 0.01(L) 0.40 - 4.50 mIU/L [facility] Comment: Test Performed at: [facility] [employer] [address] REYNA STILES MD 02/19/2025 9:44 AM CDT 02/19/2025 9:50 AM CDT Maryuri Tran MD LAB - CHEMISTRY ORDERABL ES Final Result Performing Organization Address [facility] de Phone Number [address] [address] * (ABNORMAL) T4 FREE (02/19/2025 9:44 AM CDT) [facility] T4 Free 1.9(H) 0.8 - 1.8 ng/dL [facility] Comment: Test Performed at: [facility] [employer] [address] REYNA STILES MD 02/19/2025 9:44 AM CDT 02/19/2025 9:50 AM CDT Maryuri Tran MD LAB - CHEMISTRY ORDERABL ES Final Result Performing Organization Address [facility] Co de Phone Number [address] [address] * T3 TOTAL (02/19/2025 9:44 AM CDT) [facility] T3 Total 109 76 - 181 ng/dL [facility] Comment: Test Performed at: [facility] [employer] [id number] [place] [address] REYNA STILES MD 02/19/2025 9:44 AM CDT 02/19/2025 9:50 AM CDT us Maryuri Tran MD LAB - CHEMISTRY ORDERABL ES Final Result [address] [address] * (ABNORMAL) LIPID PROFILE (02/19/2025 9:44 AM [...] LDL-C. Johnson SAGASTUME et al. ANUM. 2013;310(19): 9254-7134 (http://education.Qwenty.Axerra Networks/faq/RVA981) CHOL/HDLC RATIO 3.0 <5.0 (calc) [facility] Non HDL Cholesterol 61 <130 mg/dL (calc) [facility] Comment: For patients with diabetes plus 1 major ASCVD risk factor, treating to a non-HDL-C goal of <100 mg/dL (LDL-C of <70 mg/dL) is considered a therapeutic option. Test Performed at: [facility] [address] REYNA STILES MD 02/19/2025 9:44 AM CDT 02/19/2025 9:50 AM CDT us Maryuri Tran MD LAB - CHEMISTRY ORDERABL ES Final Result [address] [address] * MICROALB/CREAT RATIO URINE RANDOM PANEL (11/08/2024 [...] within a diagnostic category. Test Performed at: [employer] [address] [facility] [place] [address] REYNA STILES MD 11/08/2024 7:28 AM CDT 11/08/2024 7:32 AM CDT Brigid Cano BARKEEP-ENGINEERING AND OPERATIONS DIRECTOR LAB - URINE CHEMISTRY ORD ERABLES Final Result Performing Organization Address City/State/[facility] Co de Phone Number [employer] [address] [place] [address] from Last 3 Months or Most Recently Relevant to Health Maintenance Insurance MEDICARE MEDICAID - OUT OF STATE [facility] [place] MEDICARE Care Teams Top And Seat Cover Fitter Relationship Specialty Start Date End Date Ramirez Wheeler MD [address] [place] [address] PCP - General 11/30/17
--- OUTSIDE RECORDS SUMMARY | 2025-03-04 03:20 | XMS_ITS | Encounter Summary ---
Author Organization [facility] Facility Care Team Providers Care Sterilizer Operator Name Role Phone Ramirez Wheeler MD Primary Care Provider [phone] Guillermina Kingston RN Unavailable [phone] Guillermina Kingston RN Unavailable [phone] Guillermina Kingston RN Unavailable [phone] Laine Ortiz MD Unavailable [phone] aJni Howard MD Unavailable [phone] Francie Waldron MD Unavailable [phone] Ramirez Rowe DPM Unavailable [phone] Carmina Dominguez [facility] Unavailable Gia Solano Primary Care Provider Jennifer Henderson RN Unavailable [phone] Laine Ortiz MD Primary Care Provider [phone] Suleman Escalante MD Primary Care Provider [phone] Encounter Details Date Type Department Care Team (Latest Contact Info) Description 10/30/2016 Orders Only [facility] CLINCONV Provider, MD Diana [address] [place] [address] Social History Tobacco Use Types Packs/Day Years Used Date Smoking Tobacco: Never Comments Unknown Sex and Gender Information Value Date Recorded Sex Assigned at Not on file Legal Sex Female 2:48 AM ROLL UP GUIDER OPERATOR Gender Identity Not on file Sexual [...] documented as of this encounter Care Teams Sterilizer Operator Relationship Specialty Start Date End Date Ramirez Wheeler MD PCP - General Family Medicine 05/11/18 05/03/22 Gia Solano PA [address] [place] [address] [address] [place] [address] PCP - General Family Medicine 05/04/22 11/04/22 Laine Ortiz MD [address] [address] PCP - General Cardiology 03/02/23 06/10/23 [place] [address] [place] [address] PCP - General Family Medicine 06/11/23 09/23/23 Guillermina Kingston, SILVINO Demolition Crane Operator 11/23/18 12/12/18 Guillermina Kingston, RN Demolition Crane Operator 12/13/18 12/13/18 Guillermina Kingston, SILVINO Demolition Crane Operator 12/13/18 02/08/19 Laine Ortiz MD [address] [address] Referring Physician Cardiology 06/04/21 Jani Howard MD [facility] [address] [place] [address] Consulting Physician Pulmonary Disease 06/04/21 Francie Waldron MD [address] [facility] [address] [place] [address] Consulting Physician Gastroenterology 06/04/21 Ramirez Rowe, DPM [address] [facility] [address] [place] [address] Consulting Physician Podiatry 06/04/21 Carmina Dominguez RPh [address] [facility] [address] [place], [place] [address] Pharmacist Pharmacy 02/11/22 02/22/22 Jennifer Henderson RN [address] [place] [place] [address] Demolition Crane Operator 02/15/23 03/01/23 documented as of this encounter
--- OUTSIDE RECORDS SUMMARY | 2025-03-04 03:20 | XMS_ITS | Clinical Summary ---
Author Organization [facility] [address] [facility] Address [address] [place] [address] Care Team Providers Care Pattern Vault Clerk Name Role Phone Laine Ortiz MD Unavailable [phone] Jani Howard MD Unavailable [phone] Francie Waldron MD Unavailable [phone] Ramirez Rowe DPM Unavailable [phone] Allergies Active Allergy Reactions Criticality Noted Date [...] 12 hr tabletIndications: Coronary artery disease of asa'[place] artery of asa[place]cars[place] heart with stable angina pectoris Take 1 tablet (1,000 mg total) by mouth 2 (two) times a day 180 tablet 3 01/01/20 Active insulin aspart (NovoLOG) 100 unit/mL (3 mL) pen for injectionIndicatio ns:Type 2 diabetes mellitus with diabetic autonomic neuropathy, with long-term current use of insulin ([facility]) INJECT SUBCUTANEOUSLY DIRECTED PER SLIDING SCALE, DO NOT EXCEED 45 UNITS DAILY 9 mL 1 01/01/20 Active Additional Information Patient taking differently: 0-5 Units subcutaneous 3 times daily with meals, INJECT SUBCUTANEOUSLY DIRECTED PER SLIDING SCALE, DO NOT EXCEED 45 UNITS [id number] 1 [id number] 2 -659 3 [id number] 4 [id number] 5 units, Reported on 03/21/[address] [...] 1 TABLET (75 MCG TOTAL) BY MOUTH EQUINE VET BEFORE BREAKFAST 90 tablet 03/27/20 22 Active levothyroxine (SYNTHROID) 200 mcg tabletIndications: Postprocedural hypothyroidism TAKE 1 TABLET (200 MCG TOTAL) BY MOUTH EQUINE VET BEFORE BREAKFAST 90 tablet 03/27/20 22 Active [...] 75 mg tabletIndications: Coronary artery disease of [place]a'[place] artery of [place] heart with stable angina pectoris Take 1 [...] 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 Assessment & Plan (09/18/2018 9:19 AM BAGEL MAKER): -s/p auto islet cell transplantation -Cont pancreatic enzymes, insulin as noted above Assessment & Plan (09/17/2018 5:22 AM BAGEL MAKER): -s/p auto islet cell transplantation -Cont pancreatic enzymes, insulin as noted above Situational anxiety 09/17/2018 Assessment & Plan (09/18/2018 9:18 AM BAGEL MAKER): -Cont home Effexor, Ativan PRN Assessment & Plan (09/17/2018 5:25 AM BAGEL MAKER): -Cont home Effexor, Ativan PRN Incomplete tear of right rotator cuff 09/07/2018 Other osteoporosis without current pathological fracture 09/07/2018 Peripheral polyneuropathy 05/16/2018 Gastroparesis 02/08/2018 Type 2 diabetes mellitus wit h diabetic autonomic neuropathy, with long-term current use of insulin ([facility]) 02/08/2018 Hyperlipidemia, mixed 05/25/2017 Irritable bowel syndrome with diarrhea 7 Psychophysiologic insomnia 05/25/2017 Assessment & Plan (06/22/2022 3:19 PM BAGEL MAKER): I have sent an order over for Ambien 5 mg. 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 heart with stable angina pectoris 12/07/2019 05/14/2020 Overview (12/07/2019): Last Assessment & Plan: -s/p CABG Continue ASA/Plavix/statin Pure hypercholesterolemia 06/15/2019 Essential hypertension 06/15/201905/14 Anemia 02/09/2019 05/14/2020 Pancreatic disease 02/09/2019 0 Thyroid dysfunction 02/09/2019 05/14/20 20 Disorder of pancreas 02/09/2019 020 Abdominal pain 09/17/2018 05/14/2020 Assessment & Plan (09/18/2018 9:18 AM BAGEL MAKER): -Likely due to UTI and mild dehydration in setting of finicky bowel; improved with treatment of UTI, CT A/P from [facility] grossly negative continue PPI BID -Treatment of UTI as noted below -Pain control with home Tramadol. Avoid IV opiates if possible. Assessment & Plan (09/17/2018 5:29 AM BAGEL MAKER): -Pt presenting with 1 week of mid [...] of symptoms. Obtain recent CT A/P from [facility] although may need repeat CT. -IV PPI BID -Check Cdiff, stool cx -Cont home Zofran PRN and Reglan 10 QID, however Reglan should not be used [facility] -Treatment of UTI as noted below -Pain control with home Tramadol. Avoid IV opiates if possible. -CLD and advance diet as tolerated -Consider GI c/s if symptoms do not improve Diarrhea 09/17/2018 05/14/2020 Assessment & Plan (09/17/2018 5:18 AM BAGEL MAKER): -Pt worsening of chronic diarrhea. Reports compliance with pancreatic enzymes. 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 Home insulin regimen Lantus 7 U QHS. 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 Home insulin regimen Lantus 7 U QHS. -Accuchecks + extra LDSSI Complicated UTI (urinary tract infection) 09/17/2018 05/14/2020 Assessment & Plan (09/18/2018 9:16 AM BAGEL MAKER): -U/A c/f UTI at OSH s/p Levaquin [...] Rxs. Assessment & Plan (09/17/2018 5:27 AM BAGEL MAKER): -U/A c/f UTI at OSH s/p Levaquin [...] disease invo lving coronary bypass graft of asa'carsarmiut heart without angina pectoris 01/22/2017 05/14/2020 Gastric [...] Mother Briseyda Relation Name Status Comments Brother oLpez Father [place] Mother Briseyda Social History Tobacco [...] week 07/20/2022 How often do you attend [facility] or catholic services? Never 07/20/2022 Do you belong to any clubs o r organizations such as samaritan groups, unions, fraternal or athletic groups, or [...] staff should administer the PHQ-9) 0 07/20/2022 [facility] - Occupational Stress [...] on file Legal Sex Female 2:48 AM BAGEL MAKER Gender Identity Not on file Sexual [...] Screening Discontinued Medical Devices Implanted Type Area Franchise Business Consultant Device Identifier Shelf Expiration Date Model / Serial / Lot Sensor N/A: Abdomen Wires N/A: Chest Wall Abilio,Screws Right: Leg Procedures Procedure Name Priority Date/Time Associated Diagnosis Comments EGFR Routine 03/29/2022 5:44 AM CDT LIPID PANEL Routine 12/12/2021 12:01 PM CDT ALBUMIN CREATININE RATIO, URINE Routine 12/12/2021 11:52 AM CDT HEMOGLOBIN A1C Routine 08/15/2019 11:36 AM BAGEL MAKER Type 2 diabetes mellitus with diabetic autonomic [...] eGFR 97 mL/min/1. 73 m2 [facility] Comment: Interpretive Data Reference Interval Normal >/= [...] BLOOD ORDERABLES Elyssa joel Result [facility] ([facility]) 1 [facility] Department [place] [address] * (ABNORMAL) Lipid panel (12/12/2021 12:01 PM [...] BLOOD ORDERABLES Final Result Performing Organization Address [facility] Co de Phone Number [address] [place] [address] * Albumin Creatinine Ratio, Urine (12/12/2021 11:52 AM CDT) Albumin Ur 13.8 mg/L [facility] Comment: Interpretive Data No reference range established. Current interpretive data was last revised 2018. Creatinine Ur 58.0 mg/dL [facility] Comment: Interpretive Data No reference range established. Current interpretive data was last revised 2018. Albumin Creatinine Ratio, Ur 24 1 - 29 mg/g [facility] Urine 12/12/2021 11:5 2 AM CDT 12/12/2021 12:13 PM CDT Brain Salinas MD LAB URINE ORDERABLES Final Result Performing Organization Address City/[facility] Co de Phone Number [address] [place] [address] * (ABNORMAL) Hemoglobin A1c (08/15/2019 11:36 AM BAGEL MAKER) Hemoglobin A1c % 5.7(H) 4.0 - 5.6 % [facility] Comment: ADA 2016 GUIDELINES: Initial Diagnostic Criteria HbA1c Result: Interpretation: <5.7% Normal 5.7-6.4% At risk for diabetes mellitus >=6.5% Consistent with diabetes mellitus Diabetes monitoring Target value (ADA Recommended) <7% Blood specimen (specimen) 08/15/2019 11:36 AM BAGEL MAKER 08/15/2019 1:42 PM BAGEL MAKER Narrative Resulting Agency Comment CLI us Gia [facility]IVER[facility] LAB BLOOD ORDERABLES Fi nal Result [address] [address], [facility] [phone] * Dexa Axial Skeleton Bone Density 1 [...] PM: Deonte Nelson M.D. Deonte Nelson M.D. NH:wv 04:35 PM 04:35 PM [facility] [EOD] Narrative [...] dairy products and caffeinated beverages. COMPARISON(S): None CMV DRIVER/MODEL: Inveni Discovery SL (SN [id number]) FINDINGS: AP lumbar spine L1-L4 Total BMD is 0.887 g/cu9X-kcysg is -1.5 Left Hip Total BMD is 0.895 g/og4T-ddgmk is -0.4 Neck BMD is 0.73 g/rq6H-dudcf is -1.1 Fracture risk assessment (FRAX): 10 [...] dairy products and caffeinated beverages. COMPARISON(S): None CMV DRIVER/MODEL: Inveni Discovery SL (SN [id number]) FINDINGS: AP lumbar spine L1-L4 Total BMD is 0.887 g/ra2G-whgxp is -1.5 Left Hip Total BMD is 0.895 g/jw5G-jslku is -0.4 Neck BMD is 0.73 g/dv5T-ruyvn is -1.1 Fracture risk assessment (FRAX): 10 [...] Nelson M.D. NH:marilyn 04:35 PM 04:35 PM [facility] [EOD] Ramirez Wheeler MD IMG DXA PROCEDURES [...] by: Dr. Deonte Nelson nh/:04/01/2015 16:55:51 Director Business Intelligence: Sita Sotelo RT Norma)(M), [facility] letter sent: Normal Exam Reading location: BI-RADS: 1 Negative [EOD] Narrative 04/01/2015 4:56 PM CDT - [facility] BILAT SCREENING 3D W/CAD BILATERAL DIGITAL SCREENING [...] Note Provider, MD Diana - 12/17/2020 - [facility] BILAT SCREENING 3D W/CAD BILATERAL DIGITAL SCREENING [...] by: Dr. Deonte Nelson nh/:04/01/2015 16:55:51 Director Business Intelligence: Sita Sotelo RT (Jhon)(M), [facility] letter sent: Normal Exam Reading location: BI-RADS: 1 Negative [EOD] us Ramirez Wheeler MD IMG MAMMO PROCEDURES Final Resu lt from Last 3 Months or Most Recently Relevant to Health Maintenance Insurance [facility] Advance Directives For more information, please contact: [phone] Documents on File Type Date Recorded Patient Fiberglass Model Maker Expl anation ADVANCE DIRECTIVE 06/13/2013 12:00 AM POW ER OF ELECTRONICS TECHNICIAN FINANCIAL/MEDICAL * Full Code (Latest Code Status on File) Date Activated Date Inactivated Comments 03/28/2022 9:01 AM 03/29/2022 5:21 PM * Full Code Date Activated Date Inactivated Comments 03/18/2022 12:09 AM 03/21/2022 7:25 PM * Full Code Date Activated Date Inactivated Comments 09/17/2018 4:42 AM 09/18/2018 6:53 PM Care Teams Pattern Vault Clerk Relationship Specialty Start Date End Date Laine Ortiz MD [address] [address] Referring Physician Cardiology 06/04/21 Jani Howard MD [address] [facility] [address] [place] [address] Consulting Physician Pulmonary Disease 06/04/21 Francie Waldron MD [address] [facility] [address] [address] [place] [address] Consulting Physician Gastroenterology 06/04/21 Ramirez Rowe, DPM [address] [facility] [address] [place] [address] Consulting Physician Podiatry 06/04/21
[2025-03-04] MEDS: ONDANSETRON INJ 4 MG/2 ML VIAL IV PUSH ×2 (03:43→05:29)
[2025-03-04] MEDS: LACTATED RINGERS 1,000 ML 999 ML IV CONT ×2 (03:43→06:58)
[2025-03-04] MEDS: MORPHINE SULFATE (*CRX) 2 MG/ML INJ IV PUSH ×2 (03:47→05:29)
[2025-03-04 03:48] LABS: Alanine Aminotransferase 41 U/L (6-35); Albumin Level 4.2 g/dL (3.5-5.1); Alkaline Phosphatase 128 U/L (38-126); Anion Gap 7 mmol/L (4-12); Aspartate Amino Transferase 40 U/L (14-36); Bilirubin,Total 0.5 mg/dL (0.2-1.3); Blood Urea Nitrogen 19 mg/dL (7-17); Calcium 9.6 mg/dL (8.4-10.2); Carbon Dioxide 21 mmol/L (22-30); Chloride 107 mmol/L (98-107); Estimated CRCL calculation 68 ml/min; Estimated Glomerular Filt Rate > 60; Glucose 148 mg/dL (65-110); Potassium 4.2 mmol/L (3.4-5.0); Sodium 135 mmol/L (137-145); Total Protein 7.7 g/dL (6.3-8.2)
--- NOTE | 2025-03-04 04:05 | ED_ITS ---
HPI - Abdominal Pain General Chief Complaint: Abdominal Pain Stated Complaint: abd pain, n/v Time Seen by Provider: 03/04/25 03:00 History of Present Illness HPI narrative: Patient with history of diabetes, small-bowel obstructions, presents here with nausea vomiting despite trying home Zofran, she is concerned she may have another bowel obstruction. Related Data Home Medications ?Medication ?Instructions ?Recorded ?Confirmed ?Last Taken ?Type amlodipine 5 mg tablet (Norvasc) 5 mg PO DAILY 01/22/22 01/22/22 Unknown History buspirone 10 mg tablet 7.5 mg PO HS 01/22/22 01/22/22 Unknown History clopidogrel 75 mg tablet (Plavix) 75 tablet PO DAILY 01/22/22 01/22/22 Unknown History cyclobenzaprine 10 mg tablet 10 mg PO HS 01/22/22 01/22/22 Unknown History famotidine 20 mg tablet (Pepcid) 20 mg PO BID 01/22/22 01/22/22 Unknown History gabapentin 300 mg tablet 300 mg PO BID 01/22/22 01/22/22 Unknown History insulin aspart U-100 100 unit/mL 1 sliding scale dose subcut 01/22/22 01/22/22 Unknown History subcutaneous solution (Novolog USEASDIRECTD U-100 Insulin aspart) insulin glargine 100 unit/mL 15 unit subcut DAILY 01/22/22 01/22/22 Unknown History subcutaneous cartridge levothyroxine 300 mcg tablet 300 mcg PO DAILY 01/22/22 01/22/22 Unknown History gffjzv-eagzgrav-ugggwdf 4 cap PO QID 01/22/22 01/22/22 Unknown History 36,000-114,000-180,000 unit capsule,delay rel (Creon) nebivolol 10 mg tablet (Bystolic) 10 mg PO DAILY 01/22/22 01/22/22 Unknown History pantoprazole 40 mg tablet,delayed 40 mg PO BID 01/22/22 01/22/22 Unknown History release (Protonix) pitavastatin calcium 2 mg tablet 2 mg PO DAILY 01/22/22 01/22/22 Unknown History (Livalo) ranolazine 1,000 mg 1,000 mg PO BID 01/22/22 01/22/22 Unknown History tablet,extended release,12 hr zolpidem 5 mg tablet (Ambien) 5 mg PO HS 01/22/22 01/22/22 Unknown History Allergies Allergy/AdvReac Type Severity Reaction Status Date / Time Penicillins Allergy Unknown Hives Verified 03/04/25 03:41 Sulfa (Sulfonamide Allergy Unknown Hives Verified 03/04/25 03:41 Antibiotics) vancomycin Allergy Unknown Hives Verified 03/04/25 03:41 HYDROMORPHONE HCL Allergy Unknown Unknown Uncoded 08/02/24 01:45 PROCHLORPERAZINE EDISYLATE Allergy Unknown Unknown Uncoded 08/02/24 01:45 PROCHLORPERAZINE MALEATE Allergy Unknown Unknown Uncoded 08/02/24 01:45 PROPOXYPHENE NAPSYLATE Allergy Unknown Unknown Uncoded 08/02/24 01:45 Review of Systems 2 Review of Systems: All systems reviewed & are unremarkable except as noted in HPI and below PMFSH Past Medical History Medical History Bowel obstruction Surgical History Surgical History H/O splenectomy H/O heart bypass surgery Family History Family History Other Diabetes mellitus Family history of Alzheimer's disease Family history of arthritis Family history of cardiovascular disease Family history of glaucoma Family history of malignant neoplasm Hypertension Social History Social History Smoking status: Never smoker Alcohol intake: current Exam 2 Narrative: EXAMINATION OF ORGAN SYSTEMS/BODY AREAS: Constitutional: Vital signs per nursing GENERAL: Appearsvery uncomfortable, holding emesis bag HEAD: Normal with no signs of head trauma. EYES: EOMI, conjunctiva normal ENT: Hearing grossly intact LUNGS: Nonlabored breathing. HEART: [Regular rate and rhythm] ABD: [Soft], no focal tenderness EXT: Normal range of motion SKIN: [No rashes or lesions.] NEURO: [Alert and oriented x 3. No gross focal sensory or strength deficits.] PSYCH: Normal affect Course Vital Signs Vital signs: Vital Signs Temperature 98.4 F 03/04/25 02:12 Pulse Rate 99 03/04/25 02:12 Respiratory Rate 18 03/04/25 02:12 Blood Pressure 168/92 H 03/04/25 02:12 Pulse Oximetry 99 03/04/25 02:12 Oxygen Delivery Room Air 03/04/25 02:12 Temperature 98.2 F 03/04/25 03:00 Pulse Rate 69 03/04/25 05:57 Respiratory Rate 17 03/04/25 05:57 Blood Pressure 143/80 H 03/04/25 05:57 Pulse Oximetry 97 03/04/25 05:57 Oxygen Delivery Room Air 03/04/25 03:00 MDM - Abdominal Pain MDM Narrative Medical decision making narrative: Electronic medical record was reviewed. Patient presented to the ED with complaint of [abdominal pain and vomiting]. Vitals [were within acceptable limits]. Physical exam revealed [tenderness to palpation in periumbilical abdomen]. Based on the patient's history and physical exam, my differential includes but is not limited to [gastritis, gastroenteritis, SBO]. [IV access was established by nursing staff. Patient was given zofran, morphine, which usually works for her for her symptoms]. CBC, BMP, lipase, LFTs, bilirubin and alk phos were obtained. Labs were pertinent for slightly elevated white count. Decision was made to obtain a CT- abdomen to evaluate for acute abdominal process. This is still pending at this time. On re-evaluation, patient feeling better but still having some symptoms, additional medications given, with much improvement in symptoms. On re-evaluation, she feels much better. CT abdomen/pelvis by stat read without acute abnormality. Discussed with patient, she has GI and she is comfortable with outpatient management with return precautions. Lab Data 03/04/25 03:10 03/04/25 03:10 Labs: Lab Results 03/04/25 03/04/25 Range/Units 03:10 05:22 WBC 13.5 H (4.5-10.0) K/mm3 RBC 4.81 (4.2-5.4) M/mm3 Hgb 13.9 (12.0-15.0) g/dL Hct 43.5 (37.0-47.0) % MCV 90.4 (80-100) fl MCH 28.9 (26-34) pg MCHC 32.0 (32-36) g/dl RDW 14.0 (11.5-14.5) % Plt Count 466 H (150-375) k/mm3 MPV 10.5 H (7.4-10.4) fl Immature Gran % (Auto) 0.3 (0-0.5) % Neut % (Auto) 54.6 (45.5-73.1) % Lymph % (Auto) 34.4 (18.3-44.2) % Lynn % (Auto) 7.6 (2.6-8.5) % Eos % (Auto) 2.4 (0-4.4) % Baso % (Auto) 0.7 (0.2-1.2) % Lymph # (Auto) 4.64 H (0.9-3.2) K/mm3 Lynn # (Auto) 1.0 H (0.1-0.6) K/mm3 Eos # (Auto) 0.3 (0-0.3) K/mm3 Baso # (Auto) 0.1 (0.0-0.1) K/mm3 Abs Immat Gran (auto) 0.04 H (0.00-0.031) K/mm3 Absolute Neuts (auto) 7.4 H (1.3-6.7) K/mm3 Absolute Nucleated RBC 0.000 (0.0-0.012) K/mm3 Nucleated RBC % 0.0 (0.0-0.2) % Sodium 135 L (137-145) mmol/L Potassium 4.2 (3.4-5.0) mmol/L Chloride 107 (98-107) mmol/L Carbon Dioxide 21 L (22-30) mmol/L Anion Gap 7 (4-12) mmol/L BUN 19 H (7-17) mg/dL Creatinine 0.67 L (0.7-1.0) mg/dL Estim Creat Clear Calc 68 ml/min Estimated GFR > 60 (59 - ) Glucose 148 H (65-110) mg/dL Calcium 9.6 (8.4-10.2) mg/dL Total Bilirubin 0.5 (0.2-1.3) mg/dL AST 40 H (14-36) U/L ALT 41 H (6-35) U/L Alkaline Phosphatase 128 H (38-126) U/L Total Protein 7.7 (6.3-8.2) g/dL Albumin 4.2 (3.5-5.1) g/dL Lipase < 20 L (23-300) U/L Beta-Hydroxybutyrate/Acetoacetate 0.30 H (0.02-0.27) mmol/L Urine Color Yellow (Yellow) Urine Appearance Clear (Clear) Urine pH 5.5 (5.0-9.0) Ur Specific [place] 1.025 (1.001-1.035) Urine Protein Trace (Negative) mg/dL Urine Glucose (UA) Negative (Negative) mg/dL Urine Ketones Trace H (Negative) mg/dL Ur Blood (Man) Negative (Negative) Urine Nitrate Negative (Negative) Urine Bilirubin Negative (Negative) Urine Urobilinogen 0.2 (<2.0) mg/dL Leukocyte Esterase Rfl 1+ H (Negative) ENIO/UL Discharge Plan Discharge Clinical Impression: Abdominal pain Patient Disposition: Home Condition: Stable Instructions: Abdominal Pain (ED) Additional Instructions: 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 You can always return for any further issues. Patient Language: Hebrew Prescriptions: New dicyclomine 20 mg tablet 20 mg PO TID PRN (Reason: abdominal pain) Qty: 30 0RF No Action methylprednisolone [Medrol (Mateo)] 4 mg tablets,dose pack See Rx Instructions .ROUTE .COMPLEX Qty: 21 0RF Rx Instructions: for 6 days cyclobenzaprine 10 mg tablet 10 mg PO BID PRN (Reason: muscle spasm) Qty: 14 0RF hydrocodone-acetaminophen 5-325 mg tablet 1 tablet PO Q12H PRN (Reason: pain) Qty: 14 0RF cephalexin 500 mg capsule 500 mg PO Q12H Qty: 10 0RF cyclobenzaprine [Flexeril] 10 mg Tablet 10 mg PO HS levothyroxine 300 mcg Tablet 300 mcg PO DAILY clopidogrel [Plavix] 75 mg tablet 75 tablet PO DAILY amlodipine [Norvasc] 5 mg Tablet 5 mg PO DAILY famotidine [Pepcid] 20 mg Tablet 20 mg PO BID insulin aspart U-100 [Novolog U-100 Insulin aspart] 100 unit/mL Solution 1 sliding scale dose SUBCUT USEASDIRECTD pantoprazole [Protonix] 40 mg Tablet,Delayed Release (Dr/Ec) 40 mg PO BID buspirone [BuSpar] 10 mg Tablet 7.5 mg PO HS zolpidem [Ambien] 5 mg Tablet 5 mg PO HS gabapentin 300 mg Tablet 300 mg PO BID Lantus U-100 Insulin 100 unit/mL Cartridge 15 unit SUBCUT DAILY ranolazine 1,000 mg tablet extended release 12 hr 1,000 mg PO BID nebivolol [Bystolic] 10 mg Tablet 10 mg PO DAILY Livalo 2 mg Tablet 2 mg PO DAILY Creon 36,000-114,000- 180,000 unit Capsule,Delayed Release(Dr/Ec) 4 cap PO QID Rx Instructions: administer with meals and/or snacks Follow-up/Referrals: Liam,Ramirez Gorman MD [Primary Care Provider] -
[2025-03-04 04:21] LABS: Lipase < 20 U/L (23-300)
[2025-03-04 04:37] LABS: Beta-Hydroxybutyrate/Acetoacetate 0.30 mmol/L (0.02-0.27)
--- NOTE | 2025-03-04 05:34 | PC.NURSE ---
Patient requesting her 40mg of pepcid and 80mg of protonix since she is was not able to keep her meds down today and is now having acid reflux. ERP notified. .
[2025-03-04 05:42] LABS: Add Urine Microscopic? YES; Appearance Urine Clear (Clear); Glucose Urine UA Negative (Negative); Leukocyte Esterase Ur 1+ LEU/UL (Negative); Nitrate Urine Negative (Negative); Specific Grav Ur 1.025 (1.001-1.035)
[2025-03-04] MEDS: FAMOTIDINE 20 MG TABLET 40 MG PO (05:44)
[2025-03-04] MEDS: PANTOPRAZOLE 40 MG TABLET 80 MG PO (05:44)
== END 2025-03-04 08:22 | disposition home or self-care (01) ==
PROVIDERS: Emergency Provider Emergency Medicine; PCP Family Medicine
DX: R10.9 Unspecified abdominal pain (principal); E11.9 Type 2 diabetes mellitus without complications; Z90.81 Acquired absence of spleen; Z95.1 Presence of aortocoronary bypass graft; Z79.02 Long term (current) use of antithrombotics/antiplatelets; Z79.899 Other long term (current) drug therapy; Z79.4 Long term (current) use of insulin
CPT/HCPCS: 36415; 74176; 80053; 81001; 82010; 83690; 85025; 87086; 96361; 96374; 96375; 96376; 99284; A9270; J2270; J2405; J7120